=== PATIENT | female | born 1965 | race African-American/Black ===

== ENCOUNTER 2019-05-10 08:07 | Outpatient (CLI) | payer MEDICARE, MEDICAID, SELFPAY ==
--- NOTE | ~2019-05-10 | CT_ITS ---
EXAMINATION: CT abdomen pelvis w con DATE: 05/10/2019 08:47 INDICATION: Abdominal distention. Left leg lymphedema. TECHNIQUE: Computed tomography (CT) of the abdomen and pelvis was performed with 100 cc Omnipaque 350 intravenous contrast. Automated exposure control and iterative reconstruction technique were employe d. Exam dose: 1280.74 mGy-cm total exam DLP. COMPARISON: 10/15/2017 abdominal ultrasound complete FINDINGS: Prominent discoid atelectasis or scarring is noted at the lung bases bilaterally. There is a calcified pulmonary granuloma in the posterior left lower lobe. Normal heart size. No pericardial or pleural effusion. Small sliding hiatal hernia. Postoperative changes of the stomach and small bowel likely related to g astric bypass surgery. Status post cholecystectomy. No hepatic, splenic, pancreatic, adrenal or renal space-occupying mass l esion is detected. Small nonobstructing mid right renal calculus; no other urinary tract calculus or hydroureteronephrosis is evident. Atherosclerotic calcification of the abdominal aorta and iliac arteries; no abdominal aortic aneurysm is evident. No intraperitoneal or retroperitoneal or pelvic mass lesion or adenopathy or ascites is evident. Normal appendix. There is a prominent amount of fecal material in the colon but no evidence of bowel obstruction. There is extensive streak artifact from bilateral hip replacements, which unfortunately obscures the urinary bladder and a large portion of the lower pelvis. There are multiple ventral fat-containing abdominal wall hernias. There is multilevel degenerative disc disease of the lumbosacral spine, involving particularly L3-4, L4-5 and L5-S1. There is degenerative change at the apophyseal joints with associated grade 1 anterolisthesis at L4-5 . Diffuse idiopathic skeletal hyperostosis of the lower thoracic spine. Bilateral total hip replacement IMPRESSION: Small sliding hiatal hernia Gastric bypass Status post cholecystectomy Normal appendix. No evidence of bowel obstruction Small nonobstructing right renal calculus Multiple ventral abdominal wall fat-containing hernias Reviewed, dictated and finalized at Location [facility]. Reviewed, dictated and finalized at location B. UTIVE RELATIONS SPECIALIST
== END 2019-05-10 08:08 | disposition home or self-care (01) ==
LOC: ANHIMG 08:12
PROVIDERS: PCP Emergency Medicine; Visit Provider Emergency Medicine
DX: R14.0 Abdominal distension (gaseous) (principal); Z90.49 Acquired absence of other specified parts of digestive tract; K44.9 Diaphragmatic hernia without obstruction or gangrene; N20.0 Calculus of kidney; K43.9 Ventral hernia without obstruction or gangrene
CPT/HCPCS: 74177; Q9967

== ENCOUNTER 2019-05-19 08:40 | Outpatient (CLI) | payer MEDICARE, MEDICAID, SELFPAY ==
--- NOTE | ~2019-05-19 | MM_ITS ---
EXAMINATION: MM screening daryl BI w naeem HISTORY: Screening mammogram TECHNIQUE: Craniocaudal and mediolateral oblique 3-D tomosynthesis images were obtained and synthetic 2-D images were generated. CAD analysis was submitted and interpreted. COMPARISON: Comparison to multiple prior studies sequentially, with oldest reviewed study dated 10/14. BREAST PARENCHYMAL COMPOSITION: There are scattered areas of fibroglandular density. FINDINGS: There is no evidence of suspicious mass, calcification, or architectural distortion to sugg est malignancy in either breast. There has been no suspicious interval change. IMPRESSION: 1. No mammographic evidence of malignancy. 2. Recommend routine screening mammography in one year. BI-RADS Category 1: Negative Reviewed, dictated and finalized at location A. ARCH ADMINISTRATOR
--- NOTE | ~2019-05-19 | DEXA_ITS ---
Bone Density Report Name: Citlali Lucio Age: 53 Sex: Female Ethnicity: Black Date of : 1965 Indication: postmenopausal; height loss; asthma or emphysema; Referring Provider: OSCAR ABBOTT Study: Bone densitometry was performed. Exam Date: May 19, 2019 Accession number: [id number] Bone Density: Region BMD T-score Z-score Classification AP Spine (L1, L2) 1.082 0.9 1.0 Normal World Health Organization criteria for BMD impression classify patients as: Normal (T-score at or above -1.0), Osteopenia (T-score between -1.0 and -2.5), or Osteoporosis (T-score at or below -2.5). Clinical Information Provided by Patient: Smokes Has used the following medications: Vitamin D Has the following medical conditions: Asthma or Emphysema Patient maximum height was 69 Menopause Age: 52 No regular weight bearing exercise Drinks caffeinated beverages Onset of menses at age 9 Number of children 0 Impression: The patient has normal bone mass. The patient has risk factors, including: smoking. Discussion: BONE DENSITY IS ABOVE THE MINIMUM DESIRABLE LEVEL AT ALL SKELETAL SITES TESTED. This patient?s bone mineral density is above the minimum desirable level (T-score -1.0 or better) at all sites measured. The patient should follow a healthful lifestyle (good nutrition with adequate calcium and vitamin D, and appropriate weight-bearing exercise). Follow-Up: Consider repeating this study in 5 years or sooner if there is some new clinical indication. Reported by: SARAH on 05/19/2019 9:15:00 AM. Reviewed, dictated and finalized at location Ignacio CHONG
== END 2019-05-19 08:41 | disposition home or self-care (01) ==
LOC: ANHIMG 08:48
PROVIDERS: PCP Emergency Medicine; Visit Provider Emergency Medicine
DX: Z12.31 Encounter for screening mammogram for malignant neoplasm of breast (principal); Z78.0 Asymptomatic menopausal state
CPT/HCPCS: 77063; 77067; 77080

== ENCOUNTER 2020-09-25 16:34 | Emergency (ER) | payer MEDICARE, MEDICAID, SELFPAY ==
[2020-09-25 17:14] VITALS: BP 144/84; PULSE 81; RESP 16; TEMP 36.8; O2SAT 97
== END 2020-09-25 21:36 | disposition left against medical advice (07) ==
LOC: ANHED 21:22
PROVIDERS: PCP Internal Medicine Gastroenterology
DX: M54.2 Cervicalgia (principal)
CPT/HCPCS: 99199

== ENCOUNTER 2021-08-01 15:29 | Outpatient (CLI) | payer MEDICARE, MEDICAID, SELFPAY ==
--- NOTE | ~2021-08-01 | MR_ITS ---
EXAMINATION: MR shoulder LT wo con DATE: 08/01/2021 16:39 INDICATION: Left shoulder pain and weakness post fall TECHNIQUE: Magnetic resonance imaging (MRI) of the left shoulder was performed without intravenous co ntrast. Sequences included axial PD-weighted FS FSE, coronal oblique PD-weighted FS FSE, coronal obli que T2-weighted FS FSE, sagittal PD-weighted FS FSE, and sagittal T1-weighted SE. COMPARISON: None. FINDINGS: Coracoacromial arch: The acromion undersurface is minimally curved in morphology (type I-II). Small anterior subacromial s pur at the acromial attachment of the normal coracoacromial ligament. Mild acromioclavicular osteoart hritis. Rotator cuff: Mild supraspinatus and infraspinatus tendinopathy. There is partial thickness articular sided tear ex tending approximately 12 mm AP along the superior facet footplate of the supraspinatus tendon and inv olving up to maximal of one half of the tendon thickness. There is approximately 2 cm medial retracti on of the torn articular side of the tendon resulting in attenuation of the tendon lateral to the lev el of the thickened rotator cable. Teres minor and subscapularis tendons are normal. Normal rotator c uff muscle bulk and signal. Biceps tendon, glenoid labrum and glenohumeral cartilage: Long head of the biceps tendon is normal. Diffuse mild partial-thickness cartilage loss the glenoid w ith a delaminating chondral flap tear along the posterior inferior aspect of the glenoid remaining ap proximately 8 mm from the rim of the glenoid and extending peripherally to involve the base of the la lisa at the 8:00-o'clock position. There is an additional tear of the superior to posterior superior labrum. Fluid: Small amount of fluid extending along the long head biceps tendon sheath which is disproportionate to the physiologic amount fluid in the glenohumeral joint space consistent with mild bicipital tenosyno vitis. No loose osteochondral bodies. Small amount of fluid in the subacromial/subdeltoid bursa consi stent with mild bursitis. Bones: Normal marrow signal with no edema, fracture or abnormal marrow replacing process. Mild hypertrophic and cystic changes along the anterior greater tuberosity. IMPRESSION: 1. Mild supraspinatus and infraspinatus tendinopathy with small, moderate severity articular sided te ar along the superior facet footplate of the supraspinatus tendon. 2. Mild glenohumeral osteoarthritis with chondral flap tear and associated labral tear at the posteri or inferior glenoid and separate tear of the superior to posterior superior labrum. 3. Mild bicipital tenosynovitis. 4. Mild subacromial/subdeltoid bursitis. 5. Mild acromioclavicular osteoarthritis. Reviewed, dictated and finalized at location A. IMPRESSION: 1. Mild supraspinatus and infraspinatus tendinopathy with small, moderate sever ity articular sided tear along the superior facet footplate of the supraspinatu s tendon. 2. Mild glenohumeral osteoarthritis with chondral flap tear and associated labr al tear at the posterior inferior glenoid and separate tear of the superior to posterior superior labrum. 3. Mild bicipital tenosynovitis. 4. Mild subacromial/subdeltoid bursitis. 5. Mild acromioclavicular osteoarthritis.
== END 2021-08-01 15:30 | disposition home or self-care (01) ==
PROVIDERS: PCP Internal Medicine Gastroenterology; Visit Provider Orthopaedic Surgery
DX: M25.512 Pain in left shoulder (principal); S46.012A Strain of muscle(s) and tendon(s) of the rotator cuff of left shoulder, initial encounter; M19.012 Primary osteoarthritis, left shoulder; S43.432A Superior glenoid labrum lesion of left shoulder, initial encounter; M65.822 Other synovitis and tenosynovitis, left upper arm; M75.52 Bursitis of left shoulder
CPT/HCPCS: 73221

== ENCOUNTER 2021-10-03 12:31 | Outpatient (CLI) | payer MEDICARE, MEDICAID, SELFPAY ==
--- NOTE | ~2021-10-03 | XR_ITS ---
EXAMINATION: XR lg joint inject/asp w image DATE: 10/03/2021 13:32 INDICATION: Left shoulder osteoarthritis. TECHNIQUE: A time-out was performed to verify the patient's name, date of , and procedure to b e performed. The procedure including the risks, benefits, and alternatives was discussed with the pat ient. Risks discussed included bleeding and infection. The patient understood the risks and agreed to proceed. The skin overlying the left glenohumeral joint was prepped and draped in usual sterile fas hion. Anesthetic was administered with 1% lidocaine subcutaneously. A 22 G needle was advanced unde r fluoroscopic guidance into the joint. Subsequently, injectate consisting of 3 mL 1% lidocaine and 1 mL 80 mg/mL Depo-Medrol was instilled. The needle was removed and the entry site was cleaned and d ressed. There were no immediate complications. Fluoroscopy exposure time was 0.1 minutes. The total number of images was 1. FINDINGS: Real-time fluoroscopy demonstrates the needle in the left glenohumeral joint. Patient's leeann n prior to procedure:08/30. Patient's pain following the procedure: 07/30. IMPRESSION: 1. Fluoroscopy guided left glenohumeral joint injection of local anesthetic and steroid with decrease in the patient's presenting pain. Reviewed, dictated and finalized at location A.
== END 2021-10-03 12:32 | disposition home or self-care (01) ==
PROVIDERS: PCP Internal Medicine Gastroenterology; Visit Provider Orthopaedic Surgery
DX: M19.112 Post-traumatic osteoarthritis, left shoulder (principal)
CPT/HCPCS: 20610; 77002; J1040; Q9966

== ENCOUNTER 2021-11-15 10:01 | Outpatient (CLI) | payer MEDICARE, MEDICAID, SELFPAY ==
--- NOTE | 2021-11-15 | ECHO_ITS ---
Patient Info Name: Citlali Lucio Age: 56 years : 1965 Gender: Female Ht: 67 in Wt: 260 lbs BSA: 2.42 m2 HR: 67 bpm BP: 149 / 103 mmHg Heart Rhythm: Sinus Rhythm Exam Date: 11/15/2021 10:50 AM Exam Location: [facility] Patient Status: Outpatient Admit Date: 11/15/2021 Staff Ordering Physician: Melissa Rojas Precision Inspector: Gold Horn, CHIRAG, RT Attending Provider: Melissa Rojas Exam Type: CA echo doppler color flow Study Info Indications I10 - Essential (primary) hypertension Complete two-dimensional, color flow and Doppler transthoracic echocardiogram is performed. Strain analysis performed. Summary 1. Complete two-dimensional, color flow and Doppler transthoracic echocardiogram is performed. 2. Left ventricular hypertrophy with good systolic function grade 1 diastolic noncompliance. 3. Left atrial dilation. 4. Trivial mitral regurgitation. 5. Mild aortic valve sclerosis with mild aortic regurgitation. Left Ventricle Left ventricular chamber dimension is normal. Left ventricular systolic function is normal, estimated at 60-65%. There is mild concentric increased left ventricular wall thickness. The left ventricular diastolic function is grade I diastolic dysfunction. Right Ventricle Right ventricular chamber dimension is normal. Left Atria Left atrial chamber dimension is mildly enlarged. Right Atria Right atrial chamber dimension is normal. Aortic Valve The aortic valve is trileaflet. There is mild aortic valve sclerosis. There is mild aortic valve regurgitation. Pulmonic Valve The pulmonic valve is normal. Mitral Valve The mitral valve has normal leaflets. There is trace mitral valve regurgitation. The mitral valve annulus is mildly calcified. Tricuspid Valve The tricuspid valve leaflets are normal. Pericardium/Pleural The pericardium appears normal. Aorta The aortic root size at the sinus of Valsalva is normal. Left Ventricular Outflow Tract Name Value Normal LVOT 2D LVOT Diameter 2.0 cm LVOT Doppler LVOT Peak Gradient 5 mmHg LVOT Mean Gradient 3 mmHg LVOT VTI 25 cm LVOT VTI/AV VTI Ratio 0.6 LVOT Stroke Volume 79 ml LVOT CO 5.5 l/min LVOT CI 2.3 l/min/m2 Mitral Valve Name Value Normal MV Doppler MV Decel [place] 390 cm/s2 MV PHT 88 ms MV Area (PHT) 2.5 cm2 4.0-5.0 MV Diastolic Function MV E Peak Velocity 118 cm/s MV A Peak Velocity 142 cm/s MV E/A
== END 2021-11-15 10:02 | disposition home or self-care (01) ==
PROVIDERS: PCP Internal Medicine Gastroenterology
DX: J44.9 Chronic obstructive pulmonary disease, unspecified (principal); I10 Essential (primary) hypertension; I35.8 Other nonrheumatic aortic valve disorders
CPT/HCPCS: 93306

== ENCOUNTER 2022-03-25 15:18 | Outpatient (CLI) | payer MEDICARE, MEDICAID, SELFPAY ==
--- NOTE | ~2022-03-25 | US_ITS ---
Pelvic ultrasound. Clinical History: Postmenopausal bleeding Technique: Realtime transabdominal and transvaginal scanning of the pelvis was performed. Color flow Doppler and Doppler spectral analysis were performed. Findings: The uterus is anteverted. The endometrial stripe has a thickness of 2 mm. Small posterior exophytic fibroid measures 1.5 cm in diameter. Probable intramural fibroid measures 1.9 cm in diamete r. Neither ovary seen. No other adnexal mass seen. There is no evidence of free fluid in the cul de sac. Impression: Uterine fibroids, as above. Endometrial stripe is is within normal limits of thickness. Reviewed, dictated and finalized at location M. SITIONAL LIVING SPECIALIST Impression: Uterine fibroids, as above. Endometrial stripe is is within normal limits of thickness.
== END 2022-03-25 15:19 | disposition home or self-care (01) ==
PROVIDERS: Visit Provider Student in an Organized Health Care Education/Training Program
DX: N95.0 Postmenopausal bleeding (principal); D25.9 Leiomyoma of uterus, unspecified
CPT/HCPCS: 76830; 76856

== ENCOUNTER 2023-04-08 11:14 | Outpatient (CLI) | payer MEDICARE, MEDICAID, SELFPAY ==
[2023-04-08 12:26] LABS: Basophils Percent Auto 0.3 % (0.2-1.2); Eosinophils Absolute Auto 0.1 K/mm3 (0-0.3); Eosinophils Percent Auto 1.8 % (0-4.4); Hematocrit 46.2 % (37.0-47.0); Hemoglobin 14.6 g/dL (12.0-15.0); Immature Granulocyte Absolute 0.02 K/mm3 (0.00-0.031); Immature Granulocyte Percent A 0.3 % (0-0.5); Lymphocytes Absolute Auto 1.51 K/mm3 (0.9-3.2); Lymphocytes Percent Auto 22.3 % (18.3-44.2); Mean Corpuscular HGB Conc 31.6 g/dl (32-36); Mean Corpuscular Hemoglobin 30.5 pg (26-34); Mean Corpuscular Volume 96.7 fl (80-100); Mean Platelet Volume 12.4 fl (7.4-10.4); Monocytes Absolute Auto 0.7 K/mm3 (0.1-0.6); Monocytes Percent Auto 10.3 % (2.6-8.5); Neutrophils Absolute Auto 4.4 K/mm3 (1.3-6.7); Platelet Count Result 181 k/mm3 (150-375); Red Blood Count 4.78 M/mm3 (4.2-5.4); Red Cell Distribution Width 16.8 % (11.5-14.5); White Blood Count 6.8 K/mm3 (4.5-10.0)
[2023-04-08 12:37] LABS: Anion Gap 6 mmol/L (8-16); Blood Urea Nitrogen 6 mg/dL (7-17); Calcium 9.1 mg/dL (8.4-10.2); Carbon Dioxide 34 mmol/L (22-30); Chloride 100 mmol/L (98-107); Estimated Glomerular Filt Rate > 60; Glucose 85 mg/dL (65-110); Potassium 3.6 mmol/L (3.4-5.0); Sodium 140 mmol/L (137-145)
[2023-04-08 12:53] LABS: Urine Cotinine POSITIVE
[2023-04-08 13:51] LABS: Hemoglobin A1C 5.2 % (<5.7)
[2023-04-09 15:42] LABS: MRSA (PCR) NOT DETECTED (NOT DETECTE)
== END 2023-04-08 11:15 | disposition home or self-care (01) ==
LOC: ANHSURGERY 11:18
PROVIDERS: Anesthesiology; Visit Provider Orthopaedic Surgery
DX: Z01.818 Encounter for other preprocedural examination (principal); M17.11 Unilateral primary osteoarthritis, right knee; Z87.891 Personal history of nicotine dependence; Z79.899 Other long term (current) drug therapy
CPT/HCPCS: 80048; 80307; 82040; 83036; 85025; 86850; 86900; 86901; 87641

== ENCOUNTER 2023-05-21 10:43 | Outpatient (CLI) | payer MEDICARE, MEDICAID, SELFPAY ==
[2023-05-21 11:34] LABS: Urine Cotinine POSITIVE
== END 2023-05-21 10:44 | disposition home or self-care (01) ==
LOC: ANHSURGERY 10:50
PROVIDERS: Visit Provider Orthopaedic Surgery
DX: Z01.818 Encounter for other preprocedural examination (principal); M17.11 Unilateral primary osteoarthritis, right knee
CPT/HCPCS: 80307; 86850; 86900; 86901

== ENCOUNTER 2024-08-09 14:36 | Outpatient (CLI) | payer MEDICARE, MEDICAID, SELFPAY ==
--- NOTE | ~2024-08-09 | CT_ITS ---
Non-contrast Head CT History: Status post fall Technique: Axial imaging of the brain was performed prior to and following intravenous administratio n of 100 cc of Omnipaque 350 contrast material. Dose reduction technique was used on this scan by becky valadezing automated exposure control and iterative reconstruction technique. The dose-length product (DL P) was 1210.67 mGy-cm. Findings: There is no evidence of intracranial hemorrhage, mass lesion, or acute infarct. Brain par enchyma appears normal. The ventricles and subarachnoid spaces are normal in size. The calvarium ap pears normal. The visualized paranasal sinuses and mastoid air cells are clear. No suspicious postcontrast enhancement identified. Impression: No significant abnormality seen. Reviewed, dictated and finalized at [facility]. Impression: No significant abnormality seen.
--- OUTSIDE RECORDS SUMMARY | 2024-08-09 14:49 | XMS_ITS | Encounter Summary ---
Author Organization [facility] Address [address] [place] [address] Care Team Providers Care Aircraft Electronics Technical Officer Name Role Phone Unavailable Primary Care Provider Unavailabl e Reason for Visit * Diagnostic Imaging (Routine) - Closed Specialty Diagnoses / Procedures Referred By Contac t Referred To Contact Procedures Breast Imaging Screening Outside Reference Transcribed Order, Provider Referral ID Status Reason Start Date Expiration Date Visits Re quested Visits Authorized [id number] Closed 06/25/2023 07/24/2024 1 1 Encounter Details Date Type Department Care Team (Late st Contact Info) Description 06/11/2015 Hospital Encounter [facility] [address] [place] [address] Social History Tobacco Use Types Packs/Day Years [...] on file Legal Sex Female 9:28 AM SUPERINTENDENT NONSELLING Gender Identity Not on file Sexual Orientation Not on file documented as of this encounter Functional Status * Audit-C Score Answer Date of Assessment Author 1 06/12/2023 6:00 AM CDT Lashay Marie RN * Question Answer Date of Assessment Author Q1: How often do you have a drink containing alcohol? Monthly or less 06/12/2023 6:00 AM HESHAMT Lashay Marie RN Q2: How many drinks containing alcohol do you have on a typical day when you are drinking? 1 or 2 06/12/2023 6:00 AM HESHAMT Lashay Marie RN Q3: How often do you have six or more drinks on one occasion? Never 06/12/2023 6:00 AM CDT Lashay Marie RN documented as of this encounter Plan of Treatment Not on file documented as of this encounter Procedures Procedure Name Priority Date/Time Associated Diagnosis Comments BREAST IMAGING MG SCREENING OUTSIDE REFERENCE Routine 06/11/2015 12:00 AM CDT documented in this encounter Results * Breast Imaging Screening Outside Reference (06/11/2015 12:00 AM CDT) Impressions [facility] - 06/25/2023 11:39 AM CDT These images are for Reference purposes only and have not been reviewed by [facility]. There will be no report generated by a [facility] Radiologist. Narrative [facility] - 06/25/2023 11:39 AM CDT EXAMINATION: Images For Reference Purposes Only us Provider Transcribed Order IMG MAMMO PROCEDURES Final Result [facility] documented in this encounter Visit Diagnoses Not on filedocumented in this encounter
--- OUTSIDE RECORDS SUMMARY | 2024-08-09 14:49 | XMS_ITS | Clinical Summary ---
Author Organization [facility] Address [facility] [place] [address] Care Team Providers Care Instructor Traffic Safety Name Role Phone Bob Melissa Haylie AUTOMOBILE LOCATOR Primary Care Provider [phone] Allergies Active Allergy Reactions Criticality Noted Date Comments Aspirin Stomach upset,Vomiting Low 01/23/2016 Ibuprofen Vomiting Low 01/23/2016 Gastric bypass Latex Rash Medium Shrimp Anaphylaxis High 04/20/2019 Tramadol Stomach upset Medium 01/23/2016 Gastric bypass Medications zolpidem (AMBIEN) 10 mg tabletIndications :Sleep-Onset Insomnia,sleep Take 1 tablet (10 mg total) by mouth nightly 06/08/[address] (PROTONIX) 40 mg EC tabletIndications :Treatment of Non-Bleeding Gastric Disorder,gerd Take 1 tablet (40 mg total) by mouth daily after lunch 06/16/19 20 Active hydrOXYzine (ATARAX) 25 mg tabletIndications :anxiety Take 1 tablet (25 mg total) by mouth every morning 06/03/19 22 Active fluticasone propion-salmetero L (ADVAIR DISKUS) 250-50 mcg/dose diskus inhalerIndication s:Bronchospasm Prevention with COPD,Maintenance Therapy for Asthma Inhale 1 puff 2 (two) times a day 01/23/20 16 Active albuterol HFA (PROVENTIL HFA,VENTOLIN HFA,PROAIR HFA) 90 mcg/actuation inhalerIndication s:Acute Asthma Attack,Bronchospa sm Prevention,Chroni c Obstructive Pulmonary Disease Inhale 2 puffs every 6 (six) hours as needed for wheezing or shortness of breath Active DULoxetine DR (CYMBALTA) 60 mg capsuleIndication s:Anxiety with Depression Take 1 capsule (60 mg total) by mouth nightly 08/30/19 23 Active hydroCHLOROthiazi de (MICROZIDE) 12.5 mg capsuleIndication s:Edema,hypertens ion Take 1 capsule (12.5 mg total) by mouth every morning Active ipratropium-albut Emerson (DUO-NEB) 0.5-2.5 mg/3 mL nebulizer solutionIndicatio ns:Chronic Obstructive Pulmonary Disease with Bronchospasms Take 3 mL by nebulization every 6 (six) hours as needed for wheezing or shortness of breath 08/30/19 23 Active semaglutide (OZEMPIC) 1 mg/dose (4 mg/3 mL) pen injector injectionIndicati ons:weight loss Inject 1 mg under the skin once a week Mondays Active oxygenIndications :Dyspnea Administer 2,100 L/min into each nostril nightly as needed (PRN for SOB through CPAP machine) Active QUEtiapine (SEROquel) 300 mg tabletIndications :Generalized Anxiety Disorder Take 1 tablet (300 mg total) by mouth nightly at bedtime 01/27/20 23 Active mv,kal,iron,mn/fo lic acid/chol (EGSI-YHEP-FTNNQ, PABA, ORAL)Indications: supplement Take 2 tablet/chew tab by mouth every evening Active furosemide (LASIX) 40 mg tabletIndications :Edema Take 1 tablet (40 mg total) by mouth as needed (swelling) Active acetaminophen (TYLENOL) 325 mg tabletIndications :Pain Take 2 tablets (650 mg total) by mouth every 6 (six) hours 90 tablet 1 06/15/19 24 Active senna-docusate (PERICOLACE) 8.6-50 mgIndications:con stipation Take 2 tablets by mouth 2 (two) times a day 60 tablet 1 06/15/19 24 Active Additional Information Patient not taking.Reported on 10/15/2023 ergocalciferol (VITAMIN D) 50,000 unit capsule TAKE 1 CAPSULE BY MOUTH ONE TIME PER WEEK 12 capsule 1 07/03/19 24 Active oxyCODONE (ROXICODONE) 5 mg immediate release tabletIndications :Pain Take 1-2 tablets (5-10 mg total) by mouth every 6 (six) hours as needed for pain 42 tablet 07/13/19 24 Active Active Problems Problem Noted Date Diagnosed Date Chronic pain of right knee 06/12/2023 Knee pain 02/05/2023 Sprain of metacarpophalangeal joint 02/05/2023 Primary localized osteoarthritis of pelvic regio n and thigh 02/05/2023 Osteoarthritis of hip 02/05/2023 Menorrhagia 02/05/2023 Left lower quadrant pain 02/05/2023 Irregular periods 02/05/2023 Increased frequency of urination 02/05/2023 Menopause 02/05/2023 Shortness of breath on exertion 12/05/2022 Morbid obesity 08/21/2022 Osteoarthritis of right knee 06/18/2022 Nontraumatic incomplete tear of left rotator cuf f 12/13/2021 Overview (12/13/2021): Added automatically from request for surgery [id number] Impingement syndrome of left shoulder 12/13/2021 Overview (12/13/2021): Added automatically from request for surgery [id number] Biceps tendinitis of left upper extremity 2021 Overview (12/13/2021): Added automatically from request for surgery [id number] Tear of left rotator cuff 09/25/2021 Pain in joint of right shoulder 07/24/2021 Primary osteoarthritis of right knee 06/11/2021 Overview (06/11/2021): Added automatically from request for surgery [id number] History of bilateral hip replacements 01/29/2018 Right knee pain 01/29/2018 Tobacco dependence syndrome 01/23/2016 Other specified symptoms and signs involving the circulatory and respiratory systems 01/23/2016 Hypertension 01/23/2016 Asthma 01/23/2016 Localized adiposity 01/21/2012 Anemia 03/10/2011 Encounters Date Type Department Care Team Description 07/05/2024 8:51 AM CDT - 07/05/2024 11:59 PM CDT Hospital Encounter [facility] [place] [address] Chronic obstructive pulmonary disease, unspecified COPD type (HCC) Discharge Disposition: Discharge to home or self care 07/04/2024 3:27 PM CDT - 07/04/2024 11:59 PM CDT [facility] [place] [address] [place] [address] Chronic obstructive pulmonary disease, unspecified COPD type (HCC) Discharge Disposition: Discharge to home or self care from Last 3 Months Immunizations Immunization Administration Dates Next Due Influenza, Quadrivalent, Split, Intramuscular Influenza, Unspecified 01/01/2017 Surgical History Surgery Date Site/Laterality Comments ID GASTRIC RSTCV W/BYP W/SHORT LIMB 150 CM/< 03/23/2005 - 03/22/2006 Gastric Surgery For Morbid Obesity Bypass With Ellen-en-Y - 2005 (Added by ANDRÉS Conv) ID RPR UMBILICAL HERNIA < 5 YRS REDUCIBLE 03/23/2005 - 03/22/2006 Umbilical Hernia Repair - 2005 (Added by ANDRÉS Conv) CHOLECYSTECTOMY 03/23/1999 - 03/22/2000 COLONOSCOPY 03/23/2016 - 03/22/2017 ABDOMINOPLASTY 03/23/2006 - 03/22/2007 REDUCTION MAMMAPLASTY 03/23/2008 - 03/22/2009 Bilateral TOTAL HIP ARTHROPLASTY 03/23/2018 - 03/22/2019 Bilateral ROTATOR CUFF REPAIR 01/01/2022 Right SHOULDER SURGERY 03/23/2021 - 03/22/[address] 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 Gender Identity Not on file Sexual Orientation Not on file Obstetrics History Last Filed Vital Signs Vital Sign Reading Time Taken Comments Blood Pressure 152/83 06/15/2023 9:52 AM CDT Pulse 93 06/15/2023 9:52 AM CDT Temperature 36.7 C (98.1 F) 06/15/2023 8:10 AM CDT Respiratory Rate 16 06/15/2023 8:10 AM CDT Oxygen Saturation 98% 06/15/2023 9:52 AM CDT Inhaled Oxygen Concentration - - Weight 104.3 kg (230 lb) 06/12/2023 6:07 AM CDT Height 167.6 cm (5' 6 ) 06/12/2023 6:07 AM CDT Body Mass Index 37.12 06/12/2023 6:07 AM CDT Plan of Treatment Health Maintenance Due Date Last Done Comments Breast Cancer Screening-Mammogram 1966 Cervical Cancer Screening 1966 Colon Cancer Screening-Colonoscopy 1966 Depression Screening 1966 Hepatitis C Screening 1966 DTaP/Tdap/Td Vaccine (1 - Tdap) 1977 Hepatitis B Screening 1984 Regular Well Visit/Exam 18-64 1984 Pneumococcal vaccine <65 (1 of 2 - PCV) 1985 Lung Cancer Screening 2016 Zoster Vaccine (1 of 2) 2016 Covid-19 Vaccine (5 - 2023-2 5 season) 2023 01/25/2021, 05/25/2020, 04/30/2020, Additional history exists Influenza Vaccine (Season Ended) 2024 02/21/20 18, 01/01/2017 Medical Devices Implanted Type Area On Air Host Device Identifier Shelf Expiration Date Model / Serial / Lot Hip Replacement Bilateral: Hip [employer] Swivelock C 4.75mm 19.1mm Closed Eyelet Vent [place] Suture Ar-2324bcc - [id number] Implanted:Qty: 1 on 01/01/2022 by Kade Rivera MD at [facility] [employer] [id number] 09/19/2025 AR-2324BC C / / [id number] [employer] Swivelock C 4.75mm 19.1mm Closed Eyelet Vent [place] Suture Ar-2324bcc - [id number] Implanted:Qty: 1 on 10/01/2022 by Kade Rivera MD at [facility] Right: Shoulder [employer] [id number] 05/20/2026 AR-2324BCC / / [id number] [employer] Baseplate Tibial Knee Cemented Right Fixed Stemmed Persona Size E Tivanium [id number] - [id number] Implanted:Qty: 1 on 06/12/2023 by Surinder Garcia MD at [facility] Right: Knee [employer] [id number] 03/07/2033 [id number] / / [id number] [employer] Persona 14mm 30+ Mm Knee Tibia Taper Extension Stem [id number] - [id number] Implanted:Qty: 1 on 06/12/2023 by Surinder Garcia MD at [facility] Right: Knee [employer] [id number] 06/14/2032 [id number] / / [id number] [employer] Persona Cemented Posterior Stabilize Knee Right 8 Standard [id number] - [id number] Implanted:Qty: 1 on 06/12/2023 by Surinder Garcia MD at [facility] Right: Knee [employer] [id number] 08/17/2030 [id number] / / [id number] [employer] Simplex P Full Dose Radiopaque Preblend Cement Bone Tobramycin 6197-9-001 - [id number] Implanted:Qty: 2 on 06/12/2023 by Surinder Garcia MD at [facility] Right: Knee [employer] 08/20/2024 [id number] / / [id number] [employer] Insert Tibial Knee Vitamin E Fixed Rt Persona Vivacit E 10mm Size 6 9 E F Polyethylene [id number] - [id number] Implanted:Qty: 1 on 06/12/2023 by Surinder Garcia MD at [facility] Right: Knee [employer] [id number] 09/05/2027 [id number] / / [id number] Procedures Procedure Name Priority Date/Time Associated Diagnosis Comments PULMONARY FUNCTION TEST (PFT) Routine 07/05/2024 9:51 AM CDT Chronic obstructive pulmonary disease, unspecified COPD type (HCC) CT CHEST WO CONTRAST Schedule Routine, Read Routine (OP Routine) 07/04/2024 4:00 PM CDT Chronic obstructive pulmonary disease, unspecified COPD type (HCC) from Last 3 Months Results * Pulmonary Function Test - (07/05/2024 9:51 AM CDT) FVC POST 2.67 L 07/05/2024 9:47 AM CDT [facility] FEV1 POST 1.84 L 07/05/2024 9:47 AM CDT [facility] [id number] 69.01 % 07/05/2024 9:47 AM CDT [facility] DQN98-80% POST 1.18 L/s 07/05/2024 9:47 AM CDT [facility] PEF POST 4.43 L/s 07/05/2024 9:47 AM CDT [facility] DLCOc SB 14.12 ml/(min*mm Hg) 07/05/2024 9:47 AM CDT [facility] DLCO/VA PRE 4.06 ml/(min*mm Hg*L) 07/05/2024 9:47 AM CDT [facility] VA 3.48 L 07/05/2024 9:47 AM CDT [facility] TLC PRE 5.09 L 07/05/2024 9:47 AM CDT [facility] VC PRE 2.39 L 07/05/2024 9:47 AM CDT [facility] IC PRE 2.04 L 07/05/2024 9:47 AM CDT [facility] FRC PL PRE 3.12 L 07/05/2024 9:47 AM CDT [facility] ERV PRE 0.42 L 07/05/2024 9:47 AM CDT [facility] RV PRE 2.69 L 07/05/2024 9:47 AM CDT [facility] RAW PRE 6.57 cmH2O*s/L 07/05/2024 9:47 AM CDT [facility] VTG 3.97 L 07/05/2024 9:47 AM CDT [facility] FVC PRE 2.27 L 07/05/2024 9:47 AM CDT [facility] FEV1 PRE 1.49 L 07/05/2024 9:47 AM CDT [facility] [id number] 65.64 % 07/05/2024 9:47 AM CDT [facility] OAT29-43% PRE 0.84 L/s 07/05/2024 9:47 AM CDT [facility] PEF PRE 3.96 L/s 07/05/2024 9:47 AM CDT [facility] Anatomical Region Laterality Modality PFT 07/05/2024 8:59 AM CDT Narrative 07/05/2024 11:30 AM CDT Spirometry data demonstrates moderate obstruction. There is a positive bronchodilator response which can be seen with reactive airways. And volumes demonstrate air trapping. DLCO is reduced compatible with diffusion impairment. Findings can be seen with emphysema or other pulmonary vascular or pulmonary parenchymal process. Suggest clinical correlation. Electronically signed by Ralph Raygoza MD, [facility] Pul[facility] Critical [facility] us Mckayla Alicia AUTOMOBILE LOCATOR PFT ORDERABLES Final Re sult * CT Chest WO Contrast (07/04/2024 4:00 PM CDT) Anatomical Region Laterality Modality Body N/A Computed Tomogra phy 07/13/2024 7:24 AM CDT Narrative 07/13/2024 7:35 AM CDT EXAM DESCRIPTION: CT CHEST WO CONTRAST REASON FOR STUDY: chronic obstructive pulmonary disease H/O COPD, chronic cough since surg last year TECHNIQUE: CT scan of the chest performed without intravenous contrast using helical scanning technique. Reconstructed coronal and sagittal MPR images reviewed. All images stored on PACS. Automated exposure control was used as a dose optimization technique for this examination. COMPARISON: None FINDINGS: The sensitivity for detection of solid visceral lesions is diminished without the use of intravenous contrast. LUNGS: There is mild emphysema. No suspicious nodules or masses. Several linear opacities at both lung bases are due to plates of atelectasis or linear scars. No pneumonia. PLEURA: No effusion. No pneumothorax. MEDIASTINUM/PEDRITO: No identified masses or abnormal nodes. HEART: Heart size is normal with no pericardial effusion. CORONARY ARTERY CALCIFICATION: None VASCULATURE: No thoracic aortic aneurysm. AXILLA: No adenopathy. CHEST WALL: No masses. No subcutaneous air. HARDWARE/LINES/TUBES: None. UPPER ABDOMEN: No significant abnormality. MUSCULOSKELETAL: No significant abnormality. OTHER: No other significant abnormality. IMPRESSION: Mild emphysema. No evidence of lung cancer. Recommend evaluation for annual lung cancer screening enrollment if the patient qualifies based on clinical factors and smoking history. THIS IS AN ELECTRONICALLY VERIFIED FINAL REPORT 07/13/2024 7:35 AM - Electronically signed by Celestine MARIE T: Report ID: [id number] Reading Location: [place] [address] Procedure Note Keith Villarreal MD - 07/13/2024 EXAM DESCRIPTION: CT CHEST WO CONTRAST REASON FOR STUDY: chronic obstructive pulmonary disease H/O COPD, chronic cough since surg last year TECHNIQUE: CT scan of the chest performed without intravenous contrastusing helical scanning technique. Reconstructed coronal and sagittal MPR images reviewed. All images stored on PACS. Automated exposure control was usedas a dose optimization technique for this examination. COMPARISON: None FINDINGS: The sensitivity for detection of solid visceral lesions is diminished without the use of intravenous contrast. LUNGS: There is mild emphysema. No suspicious nodules or masses.Several linear opacities at both lung bases are due to plates of atelectasis orlinear scars. No pneumonia. PLEURA: No effusion. No pneumothorax. MEDIASTINUM/PEDRITO: No identified masses or abnormal nodes. HEART: Heart size is normal with no pericardial effusion. CORONARY ARTERY CALCIFICATION: None VASCULATURE: No thoracic aortic aneurysm. AXILLA: No adenopathy. CHEST WALL: No masses. No subcutaneous air. HARDWARE/LINES/TUBES: None. UPPER ABDOMEN: No significant abnormality. MUSCULOSKELETAL: No significant abnormality. OTHER: No other significant abnormality. IMPRESSION: Mild emphysema. No evidence of lung cancer. Recommend evaluation for annual lung cancer screening enrollment if the patient qualifies based on clinical factors and smoking history. THIS IS AN ELECTRONICALLY VERIFIED FINAL REPORT 07/13/2024 7:35 AM - Electronically signed by Celestine Villarreal M.D. FRANK T: Report ID: [id number] Reading Location: [id number] Mckayla SadieRonny Alicia AUTOMOBILE LOCATOR IMG CT PROCEDURES Final Result from Last 3 Months Insurance [employer] [facility] MEDIC[facility] ADVANTAGE [facility] Address: [address] [address] [place] [address] [employer] [facility] MEDICARE ADVANTAGE [facility] MEDICARE ADVANTAGE Advance Directives For more information, please contact: [phone] * Full Code (Latest Code Status on File) Date Activated Date Inactivated Comments 06/12/2023 2:14 PM 06/15/2023 4:51 PM Care Teams Instructor Traffic Safety Relationship Specialty Start Date End Date Melissa Rojas NP PCP - General Nurse Practitioner 11/13/21
--- OUTSIDE RECORDS SUMMARY | 2024-08-09 14:49 | XMS_ITS | CONTINUITY OF CARE DOCUMENT ---
Author Name josiane, josiane Address Unknown Organization [facility] Address [address] [place] [address] Phone [phone] Care Team Providers Care Ssis Etl Developer Name Role Phone Shen Us MD Unavailable OLIVIA COMPLAINT EVALUATION OFFICER, SEFERINO Unavailable OLIVIA COMPLAINT EVALUATION OFFICER, SEFERINO Unavailable PROBLEMS Condition Status Date Provider Notes Other symptoms involving car diovascular system active Hamlet Wiley MD HYPERTENSION active Hamlet Wiley MD Chest pain active Hamlet Wiley MD Asthma active Hamlet Wiley MD anemia active Hamlet Wiley MD Tobacco abuse active Hamlet Wiley MD MORBID OBESITY - S/P Gastric Bypass active Hamlet Wiley MD Shortness of breath on exertion active Ann Us MD Chest pressure active Shen Us MD ENCOUNTERS Date Type Provider Location Encounter Diag nosis - In-person encounter Office Visit Shen Us MD [facility] - In-person encounter Office Visit Shen Us MD [facility] Shortness of breath on exertionChest pressure - In-person encounter Office Visit Hamlet Wiley MD [facility] Other symptoms involving cardiovascular systemHYPERTENSIONChest painAsthmaanemiaTobacco abuseMORBID OBESITY - S/P Gastric Bypass VITAL SIGNS Date Observation Value Provider Body Mass Index (Ratio) 38.16 kg/m2 Ann Us MD blood pressure, cuff size large Ja rret blood pressure, diastolic 75 mm[Hg] Ja rret blood pressure, systolic 113 mm[Hg] Jar ret pulse rate 87 /min Raghavendra y respiratory rate E&M 12 /min Raghavendra weight E&M 251 [lb_av] Raghavendra y height E&M 68 [in_i] Raghavendra y Body Mass Index (Ratio) 39.38 kg/m2 Ann Us MD blood pressure, diastolic 80 mm[Hg] Li nkLogic blood pressure, systolic 137 mm[Hg] Claudia kLogic blood pressure, cuff size large Ja rret blood pressure, diastolic 80 mm[Hg] Ja rret blood pressure, systolic 137 mm[Hg] Jar ret pulse rate 84 /min Raghavendra respiratory rate E&M 12 /min Raghavendra weight E&M 259 [lb_av] Raghavendra y height E&M 68 [in_i] Raghavendra y blood pressure, diastolic 80 mm[Hg] Me howell Arslan blood pressure, systolic 119 mm[Hg] Emily mak Mcdaniels pulse rate 74 /min Shadia Arslan oxygen saturation, oximetry 98 % Shadia Arslan respiratory rate E&M 15 /min Shadia Mcdaniels Body Mass Index (Ratio) 40.90 kg/m2 Halley lazar Arslan weight E&M 269 [lb_av] Shadia Mcdaniels height E&M 68 [in_i] Shadia Mcdaniels ALLERGIES Allergy Name Onset Date Reaction Criticality Status IBUPROFEN High Criticality active TRAMADOL High Criticality active ASA High Criticality active HISTORY OF MEDICATION USE Medication Status Instructions Dates Provider Indications Com ments HYDROCODONE-ACET AMINOPHEN 7.5-325 MG ORAL TABLET active as needed Shadia Arslan ADVAIR DISKUS 250-50 MCG/DOSE INHALATION AEROSOL POWDER BREATH ACTIVATED active 1 puff twice daily Shadia Arslan CARTIA XT 180 MG ORAL CAPSULE EXTENDED RELEASE 24 HOUR active once daily Shadia Arslan AMBIEN CR 12.5 MG ORAL TABLET EXTENDED RELEASE active once daily Shadia Arslan SOCIAL HISTORY Date Observation Value Provider social history E&M S moking History: P atient currently smokes every day. P atient has been counseled to quit. Shen Us MD smoking/tobacco cess ation, patient education and counseling yes Shen Us MD smoking status Current every day smoker Pb Us MD social history reviewed E&M revi ewed - no changes required Shen Us MD drug use no Shen Us MD alcohol use no Shen Us MD smoking/tobacco cess ation, patient education and counseling yes Shen sU MD smoking, date started 1992 Shen Us MD cigarette use yes Shen High smoking status Current every day smoker Pb Us MD social history E&M S moking History: P atient currently smokes every day. P atient has been counseled to quit. Shen Us MD social history reviewed E&M revi ewed - no changes required Shen Us MD social history E&M S moking History: P kiran currently smokes every day. P atcarolynn has been counseled to quit. Hamlet Wiley MD social history reviewed E&M i ewed - no changes required Hamlet Wiley MD smoking/tobacco cess ation, patient education and counseling yes Shadia Arslan smoking, date started 1992 Rubén arias Arslan cigarette use yes Shadia Arslan smoking status Current every day smoker Bo Mcdaniels FAMILY HISTORY Family Member Condition Father Family History of Co ronary Artery Disease: INSURANCE PROVIDERS Payer name Policy type / Coverage type [place] red green party ID AARP MEDICARE ADVANTAGE ([facility] COMPLETE PPO) Other [id number] [facility] Medicaid 1 [id number] ADVANCE DIRECTIVES Name Date DISCUSSED - NO DECISION MADE TREATMENT PLAN Date Name Performer [id number],S, Shen Us MD [id number],C, B P today: 113/75 P rior BP: 137/80 (12/05/2022) Her updated medication list for this problem includes: Cartia Xt 180 Mg Oral Capsule Extended Release 24 Hour (Diltiazem hcl coated beads) ..... Once daily Shen Us MD [id number],C,T he Patient was reencouraged to stop smoking. Shen Us MD [id number],C,r esolved Patient has undergone a nuclear stress test that showed a moderate sized area of decreased perfusion of inferolateral wall, suggesting a prior infarct. She is having no more discomfort and i think at this time i would recommend GDMT. If she has recurrence of Sx will recommend cardiac cath Shen Us MD Cardiology Shen Us MD Cardiology: B P today: 113/75 P rior BP: 137/80 (12/05/2022) Her updated medication list for this problem includes: Cartia Xt 180 Mg Oral Capsule Extended Release 24 Hour (Diltiazem hcl coated beads) ..... Once daily Shen Us MD Cardiology:The Patient was reenc ouraged to stop smoking. Shen Us MD Cardiology:resolved Patient has undergone a nuclear stress test that showed a moderate sized area of decreased perfusion of inferolateral wall, suggesting a prior infarct. She is having no more discomfort and i think at this time i would recommend GDMT. If she has recurrence of Sx will recommend cardiac cath Shen Us MD Cardiology:Tobacco a buse - smoking cessation strongly advised Hamlet Wiley MD Cardiology:She has l ost over 200 pounds. Continues to be on a diet. Hamlet Wiley MD Cardiology:Blood pre ssure control is satisfactory. She continues on Cartia XT Hamlet Wiley MD Cardiology:Resolved. No recurrence. Her recent stress test was normal. Hamlet Wiley MD Date Name Stress Regadenoson Complete Echo HISTORY OF PROCEDURES Procedure Date Procedure Name Provider Procedure Notes S tatus EKG Shen Us MD completed SNOMED-CT: 36855644 Physical Exam, Performed: Pulse Exam of Foot Hamlet Wiley MD completed EKG Hamlet Wiley MD complet ed SNOMED-CT: 373076001 [id number] Current Medications Documented Hamlet Wiley MD completed
--- OUTSIDE RECORDS SUMMARY | 2024-08-09 14:49 | XMS_ITS | Encounter Summary ---
Author Organization [facility] Healthcare Address [address] [place] [address] Care Team Providers Care Equipment Service Lead Name Role Phone Unavailable Primary Care Provider Unavailabl e Reason for Visit * Diagnostic Imaging (Routine) - Closed Specialty Diagnoses / Procedures Referred By Contac t Referred To Contact Procedures Breast Imaging Screening Outside Reference Transcribed Order, Provider Referral ID Status Reason Start Date Expiration Date Visits Re quested Visits Authorized [id number] Closed 06/25/2023 07/24/2024 1 1 Encounter Details Date Type Department Care Team (Late st Contact Info) Description 04/18/2014 Hospital Encounter [facility] [address] [place] [address] Social History Tobacco Use Types Packs/Day Years [...] on file 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 Never 06/12/2023 6:00 AM HESHAMT Lashay Marie RN documented as of this encounter Plan of Treatment Not on file documented as of this encounter Procedures Procedure Name Priority Date/Time Associated Diagnosis Comments BREAST IMAGING MG SCREENING OUTSIDE REFERENCE Routine 04/18/2014 12:00 AM REHANGER documented in this encounter Results * Breast Imaging Screening Outside Reference (04/18/2014 12:00 AM REHANGER) Impressions [facility] - 06/25/2023 11:39 AM CDT These images are for Reference purposes only and have not been reviewed by [facility] Radiology. There will be no report generated by a [facility] Radiologist. Narrative [facility] - 06/25/2023 11:39 AM CDT EXAMINATION: Images For Reference Purposes Only us Provider Transcribed Order IMG MAMMO PROCEDURES Final Result [facility] documented in this encounter Visit Diagnoses Not on filedocumented in this encounter
--- OUTSIDE RECORDS SUMMARY | 2024-08-09 14:49 | XMS_ITS | Clinical Summary ---
Author Organization [facility] Address [address] [place] [address] Care Team Providers Care Paint Striping Machine Operator Name Role Phone Unavailable Primary Care Provider Unavailabl e Source Comments [facility],non-owned Affiliates and Associated Physician Practices is amultiple site organization consisting of ambulatory clinics and hospital sitesin [place], [place], [place] and [place]. This disclosure is being madepursuant to the Care Everywhere program and may not contain all information available regarding this patient. Last updated 17.[facility] [employer] Allergies Active Allergy Reactions Criticality Noted Date Comments Aspirin GI Discomfort 06/18/2023 Gabapentin GI Discomfort 06/18/2023 Latex Itching 06/18/2023 Shrimp (Diagnostic) Itching 06/18/2023 Tramadol GI Discomfort 06/18/2023 Medications * Be aware that medications may not be up to date on this document. Alwaysverify current medications with the patient. acetaminophen (Tylenol) 325 MG tabletIndication s:Pain Take 325 mg by mouth every 6 hours as needed for Pain. take 2 tablets every 6 hrs for mild to mod pain Indications: Pain 06/15/19 24 Active Albuterol Sulfate 108 (90 Base) MCG/ACTIndicatio ns:Acute Exacerbation of COPD (Inactive) Inhale 90 mcg by mouth every 6 hours as needed (sob/wheezing). 2 puffs every 6 hrs as needed for sob/wheezing Indications: Acute Worsening of Chronic Obstructive Pulmonary Disease 06/17/19 18 Active apixaban (Eliquis) 2.5 MG tabletIndication s:post op DVT prevention Take 2.5 mg by mouth 2 times daily. Indications: post op DVT prevention 06/15/19 24 Active DULoxetine (Cymbalta) 60 MG capsuleIndicatio ns:anxiety Take 60 mg by mouth at bedtime. Indications: anxiety 07/18/19 Active Vitamin D, Ergocalciferol, 41332 units CAPSIndications: Vitamin D Deficiency Take 50,000 Units by mouth every 7 days. Indications: Vitamin D Deficiency 06/17/19 Active fluticasone-salm eterol (Advair Diskus) 250-50 MCG/ACT inhalerIndicatio ns:Asthma,Chroni c Obstructive Pulmonary Disease Inhale 1 puff by mouth 2 times daily. Indications: Asthma, Chronic Obstructive Lung Disease 06/17/19 Active furosemide (Lasix) 40 MG tabletIndication s:Edema Take 40 mg by mouth as needed (swelling). prn for swelling Indications: Edema 06/17/19 Active Multiple Vitamins-Mineral s (HAIR SKIN NAILS PO)Indications:v itamin supplement Take 2 tablets by mouth at bedtime. Indications: vitamin supplement 06/17/19 Active hydroCHLOROthiaz zane (Hydrodiuril) 25 MG tabletIndication s:Edema Take 12.5 mg by mouth once daily. Indications: Edema 06/17/19 Active hydrOXYzine HCl (Atarax) 25 MG tabletIndication s:Anxiety Take 25 mg by mouth once daily. Indications: Feeling Anxious 06/17/19 Active albuterol-ipratr opium (Duo-Neb) 0.5-2.5 (3) MG/3ML nebulizer solutionIndicati ons:Acute Exacerbation of COPD (Inactive),Asthm a Inhale 3 mL by mouth every 6 hours. every 6 hrs as needed for sob/cough/wheeze Indications: Acute Worsening of Chronic Obstructive Pulmonary Disease, Asthma 06/17/19 Active methocarbamol (Robaxin) 500 MG tabletIndication s:Musculoskeleta l Pain Take 500 mg by mouth 3 times daily. Indications: Musculoskeletal Pain 06/15/19 Active oxyCODONE, immediate release, (Roxicodone) 5 MG tabletIndication s:Acute Pain Take 5 mg by mouth every 4 hours as needed for Pain. prn for mod to severe pain Indications: Acute Pain 06/15/19 Active OxygenIndication s:uses O2 2 L when using CPAP machine Use 2 L at bedtime. Indications: uses O2 2 L when using CPAP machine 06/17/19 Active pantoprazole EC (Protonix) 40 MG tabletIndication s:Gastroesophage al Reflux Disease Take 40 mg by mouth once daily. take after lunch Indications: Gastroesophageal Reflux Disease 06/17/19 17 Active QUEtiapine (SEROquel) 25 MG tabletIndication s:sleep Take 300 mg by mouth at bedtime. Indications: sleep 06/17/19 18 Active Semaglutide (1 MG/DOSE) 4 MG/3ML Subcutaneous Solution Pen-injector (Ozempic)Indicat ions:weight loss Inject 1 mg subcutaneously every 7 days. takes every Thursday Indications: weight loss 05/22/19 23 Active Sennosides-Docus ate Sodium (Senna-Docusate Sodium) 8.6-50 MGIndications:Co nstipation Take 2 tablets by mouth 2 times daily. Indications: Constipation 06/15/19 24 Active zolpidem (Ambien) 10 MG tabletIndication s:Insomnia Take 10 mg by mouth at bedtime. Indications: Trouble Sleeping 06/17/19 18 Active Social History Tobacco Use Types Packs/Day Years Used Date Smoking Tobacco: Never Assessed OASIS D0700: Social Isolation Answer Da te Recorded Frequency of experiencing loneliness or isolatio n Never 07/22/2023 OASIS A1250: Transportation Answer Date Recorded Lack of Transportation (Medical) No 07/22/2023 Lack of Transportation (Non-Medical) No 07/22/2023 Patient Unable or Declines to Respond No 07/22/2023 OASIS B1300: Health Literacy Answer Shay e Recorded Frequency of needing help to read materials from doctor or pharmacy Never 07/22/2023 Comments Unknown Sex and Gender Information Value Date Recorded Sex Assigned at Not on file 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 Gender Identity Not on file Sexual Orientation Not on file Last Filed Vital Signs Vital Sign Reading Time Taken Comments Blood Pressure 102/64 07/22/2023 11:50 AM CDT Pulse 80 07/22/2023 11:50 AM CDT Temperature 36.8 C (98.2 F) 07/22/2023 11:50 AM CDT Respiratory Rate 17 07/22/2023 11:50 AM CDT Oxygen Saturation 98% 07/22/2023 11:50 AM CDT Inhaled Oxygen Concentration - - Weight - - Height - - Body Mass Index - - Plan of Treatment Health Maintenance Due Date Last Done Comments ANNE-MARIE (AGES 45-75) - COL ON CA SCREENING 1965 COLON MONITORING 1966 COLONOSCOPY - COLON CA SCREENING 1966 CT COLONOGRAPHY - COLON CA SCREENING 1966 Colorectal Cancer Screening 1966 FIT - COLON CA SCREENING 1966 FLEX SIG - COLON CA SCREENING 1966 LIPID TESTING 1966 MAMMOGRAM 1966 PAP SMEAR 1966 HIV SCREENING 1981 HEPATITIS C SCREENING 05/28/1984 DTAP/TDAP/TD VACCINES (1 - Tdap) 1985 HEPATITIS B VACCINE (1 of 3 - 19+ 3-dose series) 1985 PNEUMOCOCCAL VACCINE 50+ (1 of 1 - PCV) 2016 ZOSTER VACCINE (1 of 2) 2016 COVID-19 VACCINE (1 - 2023-2 5 season) 2023 DEPRESSION SCREENING 03/23/2024 MEDICARE AWV CALENDAR YEAR 2024 INFLUENZA VACCINE (Season Ended) 2024 02/20/2018, 01/01/2017 HIB VACCINE Aged Out No longer eligi ble based on patient's age to complete this topic HPV VACCINE Aged Out No longer eligi ble based on patient's age to complete this topic MENINGOCOCCAL (Group B) VACCINE SHARED DECISION-MAKING Aged Out No longer eligible based on patient's age to complete this topic MENINGOCOCCAL GROUPS A/C/Y/W VACCINE Aged Out No longer eligible b ased on patient's age to complete this topic Insurance [facility] MANAGED MEDICARE ADV
--- OUTSIDE RECORDS SUMMARY | 2024-08-09 14:49 | XMS_ITS | Encounter Summary ---
Author Organization [facility] Healthcare Address [address] [place] [address] Care Team Providers Care Rand Cementer Name Role Phone Raul Dhillon MD Primary Care Provider Reason for Visit * Diagnostic Imaging (Routine) - Closed Specialty Diagnoses / Procedures Referred By Contac t Referred To Contact Procedures Breast Imaging Screening Outside Reference Transcribed Order, Provider Referral ID Status Reason Start Date Expiration Date Visits Re quested Visits Authorized [id number] Closed 06/25/2023 07/24/2024 1 1 Encounter Details Date Type Department Care Team (Late st Contact Info) Description 05/19/2019 Hospital Encounter 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 Gender Identity Not on file Sexual Orientation [...] Never 06/12/2023 6:00 AM Lashay Whitley RN documented as of this encounter Plan of Treatment Not on file documented as of this encounter Procedures Procedure Name Priority Date/Time Associated Diagnosis Comments BREAST IMAGING MG SCREENING OUTSIDE REFERENCE Routine 05/19/2019 12:00 AM METAL SPRAYER PROTECTIVE COATING documented in this encounter Results * Breast Imaging Screening Outside Reference (05/19/2019 12:00 AM METAL SPRAYER PROTECTIVE COATING) Impressions [facility] - 06/25/2023 11:39 AM CDT These images are for Reference purposes only and have not been reviewed by [facility] Radiology. There will be no report generated by a [facility] Radiologist. Narrative [facility] - 06/25/2023 11:39 AM CDT EXAMINATION: Images For Reference Purposes Only us Provider Transcribed Order IMG MAMMO PROCEDURES Final Result [facility] documented in this encounter Visit Diagnoses Not on filedocumented in this encounter Care Teams Rand Cementer Relationship Specialty Start Date End Date Raul Dhillon MD PCP - General Family Medicine 05/12/19 05/10/20 documented as of this encounter
--- OUTSIDE RECORDS SUMMARY | 2024-08-09 14:49 | XMS_ITS | Referral Summary ---
Author Organization [facility] Address [address] [place] [address] Care Team Providers Care Rehabilitation Worker Name Role Phone Melissa Rojas MATERIALS DEVELOPMENT ENGINEER Primary Care Provider [phone] Encounters Date Type Department Care Team Description 07/05/2024 8:51 AM CDT - 07/05/2024 11:59 PM CDT Hospital Encounter [facility] Respiratory [address] [place] [address] Chronic obstructive pulmonary disease, unspecified COPD type (HCC) Discharge Disposition: Discharge to home or self care 07/04/2024 3:27 PM CDT - 07/04/2024 11:59 PM CDT Hospital Encounter [facility] [address] [place] [address] Chronic obstructive pulmonary disease, unspecified COPD type (HCC) Discharge Disposition: Discharge to home or self care from Last 3 Months Allergies Active Allergy Reactions Criticality Noted Date [...] bedtime 01/27/20 23 Active mv,kal,iron,mn/fo lic acid/chol (VUPB-[id number]-HSMXX, PABA, ORAL)Indications: supplement Take 2 tablet/chew tab [...] TIME PER WEEK 12 capsule 1 07/03/19 Active oxyCODONE (ROXICODONE) 5 mg immediate release [...] (12/13/2021): Added automatically from request for surgery [id number] Impingement syndrome of left shoulder 12/13/2021 Overview (12/13/2021): Added automatically from request for surgery [id number] Biceps tendinitis of left upper extremity 2021 Overview (12/13/2021): Added automatically from request for surgery [id number] Tear of left rotator cuff 09/25/2021 Pain in joint of right shoulder 07/24/2021 Primary osteoarthritis of right knee 06/11/2021 Overview (06/11/2021): Added automatically from request for surgery [id number] History of bilateral hip replacements 01/29/2018 Right knee pain 01/29/2018 Tobacco dependence syndrome 01/23/2016 Other specified symptoms and signs involving the circulatory and respiratory systems 01/23/2016 Hypertension 01/23/2016 Asthma 01/23/2016 Localized adiposity 01/21/2012 Anemia 03/10/2011 Immunizations Immunization Administration Dates Next Due Influenza, Quadrivalent, Split, Intramuscular Influenza, Unspecified 01/01/2017 Social History Tobacco Use Types Packs/Day Years [...] on file 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 [employer] [id number] 09/19/2025 AR-2324BC C / / [id number] [employer] Swivelock C 4.75mm 19.1mm Closed Eyelet Vent [place] Suture Ar-2324bcc - [id number] Implanted:Qty: 1 on 10/01/2022 by Kade Rivera MD at [facility] Right: Shoulder [employer] [id number] 05/20/2026 AR-2324BCC / / [id number] [employer] Baseplate Tibial Knee Cemented Right Fixed Stemmed Persona Size E Tivanium [id number] - [id number] Implanted:Qty: 1 on 06/12/2023 by Surinder Garcia MD at [facility] Right: Knee [employer] [id number] 03/07/2033 [id number] / / [id number] [employer] Persona 14mm 30+ Mm Knee Tibia Taper Extension Stem [id number] - [id number] Implanted:Qty: 1 on 06/12/2023 by Surinder Garcia MD at [facility] Right: Knee [employer] [id number] 06/14/2032 [id number] / / [id number] [employer] Persona Cemented Posterior Stabilize Knee Right 8 Standard [id number] - [id number] Implanted:Qty: 1 on 06/12/2023 by Surinder Garcia MD at [facility] Right: Knee [employer] [id number] 08/17/2030 [id number] / / [id number] [employer] Simplex P Full Dose Radiopaque Preblend Cement Bone Tobramycin 6197-9-001 - [id number] Implanted:Qty: 2 on 06/12/2023 by Surinder Garcia MD at [facility] Right: Knee [employer] 08/20/2024 [id number] / / [id number] [employer] Insert Tibial Knee Vitamin E Fixed Rt Persona Allyn E 10mm Size 6 9 E F Polyethylene [id number] - [id number] Implanted:Qty: 1 on 06/12/2023 by Surinder Garcia MD at [facility] Right: Knee [employer] [id number] 09/05/2027 [id number] / / [id number] Procedures Procedure Name Priority Date/Time Associated Diagnosis [...] POST 2.67 L 07/05/2024 9:47 AM CDT [facility] FEV1 POST 1.84 L 07/05/2024 9:47 AM CDT [facility] [id number] 69.01 % 07/05/2024 9:47 AM CDT [facility] VDB11-82% POST 1.18 L/s 07/05/2024 9:47 AM CDT [facility] PEF POST 4.43 L/s 07/05/2024 9:47 AM CDT [facility] DLCOc SB 14.12 ml/(min*mm Hg) 07/05/2024 9:47 AM CDT [facility] DLCO/VA PRE 4.06 ml/(min*mm Hg*L) 07/05/2024 9:47 AM CDT [facility] VA 3.48 L 07/05/2024 9:47 AM CDT [facility] TLC PRE 5.09 L 07/05/2024 9:47 AM CDT [facility] VC PRE 2.39 L 07/05/2024 9:47 AM CDT [facility] IC PRE 2.04 L 07/05/2024 9:47 AM CDT [facility] FRC PL PRE 3.12 L 07/05/2024 9:47 AM CDT [facility] ERV PRE 0.42 L 07/05/2024 9:47 AM CDT [facility] RV PRE 2.69 L 07/05/2024 9:47 AM CDT [facility] RAW PRE 6.57 cmH2O*s/L 07/05/2024 9:47 AM CDT [facility] VTG 3.97 L 07/05/2024 9:47 AM CDT [facility] FVC PRE 2.27 L 07/05/2024 9:47 AM CDT [facility] FEV1 PRE 1.49 L 07/05/2024 9:47 AM CDT [facility] [id number] 65.64 % 07/05/2024 9:47 AM CDT [facility] ICR37-88% PRE 0.84 L/s 07/05/2024 9:47 AM CDT [facility] PEF PRE 3.96 L/s 07/05/2024 9:47 AM CDT [facility] Anatomical Region Laterality Modality PFT 07/05/2024 8:59 [...] correlation. Electronically signed by Ralph Raygoza MD, FCCP Pulmonary and Critical Care Medicine [facility] us Mckayla Alicia MATERIALS DEVELOPMENT ENGINEER PFT ORDERABLES Final Re sult * CT [...] Celestine Villarreal M.D. FRANK T: Report ID: [id number] Reading Location: [place] [address] Procedure Note Keith Villarreal MD - 07/13/2024 [...] Celestine Villarreal M.D. FRANK T: Report ID: [id number] Reading Location: [place] [address] Mckayla Alicia MATERIALS DEVELOPMENT ENGINEER IMG CT PROCEDURES Final Result from Last 3 Months Insurance IDMT [facility] MEDICARE ADVANTAGE [facility] MEDICARE Address: [address] [address] [place] [address] IDPA [facility] MEDICARE ADVANTAGE [facility] MEDICARE Address: [address] [address] [place] [address] [facility] MEDICARE ADVANTAGE [facility] MEDICARE Address: [address] [address] [place] [address] Advance Directives For more information, please contact: [phone] * Full Code (Latest Code Status on File) Date Activated Date Inactivated Comments 06/12/2023 2:14 PM 06/15/2023 4:51 PM Care Teams Rehabilitation Worker Relationship Specialty Start Date End Date Melissa Rojas NP PCP - General Nurse Practitioner 11/13/21
--- OUTSIDE RECORDS SUMMARY | 2024-08-09 14:49 | XMS_ITS ---
Author Organization [facility] [email or web address] Address [address] [facility] [address] [address] Care Team Providers Care Software Analyst Name Role Phone Ameena Negrete Unavailable [phone] REASON FOR VISIT Pt still not feeling well Social History Sex Assigned At : Social History Observation Description Sex Assigned At Female Encounters Encounter Location Date Provider Diagnosis [facility] [employer] [place] [id number] [facility] [address] [address] 08/08/2024 Ameena Negrete Plan Of Treatment Next Appt Details Provider Name:Ameena zelaya, 08/16/2024 01:15:00 PM, [address] [facility] [address], [facility] [address], [place], [address], Progress Notes * ROSEMARY NGUYEN MDOB: [birth year] (59 yo F)Acc No.[id number]:08/08/2024 Patient: ROSEMARY AGARWAL Provider: Eron Negrete :1965 A ge:59 Y S ex:Female Date:08/08/2024 Address:[address] [place], [place] [id number] Subjective: * Chief Complaints: * 1 . Pt still not feeling well. * Medical History: Objective: * Vitals: Assessment: Plan: * Treatment: * Billing Information: * Visit Code: * Procedure Codes: * Electronic signature of Wilson Negrete on 08/09/2024 at 02:49 PM CDT Sign off status: Pending * Provider: Eron Negrete Date: 0 08/08/2024 Generated for Ritu casarez/Flavia/Bibi on: 08/09/2024 02:49 PM CDT
--- OUTSIDE RECORDS SUMMARY | 2024-08-09 14:49 | XMS_ITS | Encounter Summary ---
Author Organization [facility] Healthcare Address [address] [place] [address] Care Team Providers Care Coke Oven Mason Name Role Phone Unavailable Primary Care Provider Unavailabl e Reason for Visit * Diagnostic Imaging (Routine) - Pending Review Specialty Diagnoses / Procedures Referred By Contac t Referred To Contact Procedures Breast Imaging Screening Outside Reference Transcribed Order, Provider Referral ID Status Reason Start Date Expiration Date V isits Requested Visits Authorized [id number] Pending Review 07/20/2023 08/18/2024 1 1 Encounter Details Date Type Department Care Team (Late st Contact Info) Description 11/11/2016 Hospital Encounter [facility] [address] [place] [id number] Social History Tobacco Use Types Packs/Day Years [...] on file 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 Monthly or less 06/12/2023 6:00 AM CDT Lashay Marie RN Q2: How many drinks containing alcohol do you have on a typical day when you are drinking? 1 or 2 06/12/2023 6:00 AM CDT Lashay Marie RN Q3: How often do [...] have not been reviewed by [facility] Radiology. There will be no report generated by a [facility] Radiologist. Narrative [facility] - 07/20/2023 1:53 PM CDT EXAMINATION: Images For Reference Purposes Only us Provider Transcribed Order IMG MAMMO PROCEDURES Final Result [facility] documented in this encounter Visit Diagnoses Not on filedocumented in this encounter
--- OUTSIDE RECORDS SUMMARY | 2024-08-09 14:50 | XMS_ITS | Encounter Summary ---
Author Organization [facility] Address [address] [place] [address] Phone Care Team Providers Care Tow Driver Name Role Phone Melissa Rojas IRON AND STEEL WORK SUPERVISOR Primary Care Provider [phone] Susan Kirkpatrick LOOM REPAIRER Unavailable [phone] Encounter Details Date Type Department Care Team (Late st Contact Info) Description 04/01/2022 Orders Only [facility] Orthopaedic Surgery [address] [facility] 12th [place] [address] [place] [id number] Kade Rivera MD [address] [facility] [address] [place], [place] [id number] Status post orthopedic surgery, follow-up exam (Primary Dx); S/P right rotator cuff repair Social History Tobacco Use Types Packs/Day Years Used Date Smoking Tobacco: Former Cigarettes - 2020 Smokeless Tobacco: Never Comments:quit 1 m ago AUDIT-C Answer Date Recorded Q1: How often do you have a drink containing alc ohol? Monthly or less 12/16/2021 Q2: How many drinks containi ng alcohol do you have on a typical day when you are drinking? 1 or 2 12/16/2021 Q3: How often do you have si x or more drinks on one occasion? 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 Gender Identity Not on file Sexual Orientation Not on file documented as of this encounter Plan of Treatment Not on file documented as of this encounter Visit Diagnoses Diagnosis Status post orthopedic surgery, follow-up exam- Primary S/P right rotator cuff repair documented in this encounter Care Teams Tow Driver Relationship Specialty Start Date End Date Melissa Rojas NP PCP - General Nurse Practitioner 11/13/21 Susan Kirkpatrick LCSW [address] [facility] ([facility]) Mailstop [phone] [place] [address] [employer] Outpatient Sourcing Associate 06/16/23 06/18/23 documented as of this encounter
--- OUTSIDE RECORDS SUMMARY | 2024-08-09 14:50 | XMS_ITS ---
Author Organization [facility] [email or web address] Address [address] [facility] [address] [address] Care Team Providers Care Catcher Filter Tip Name Role Phone Ameena Negrete [phone] REASON FOR VISIT Pt is sick Social History Sex Assigned At : Social History Observation Description Sex Assigned At Female Encounters Encounter Location Date Provider Diagnosis [facility] [employer] [address] [address] 08/01/2024 Ameena Negrete Plan Of Treatment Next Appt Details Provider Name:Ameena zelaya, 08/16/2024 01:15:00 PM, [address] [facility] [address], [place] [address], [place], [address], Progress Notes * ROSEMARY NGUYEN MDOB: [birth year] (59 yo F)Acc No.[id number]:08/01/2024 Patient: ROSEMARY AGARWAL Provider: Eron Negrete :1965 A ge:59 Y S ex:Female Date:08/01/2024 Address:[address] [place], [place] [id number] Subjective: * Chief Complaints: * 1 . Pt is sick. * Medical History: Objective: * Vitals: Assessment: Plan: * Treatment: * Billing Information: * Visit Code: * Procedure Codes: * Electronic signature of Wilson Negrete on 08/09/2024 at 02:50 PM CDT Sign off status: Pending * Provider: Eron Negrete Date: 0 08/01/2024 Generated for Ritu casarez/Flavia/Bibi on: 0 08/09/2024 02:50 PM CDT
--- OUTSIDE RECORDS SUMMARY | 2024-08-09 14:50 | XMS_ITS ---
Author Organization [facility] [employer] Address [address] [facility] [address] [address] Care Team Providers Care Top Lift Trimmer Name Role Phone Ameena Negrete [phone] REASON FOR VISIT PT is sick Social History Sex Assigned At : Social History Observation Description Sex Assigned At Female Encounters Encounter Location Date Provider Diagnosis [facility] [email or web address] [address] [address] 08/03/2024 Ameena Negrete Plan Of Treatment Next Appt Details Provider Name:Ameena zelaya, 08/16/2024 01:15:00 PM, [address] [facility] [address], [facility] [address], [place], [address], Progress Notes * ROSEMARY NGUYEN MDOB: [birth year] (59 yo F)Acc No.[id number]:08/03/2024 Patient: ROSEMARY AGARWAL Provider: Eron Negrete :1965 A ge:59 Y S ex:Female Date:08/03/2024 Address:[address] [place], [place] [id number] Subjective: * Chief Complaints: * 1 . PT is sick. * Medical History: Objective: * Vitals: Assessment: Plan: * Treatment: * Billing Information: * Visit Code: * Procedure Codes: * Electronic signature of Wilson Negrete on 08/09/2024 at 02:50 PM CDT Sign off status: Pending * Provider: Eron Negrete Date: 0 08/03/2024 Generated for Ritu casarez/Flavia/Bibi on: 0 08/09/2024 02:50 PM CDT
--- OUTSIDE RECORDS SUMMARY | 2024-08-09 14:50 | XMS_ITS | Encounter Summary ---
Author Organization [facility] Address [address] [place] [address] Care Team Providers Care Dial Painter Name Role Phone Melissa Rojas COTTON CONVERTER Primary Care Provider [phone] Susan Kirkpatrick AIR POLLUTION ANALYST Unavailable [phone] Encounter Details Date Type Department Care Team (Late st Contact Info) Description 10/04/2022 Documentation [facility] [address] [facility] [address] [place] [address] Telly Herrmann MD [address] [place] [address] Social History Tobacco Use Types Packs/Day Years Used Date Smoking Tobacco: Former Cigarettes 2020 Smokeless Tobacco: Never AUDIT-C Answer Date Recorded [...] on file Legal 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) Mailstop [phone] [place] [address] [employer] Outpatient Windshield Installer 06/16/23 06/18/23 documented as of this encounter
--- OUTSIDE RECORDS SUMMARY | 2024-08-09 14:50 | XMS_ITS | Patient Health Record ---
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 Machine Name Role Phone Ameena Negrete Unavailable [phone] Cee Carrera Unavailable [phone] Migration, Provider Unavailable Unavailable Allergies Allergen (clinical drug ingredient) Drug/Non Drug Allergy documented on EMR Reaction Allergy Type Onset Date Status aspirin Aspirin Unknown Drug Allergy 04/20/2023 Active Reason For Referral No Information Medications Medication SIG (Take, Route, Frequency, Duration) Notes Start Date End Date Status WIXELA INHUB 250 MCG-50 MCG/DOSE POWDER FOR INHALATION *Reorder from [employer] for eRx and Interaction Alerts* 04/20/2023 Active hydroCHLOROthiazide 12.5 MG Oral 04/20/2023 Active hydrOXYzine HCl 25 MG 1 tablet Oral three times a day for 90 days Active Zolpidem Tartrate 10 MG Oral for 30 Days Active Fluticasone Propionate 50 MCG/ACT SHAKE LIQUID AND USE 2 SPRAYS IN EACH NOSTRIL DAILY Nasal for 30 Days Active Atorvastatin Calcium 20 MG TAKE 1 TABLET BY MOUTH IN THE MORNING Oral for 90 Days Active QUEtiapine Fumarate 300 MG 1 tablet at bedtime Oral for 90 days Active Albuterol Sulfate HFA 108 (90 Base) MCG/ACT INHALE 1 PUFF BY MOUTH EVERY 6 HOURS NEEDED Inhalation for 50 Days Active QUEtiapine Fumarate 300 MG 1 tablet at bedtime Oral once nightly for 30 days Active Pantoprazole Sodium 40 MG TAKE 1 TABLET BY MOUTH DAILY Oral for 90 Days Active QUEtiapine Fumarate 100 MG 1 tablet every morning Orally Once a day for 90 days Active oxyCODONE-Acetaminophen 5-325 MG TAKE 1 TABLET BY MOUTH EVERY 6 HOURS NEEDED MUST LAST 30 DAYS Oral for 30 Days Active Sertraline HCl 100 MG 1 tablet every morning Oral Once a day for 30 days Active Immunizations Vaccine Route Administration Date Status Comme nts COVID-19 (SARS-COV-2) vaccin e, unspecified Unknown 04/30/2020 Administered Influenza virus vaccine, quadrivalent (IIV4), split virus, 0.25 mL dosage Unknown 02/20/2018 Administered Moderna Covid-19 Vaccine 1st dose Unknown 04/27/2020 Ad ministered Moderna Covid-19 Vaccine 1st dose Unknown 05/25/2020 Ad ministered Moderna Covid-19 Vaccine 1st dose Unknown 01/25/2021 Ad ministered Social History Tobacco Use: Social History Observation Description Date Details (start date - stop date) Current Smoker NA - NA Sex Assigned At : Social History Observation Description Sex Assigned At Female Household Question Answer Notes Marital status: single Number of adults in household: 1 Tobacco Control (Standard) Question Answer Notes Tobacco use: Current smoker How many cigarettes a day do you smoke? 6-10 Section Notes: Lives alone in [facility], no children, 7 siblings, has been on disability for a long time. Problems Problem Type SNOMED Code ICD Code Onset Dates Problem Status W/U Status Risk Notes Problem Schizoaffective disorder, bipolar type (78913357) Schizoaffective disorder, bipolar type (F25.0) Active confirmed Problem Generalized anxiety disorder (96156314) Generalized anxiety disorder (F41.1) Active confirmed Problem Primary insomnia (6975405) Primary insomnia (F51.01) Active confirmed Problem Tobacco use (241241791) Nicotine use (Z72.0) Active confirmed Problem Essential hypertension (19807584) Benign essential HTN (I10) Active confirmed Vital Signs Heart Rate 87 /min 06/20/2024 Height-cm 172.72 cm 06/20/2024 Blood pressure diastolic 74 mm Hg 06/20/2024 Weight-kg 112.49 kg 06/20/2024 Height 68.00 in 06/20/2024 Blood pressure systolic 108 mm Hg 06/20/2024 Weight 248 lbs 06/20/2024 BMI 37.7 kg/m2 06/20/2024 Encounters Encounter Location Date Provider Diagnosis [facility] [address] [place] [address] 08/10/2023 Provider Migration Schizoaffective disorder, bipolar type F25.0 [place] [address] [place] [address] 08/13/2023 Thena Deandre [facility], [facility] [address] [place] [address] 09/03/2023 Thena Deandre [facility], [facility] [address] [place] [address] 11/04/2023 Thena Deandre [facility], [place] [id number] [place] [address] 11/19/2023 Thena Deandre Schizoaffective disorder, bipolar type F25.0 ; Generalized anxiety disorder F41.1 and Insomnia due to other mental disorder F51.05 [facility] [address] [place] [address] 05/18/2024 Ameena Negrete Schizoaffective disorder, bipolar type F25.0 ; Generalized anxiety disorder F41.1 ; Primary insomnia F51.01 ; Nicotine use Z72.0 and Benign essential HTN I10 [facility] [address] [place] [address] 06/20/2024 Ameena Negrete Generalized anxiety disorder F41.1 ; Schizoaffective disorder, bipolar type F25.0 ; Primary insomnia F51.01 ; Nicotine use Z72.0 ; Benign essential HTN I10 and Encounter for screening for depression Z13.31 [place] [address] [place] [address] 08/10/2023 Provider Migration [place] [address] [place] [address] 08/27/2023 Thena Deandre Schizoaffective disorder, bipolar type F25.0 and Generalized anxiety disorder F41.1 [place] [address] [place] [address] 09/30/2023 Thena Deandre Anxiety F41.9 [facility] [address] [place] [address] 10/13/2023 Thena Deandre Schizoaffective disorder, bipolar type F25.0 [facility] [address] [place] [address] 10/21/2023 Thena Deandre Schizoaffective disorder, bipolar type F25.0 [facility] [address] [place] [address] 11/12/2023 Thena Deandre Schizoaffective disorder, bipolar type F25.0 [facility] [address] [place] [address] 04/25/2024 Thena Deandre Schizoaffective disorder, bipolar type F25.0 [facility] [address] [place] [address] 05/10/2024 Thena Deandre Schizoaffective disorder, bipolar type F25.0 Assessments Encounter Date Diagnosis (ICD Code) Assessment Notes Treatment Notes Treatment Clinical Notes Section Notes 09/30/2023 Anxiety (ICD-10 - F41.9) 10/13/2023 Schizoaffective disorder, bipolar type (ICD-10 - F25.0) 10/21/2023 Schizoaffective disorder, bipolar type (ICD-10 - F25.0) 11/12/2023 Schizoaffective disorder, bipolar type (ICD-10 - F25.0) 11/19/2023 Schizoaffective disorder, bipolar type (ICD-10 - F25.0) 11/19/2023 Generalized anxiety disorder (ICD-10 - F41.1) 04/25/2024 Schizoaffective disorder, bipolar type (ICD-10 - F25.0) 05/10/2024 Schizoaffective disorder, bipolar type (ICD-10 - F25.0) 05/18/2024 Schizoaffective disorder, bipolar type (ICD-10 - F25.0) Anxiety - Ongoing anxiety despite current medications Plan: - Increase duloxetine from 60 mg to 90 mg daily (30 mg in the morning and 60 mg at bedtime) - Reevaluate in 4 weeks Insomnia - Taking zolpidem for sleep, reporting hit or miss effectiveness with 3-4 hours of sleep - Prescribed by PCP Plan: - Monitor sleep quality - Practice good sleep hygiene - Reassess sleep quality in follow up appointments Mood stability - Reports Quetiapine is working well Plan: - Continue quetiapine at current dose (100 mg in the morning and 300 mg at bedtime) - Reevaluate in 4 weeks Chronic pain - Taking duloxetine for anxiety and chronic pain, reporting some benefit Plan: - Increase duloxetine as mentioned above - Reassess pain management in 4 weeks Tobacco use - Continues to smoke half a pack of cigarettes per day Plan: - Encourage smoking cessation - Provide resources for quitting if interested Follow-up in 4 weeks to assess response to increased duloxetine dose and overall well-being 05/18/2024 Generalized anxiety disorder (ICD-10 - F41.1) Anxiety - Ongoing anxiety despite current medications Plan: - Increase duloxetine from 60 mg to 90 mg daily (30 mg in the morning and 60 mg at bedtime) - Reevaluate in 4 weeks Insomnia - Taking zolpidem for sleep, reporting hit or miss effectiveness with 3-4 hours of sleep - Prescribed by PCP Plan: - Monitor sleep quality - Practice good sleep hygiene - Reassess sleep quality in follow up appointments Mood stability - Reports Quetiapine is working well Plan: - Continue quetiapine at current dose (100 mg in the morning and 300 mg at bedtime) - Reevaluate in 4 weeks Chronic pain - Taking duloxetine for anxiety and chronic pain, reporting some benefit Plan: - Increase duloxetine as mentioned above - Reassess pain management in 4 weeks Tobacco use - Continues to smoke half a pack of cigarettes per day Plan: - Encourage smoking cessation - Provide resources for quitting if interested Follow-up in 4 weeks to assess response to increased duloxetine dose and overall well-being 06/20/2024 Schizoaffective disorder, bipolar type (ICD-10 - F25.0) Schizoaffective Disorder Assessment: Patient has a longstanding history of schizoaffective disorder, diagnosed in 2019. The patient has been managed with antipsychotic medications, including Risperdal in the past and currently Quetiapine. The dosage of Quetiapine has been progressively increased over time, suggesting ongoing symptom management challenges. Plan: - Continue Quetiapine 100 mg PO in the morning and 300 mg PO at bedtime - Monitor for efficacy and side effects - Assess need for further dosage adjustments at follow-up appointments Anxiety and Depression Assessment: Patient reports ongoing anxiety and depression symptoms, with anxiety being more prominent. Current treatment includes duloxetine (Cymbalta), which was recently increased but has not shown significant improvement since imtiation. Patient is also using hydroxyzine three times daily for anxiety management. There is a history of mood swings and irritability. Plan: - Discontinue duloxetine (Cymbalta) gradually over 4 weeks - Start sertraline (Zoloft) and titrate up over 4 weeks: Week 1: Start 25 mg Week 2: Increase to 50 mg Week 3: Increase to 75 mg Week 4: Increase to 100 mg - Continue hydroxyzine as prescribed for anxiety - Informed patient about potential for mild mood fluctuations during medication transition Insomnia Assessment: Patient continues to experience sleep disturbances, including difficulty maintaining sleep. Currently using quetiapine at bedtime and Ambien (prescribed by primary care physician). Patient reports waking up a couple of hours after falling asleep but is generally able to fall back asleep. There is a history of sleep apnea, but patient is not currently using CPAP. Plan: - Continue quetiapine at bedtime - Continue Ambien as prescribed by primary care physician - Suggested use of hydroxyzine at night if patient wakes up and has difficulty falling back asleep - Encourage resumption of CPAP use for sleep apnea managemen Substance Use Assessment: Patient reports being a daily cannabis smoker and has a history of smoking approximately 1/4 pack of cigarettes per day since age 43. She also reports heavy caffeine intake. These substances may impact her psychiatric symptoms and sleep quality. Plan: - Educate patient on potential impacts of cannabis, nicotine, and caffeine on psychiatric symptoms and sleep - Encourage reduction or cessation of substance use - Offer resources for smoking cessation if patient expresses interest Chronic Pain Assessment: Patient has a history of chronic pain, doesn't feel duloxetine has made a significant difference Plan: - Assess pain levels after stopping dulxoetine - Follow up in 4-6 weeks to assess response to medication change and consider further dose adjustments if needed 06/20/2024 Generalized anxiety disorder (ICD-10 - F41.1) Schizoaffective Disorder Assessment: Patient has a longstanding history of schizoaffective disorder, diagnosed in 2019. The patient has been managed with antipsychotic medications, including Risperdal in the past and currently Quetiapine. The dosage of Quetiapine has been progressively increased over time, suggesting ongoing symptom management challenges. Plan: - Continue Quetiapine 100 mg PO in the morning and 300 mg PO at bedtime - Monitor for efficacy and side effects - Assess need for further dosage adjustments at follow-up appointments Anxiety and Depression Assessment: Patient reports ongoing anxiety and depression symptoms, with anxiety being more prominent. Current treatment includes duloxetine (Cymbalta), which was recently increased but has not shown significant improvement since imtiation. Patient is also using hydroxyzine three times daily for anxiety management. There is a history of mood swings and irritability. Plan: - Discontinue duloxetine (Cymbalta) gradually over 4 weeks - Start sertraline (Zoloft) and titrate up over 4 weeks: Week 1: Start 25 mg Week 2: Increase to 50 mg Week 3: Increase to 75 mg Week 4: Increase to 100 mg - Continue hydroxyzine as prescribed for anxiety - Informed patient about potential for mild mood fluctuations during medication transition Insomnia Assessment: Patient continues to experience sleep disturbances, including difficulty maintaining sleep. Currently using quetiapine at bedtime and Ambien (prescribed by primary care physician). Patient reports waking up a couple of hours after falling asleep but is generally able to fall back asleep. There is a history of sleep apnea, but patient is not currently using CPAP. Plan: - Continue quetiapine at bedtime - Continue Ambien as prescribed by primary care physician - Suggested use of hydroxyzine at night if patient wakes up and has difficulty falling back asleep - Encourage resumption of CPAP use for sleep apnea managemen Substance Use Assessment: Patient reports being a daily cannabis smoker and has a history of smoking approximately 1/4 pack of cigarettes per day since age 43. She also reports heavy caffeine intake. These substances may impact her psychiatric symptoms and sleep quality. Plan: - Educate patient on potential impacts of cannabis, nicotine, and caffeine on psychiatric symptoms and sleep - Encourage reduction or cessation of substance use - Offer resources for smoking cessation if patient expresses interest Chronic Pain Assessment: Patient has a history of chronic pain, doesn't feel duloxetine has made a significant difference Plan: - Assess pain levels after stopping dulxoetine - Follow up in 4-6 weeks to assess response to medication change and consider further dose adjustments if needed 08/10/2023 Schizoaffective disorder, bipolar type (ICD-10 - F25.0) 08/27/2023 Schizoaffective disorder, bipolar type (ICD-10 - F25.0) 08/27/2023 Generalized anxiety disorder (ICD-10 - F41.1) 06/20/2024 Primary insomnia (ICD-10 - F51.01) Schizoaffective Disorder Assessment: Patient has a longstanding history of schizoaffective disorder, diagnosed in 2019. The patient has been managed with antipsychotic medications, including Risperdal in the past and currently Quetiapine. The dosage of Quetiapine has been progressively increased over time, suggesting ongoing symptom management challenges. Plan: - Continue Quetiapine 100 mg PO in the morning and 300 mg PO at bedtime - Monitor for efficacy and side effects - Assess need for further dosage adjustments at follow-up appointments Anxiety and Depression Assessment: Patient reports ongoing anxiety and depression symptoms, with anxiety being more prominent. Current treatment includes duloxetine (Cymbalta), which was recently increased but has not shown significant improvement since imtiation. Patient is also using hydroxyzine three times daily for anxiety management. There is a history of mood swings and irritability. Plan: - Discontinue duloxetine (Cymbalta) gradually over 4 weeks - Start sertraline (Zoloft) and titrate up over 4 weeks: Week 1: Start 25 mg Week 2: Increase to 50 mg Week 3: Increase to 75 mg Week 4: Increase to 100 mg - Continue hydroxyzine as prescribed for anxiety - Informed patient about potential for mild mood fluctuations during medication transition Insomnia Assessment: Patient continues to experience sleep disturbances, including difficulty maintaining sleep. Currently using quetiapine at bedtime and Ambien (prescribed by primary care physician). Patient reports waking up a couple of hours after falling asleep but is generally able to fall back asleep. There is a history of sleep apnea, but patient is not currently using CPAP. Plan: - Continue quetiapine at bedtime - Continue Ambien as prescribed by primary care physician - Suggested use of hydroxyzine at night if patient wakes up and has difficulty falling back asleep - Encourage resumption of CPAP use for sleep apnea managemen Substance Use Assessment: Patient reports being a daily cannabis smoker and has a history of smoking approximately 1/4 pack of cigarettes per day since age 43. She also reports heavy caffeine intake. These substances may impact her psychiatric symptoms and sleep quality. Plan: - Educate patient on potential impacts of cannabis, nicotine, and caffeine on psychiatric symptoms and sleep - Encourage reduction or cessation of substance use - Offer resources for smoking cessation if patient expresses interest Chronic Pain Assessment: Patient has a history of chronic pain, doesn't feel duloxetine has made a significant difference Plan: - Assess pain levels after stopping dulxoetine - Follow up in 4-6 weeks to assess response to medication change and consider further dose adjustments if needed 05/18/2024 Primary insomnia (ICD-10 - F51.01) Anxiety - Ongoing anxiety despite current medications Plan: - Increase duloxetine from 60 mg to 90 mg daily (30 mg in the morning and 60 mg at bedtime) - Reevaluate in 4 weeks Insomnia - Taking zolpidem for sleep, reporting hit or miss effectiveness with 3-4 hours of sleep - Prescribed by PCP Plan: - Monitor sleep quality - Practice good sleep hygiene - Reassess sleep quality in follow up appointments Mood stability - Reports Quetiapine is working well Plan: - Continue quetiapine at current dose (100 mg in the morning and 300 mg at bedtime) - Reevaluate in 4 weeks Chronic pain - Taking duloxetine for anxiety and chronic pain, reporting some benefit Plan: - Increase duloxetine as mentioned above - Reassess pain management in 4 weeks Tobacco use - Continues to smoke half a pack of cigarettes per day Plan: - Encourage smoking cessation - Provide resources for quitting if interested Follow-up in 4 weeks to assess response to increased duloxetine dose and overall well-being 11/19/2023 Insomnia due to other mental disorder (ICD-10 - F51.05) 05/18/2024 Nicotine use (ICD-10 - Z72.0) Anxiety - Ongoing anxiety despite current medications Plan: - Increase duloxetine from 60 mg to 90 mg daily (30 mg in the morning and 60 mg at bedtime) - Reevaluate in 4 weeks Insomnia - Taking zolpidem for sleep, reporting hit or miss effectiveness with 3-4 hours of sleep - Prescribed by PCP Plan: - Monitor sleep quality - Practice good sleep hygiene - Reassess sleep quality in follow up appointments Mood stability - Reports Quetiapine is working well Plan: - Continue quetiapine at current dose (100 mg in the morning and 300 mg at bedtime) - Reevaluate in 4 weeks Chronic pain - Taking duloxetine for anxiety and chronic pain, reporting some benefit Plan: - Increase duloxetine as mentioned above - Reassess pain management in 4 weeks Tobacco use - Continues to smoke half a pack of cigarettes per day Plan: - Encourage smoking cessation - Provide resources for quitting if interested Follow-up in 4 weeks to assess response to increased duloxetine dose and overall well-being 06/20/2024 Nicotine use (ICD-10 - Z72.0) Schizoaffective Disorder Assessment: Patient has a longstanding history of schizoaffective disorder, diagnosed in 2019. The patient has been managed with antipsychotic medications, including Risperdal in the past and currently Quetiapine. The dosage of Quetiapine has been progressively increased over time, suggesting ongoing symptom management challenges. Plan: - Continue Quetiapine 100 mg PO in the morning and 300 mg PO at bedtime - Monitor for efficacy and side effects - Assess need for further dosage adjustments at follow-up appointments Anxiety and Depression Assessment: Patient reports ongoing anxiety and depression symptoms, with anxiety being more prominent. Current treatment includes duloxetine (Cymbalta), which was recently increased but has not shown significant improvement since imtiation. Patient is also using hydroxyzine three times daily for anxiety management. There is a history of mood swings and irritability. Plan: - Discontinue duloxetine (Cymbalta) gradually over 4 weeks - Start sertraline (Zoloft) and titrate up over 4 weeks: Week 1: Start 25 mg Week 2: Increase to 50 mg Week 3: Increase to 75 mg Week 4: Increase to 100 mg - Continue hydroxyzine as prescribed for anxiety - Informed patient about potential for mild mood fluctuations during medication transition Insomnia Assessment: Patient continues to experience sleep disturbances, including difficulty maintaining sleep. Currently using quetiapine at bedtime and Ambien (prescribed by primary care physician). Patient reports waking up a couple of hours after falling asleep but is generally able to fall back asleep. There is a history of sleep apnea, but patient is not currently using CPAP. Plan: - Continue quetiapine at bedtime - Continue Ambien as prescribed by primary care physician - Suggested use of hydroxyzine at night if patient wakes up and has difficulty falling back asleep - Encourage resumption of CPAP use for sleep apnea managemen Substance Use Assessment: Patient reports being a daily cannabis smoker and has a history of smoking approximately 1/4 pack of cigarettes per day since age 43. She also reports heavy caffeine intake. These substances may impact her psychiatric symptoms and sleep quality. Plan: - Educate patient on potential impacts of cannabis, nicotine, and caffeine on psychiatric symptoms and sleep - Encourage reduction or cessation of substance use - Offer resources for smoking cessation if patient expresses interest Chronic Pain Assessment: Patient has a history of chronic pain, doesn't feel duloxetine has made a significant difference Plan: - Assess pain levels after stopping dulxoetine - Follow up in 4-6 weeks to assess response to medication change and consider further dose adjustments if needed 06/20/2024 Benign essential HTN (ICD-10 - I10) Schizoaffective Disorder Assessment: Patient has a longstanding history of schizoaffective disorder, diagnosed in 2019. The patient has been managed with antipsychotic medications, including Risperdal in the past and currently Quetiapine. The dosage of Quetiapine has been progressively increased over time, suggesting ongoing symptom management challenges. Plan: - Continue Quetiapine 100 mg PO in the morning and 300 mg PO at bedtime - Monitor for efficacy and side effects - Assess need for further dosage adjustments at follow-up appointments Anxiety and Depression Assessment: Patient reports ongoing anxiety and depression symptoms, with anxiety being more prominent. Current treatment includes duloxetine (Cymbalta), which was recently increased but has not shown significant improvement since imtiation. Patient is also using hydroxyzine three times daily for anxiety management. There is a history of mood swings and irritability. Plan: - Discontinue duloxetine (Cymbalta) gradually over 4 weeks - Start sertraline (Zoloft) and titrate up over 4 weeks: Week 1: Start 25 mg Week 2: Increase to 50 mg Week 3: Increase to 75 mg Week 4: Increase to 100 mg - Continue hydroxyzine as prescribed for anxiety - Informed patient about potential for mild mood fluctuations during medication transition Insomnia Assessment: Patient continues to experience sleep disturbances, including difficulty maintaining sleep. Currently using quetiapine at bedtime and Ambien (prescribed by primary care physician). Patient reports waking up a couple of hours after falling asleep but is generally able to fall back asleep. There is a history of sleep apnea, but patient is not currently using CPAP. Plan: - Continue quetiapine at bedtime - Continue Ambien as prescribed by primary care physician - Suggested use of hydroxyzine at night if patient wakes up and has difficulty falling back asleep - Encourage resumption of CPAP use for sleep apnea managemen Substance Use Assessment: Patient reports being a daily cannabis smoker and has a history of smoking approximately 1/4 pack of cigarettes per day since age 43. She also reports heavy caffeine intake. These substances may impact her psychiatric symptoms and sleep quality. Plan: - Educate patient on potential impacts of cannabis, nicotine, and caffeine on psychiatric symptoms and sleep - Encourage reduction or cessation of substance use - Offer resources for smoking cessation if patient expresses interest Chronic Pain Assessment: Patient has a history of chronic pain, doesn't feel duloxetine has made a significant difference Plan: - Assess pain levels after stopping dulxoetine - Follow up in 4-6 weeks to assess response to medication change and consider further dose adjustments if needed 05/18/2024 Benign essential HTN (ICD-10 - I10) Anxiety - Ongoing anxiety despite current medications Plan: - Increase duloxetine from 60 mg to 90 mg daily (30 mg in the morning and 60 mg at bedtime) - Reevaluate in 4 weeks Insomnia - Taking zolpidem for sleep, reporting hit or miss effectiveness with 3-4 hours of sleep - Prescribed by PCP Plan: - Monitor sleep quality - Practice good sleep hygiene - Reassess sleep quality in follow up appointments Mood stability - Reports Quetiapine is working well Plan: - Continue quetiapine at current dose (100 mg in the morning and 300 mg at bedtime) - Reevaluate in 4 weeks Chronic pain - Taking duloxetine for anxiety and chronic pain, reporting some benefit Plan: - Increase duloxetine as mentioned above - Reassess pain management in 4 weeks Tobacco use - Continues to smoke half a pack of cigarettes per day Plan: - Encourage smoking cessation - Provide resources for quitting if interested Follow-up in 4 weeks to assess response to increased duloxetine dose and overall well-being 06/20/2024 Encounter for screening for depression (ICD-10 - Z13.31) Schizoaffective Disorder Assessment: Patient has a longstanding history of schizoaffective disorder, diagnosed in 2019. The patient has been managed with antipsychotic medications, including Risperdal in the past and currently Quetiapine. The dosage of Quetiapine has been progressively increased over time, suggesting ongoing symptom management challenges. Plan: - Continue Quetiapine 100 mg PO in the morning and 300 mg PO at bedtime - Monitor for efficacy and side effects - Assess need for further dosage adjustments at follow-up appointments Anxiety and Depression Assessment: Patient reports ongoing anxiety and depression symptoms, with anxiety being more prominent. Current treatment includes duloxetine (Cymbalta), which was recently increased but has not shown significant improvement since imtiation. Patient is also using hydroxyzine three times daily for anxiety management. There is a history of mood swings and irritability. Plan: - Discontinue duloxetine (Cymbalta) gradually over 4 weeks - Start sertraline (Zoloft) and titrate up over 4 weeks: Week 1: Start 25 mg Week 2: Increase to 50 mg Week 3: Increase to 75 mg Week 4: Increase to 100 mg - Continue hydroxyzine as prescribed for anxiety - Informed patient about potential for mild mood fluctuations during medication transition Insomnia Assessment: Patient continues to experience sleep disturbances, including difficulty maintaining sleep. Currently using quetiapine at bedtime and Ambien (prescribed by primary care physician). Patient reports waking up a couple of hours after falling asleep but is generally able to fall back asleep. There is a history of sleep apnea, but patient is not currently using CPAP. Plan: - Continue quetiapine at bedtime - Continue Ambien as prescribed by primary care physician - Suggested use of hydroxyzine at night if patient wakes up and has difficulty falling back asleep - Encourage resumption of CPAP use for sleep apnea managemen Substance Use Assessment: Patient reports being a daily cannabis smoker and has a history of smoking approximately 1/4 pack of cigarettes per day since age 43. She also reports heavy caffeine intake. These substances may impact her psychiatric symptoms and sleep quality. Plan: - Educate patient on potential impacts of cannabis, nicotine, and caffeine on psychiatric symptoms and sleep - Encourage reduction or cessation of substance use - Offer resources for smoking cessation if patient expresses interest Chronic Pain Assessment: Patient has a history of chronic pain, doesn't feel duloxetine has made a significant difference Plan: - Assess pain levels after stopping dulxoetine - Follow up in 4-6 weeks to assess response to medication change and consider further dose adjustments if needed Plan Of Treatment Next Appt Details Provider Name:Ameena zelaya, 08/16/2024 01:15:00 PM, [address] [address], [facility] [address], [place], [address], Insurance Providers Payer Name Payer Address Payer Phone Subscriber Number Group Number Insured Name Patient Relationship to Insured Coverage Start Date Coverage End Date [employer] Medicare Replacement/A dvantage - Ppo [address] [address] [place] [address] [id number] ROSEMARY NGUYEN Self - patient is the insured [facility] [place] Medicaid Replacement - Hmo [address] [place] [address] [id number] ROSEMARY NGUYEN Self - patient is the insured Medical (General) History Medical History History ICD Code Problems: Generalized anxiety disorder Schizoaffective disorder bipolar type Primary insomnia Morbid obesity E66.01 Hypertension I10 Asthma J45.909 Tobacco dependence syndrome F17.200 Anemia D64.9 History of bilateral hip replacements Z9 6.643 Osteoarthritis M19.90 Surgical History Surgery Date(Month/Year) Subdural hematoma (95352) Breast surgery () Removal of gallbladder (85037) Right knee replacement 05/2023 Left hip replacement 2014 Right hip replacement 2018 gastric bypass surgery 2006 Hospitalization History Reason Date(Month/Year) surgical stays
--- OUTSIDE RECORDS SUMMARY | 2024-08-09 14:50 | XMS_ITS | Data Portability ---
Author Organization [place] - [facility], Main Office Address [address] [place] [address] Assessment Encounter Date Assessment Date Assessment LastModified by Organization Details LastModified Time 05/21/2022 05/21/2022 56-year-old female presenting for follow-up of her right knee. Today she will receive a gel injection. She is still working with physical therapy. She is also working on weight loss. Antalgic gait. Tenderness palpation over the medial joint line. Range of motion 0-120. She received the Synvisc One injection into the right knee without issue. We can see her back as needed for pain. With regards to knee replacement, we discussed that she would need to stop smoking. She has cut back, but has not completely quit yet. She will also need to work on weight loss, which she will follow-up with her primary care doctor for that. [email or web address] Not available 05/28/2022 18:56:43 08/13/2022 08/13/2022 57-year-old female presenting for follow-up of her right knee arthritis. We have been managing her conservatively with both cortisone and gel injections. She received Gel injection at her last visit, but this did not give her significant relief, and she reports in fact made her pain worse. She rates as 5/10. She has still been doing physical therapy and has a few visits left. She has also been using ice and heat. She has lost a fair amount of weight recently, and has continued to work on that. She is still smoking, although she has cut back. Mildly antalgic gait favoring the right side, no assistive devices. She has medial and lateral joint line tenderness as well as positive patellar grind. Range of motion 0-120. Stable ligaments. Given her failure of conservative management including activity modification, weight loss, cortisone and gel injections, I recommend that she see a joint replacement specialist. I discussed with her that she would need to stop smoking, and continue to work on weight loss prior to surgery. In the meantime, she should continue staying active and doing her exercises. She may follow-up with us as needed, after she consults with Dr. West. [email or web address] Not available 08/13/2022 17:52:22 08/21/2022 08/21/2022 patient has xabx-se-dnbi arthritis both knees. Unfortunately she is morbidly obese and has lymphedema in her legs. This makes her very high risk surgical candidate. She has failed conservative treatment today is miserable and has a hard time getting around. She has lost 37 lb which is great unfortunately she has a lot of swelling in her legs which is concerning. I told her this puts her at higher risk for infection. She is going to talk to her primary care physician about of the lymphedema what else can be done for she is already on Lasix. She will continue to lose weight. We will try a course of hyaluronic acid for the arthritis and see if this buys her some time in the meantime discussed. [email or web address] Not available 08/21/2022 12:16:44 09/18/2022 09/18/2022 Patient returns knee pain right. She has an arthritic right knee and would benefit from knee replacement surgery. However were hampered by the fact she is morbidly obese and also has lymphedema in her legs. She needs to address these issues 1st before consideration of surgery is done. She wanted to get hyaluronic acid but apparently had with an injection July 21. I told her I can reinject the knee with cortisone we did this with 20 mg Kenalog 4 cc 1% lidocaine. She will continue with weight loss in the interim and also anti-inflammatory medication as needed. I will see her back on an as-needed basis discussed. [email or web address] Not available 09/18/2022 12:43:24 01/16/2023 01/16/2023 By previous x-ra y exam the patient is noted have advanced primary osteoarthritis right knee joint. She has achieved significant weight loss she would like to be referred to see Dr. West as she knows him well for consideration of total knee arthroplasty. We will get her set up for this. In the meantime under sterile conditions she wanted a shot of cortisone therefore I injected the patient's right knee joint in the office with 4 cc 0.5% bupivacaine and 20 mg of Kenalog. Patient tolerated the procedure well. We will see her back as needed she will see Dr. West in the near future for surgical consideration she voiced understanding agrees above plan she will call for any further problems difficulties or questions. [email or web address] Not available 01/16/2023 15:06:58 Plan of Treatment Reminders Order Date Submit Date Provider Last Modified By Organization Details Last Modified Time Details Appointments None recorded. Lab None recorded. Referral None recorded. Procedures injection/a spiration joint/bursa (PROC) 2022 023 [email or web address] In-Office Order, Internal Use Only DO Not Attach Compendium DO Not Attach Compendium, Do Not Delete/merge, [id number] 14:13:53 injection/a spiration joint/bursa (PROC) - in office procedure, administere d by provider 2022 023 [email or web address] In-Office Order, Internal Use Only DO Not Attach Compendium DO Not Attach Compendium, Do Not Delete/merge, [id number] 11:30:47 knee aspiration/ injection (PROC) 2022 023 [email or web address] Not available 09:56:39 Surgeries None recorded. Imaging None recorded. Medication Orders bupivacaine HCl 0.5 % (5 mg/mL) injection solution 2022 023 [email or web address] [id number], [address], [id number], 15:50:54 Kenalog 10 mg/mL suspension for injection 2022 023 [email or web address] [facility] #[id number], [address], [id number], 15:50:54 Kenalog 10 mg/mL suspension for injection 2022 023 [email or web address] [facility] #[id number] [place], [place], [id number], 3 12:22:02 ropivacaine (PF) 5 mg/mL (0.5 %) injection solution 2022 023 [email or web address] [facility][id number] [place], [place], [id number], 3 12:22:02 Synvisc-One 48 mg/6 mL intra-artic ular syringe 2022 023 [email or web address] [facility] #[id number] [place], [place], [id number], 11:37:41 Patient TargetsNo targets recorded. Patient Instructions Encounter Date Encounter Id Patient Instructions Last Modified By Organization Details Last Modified Time 08/21/2022 [id number] viscosupplementa tion treatment* Not available 09/19/2022 10:09:51 Reason for Referral None Reported. Problems Name Problem SNOMED Code Status Onset Date Resolution Date Notes Provider Name and Address Organization Details Recorded Time Increased frequency of urination 790838074 Active Kyleigh Chata, QHC null, [place] [facility] 3 09:08:58 Menopause symptoms present Active Kyleigh Chata, QHC null[place] [facility] 3 09:08:58 Localized, primary osteoarthri tis of the pelvic region and thigh 538199100 Active Kyleigh Victoria, QHC null, [place] [facility] 3 09:08:58 Osteoarthri tis of hip 373104768 Active Kyleigh Victoria, QHC null, [place] [facility] 3 09:08:58 Shoulder joint pain 660808188 Active Kyleigh Chata, QHC null, [place] [facility] 3 09:08:58 Left lower quadrant pain 873401899 Active Kyleigh Victoria, QHC null, [place] [facility] 3 09:08:58 Pain in pelvis 78293480 Active Kyleigh Chata, QHC null, [place] [facility] 3 09:08:58 Knee pain Active Kyleigh Victoria, QHC null, [place] [facility] 3 09:08:58 Sprain of metacarpoph alangeal joint 76765446 Active Kyleigh Victoria, QHC null, [place] [facility] 3 09:08:58 Menorrhagia 097638477 Active Kyleigh Victoria, QHC null, [place] [facility] 3 09:08:58 Osteoarthri tis 201823756 Active Kyleigh Victoria, QHC null, [place] [facility] 3 09:08:58 Pain of hip region 39633611 Active Kyleigh Chata, QHC null, [place] [facility] 3 09:08:58 Irregular periods 98242936 Active Kyleigh Chata, QHC null, [place] [facility] 3 09:08:58 Sprain of hand 29918523 Active Kyleigh Victoria, QHC null, [place] [facility] 3 09:08:58 Rupture of rotator cuff of left shoulder 5687894189572 9102 Active 2021 Kyleigh Victoria, QHC null, [place] [facility] 3 09:08:58 Pain of left shoulder joint 8713355370624 9109 Active 2021 Kyleigh Chata, QHC null, [place] [facility] 3 09:08:58 Pain of right shoulder joint 1831907663022 9100 Active 2021 Kyleigh Chata, QHC null, [place] [facility] 3 09:08:58 Partial thickness rotator cuff tear 068069271 Active 2021 Kyleigh Victoria, QHC null, [place] [facility] 3 09:08:58 Pain of right knee joint 0595967483331 00 Active 2022 Kyleigh Brizuela, Q null, [place] [facility] 3 09:08:58 Osteoarthri tis of right knee joint 6924586347373 00 Active 2022 Anjali Cordero NP [address], [place], [address], [facility] 3 09:03:30 Bilateral osteoarthri tis of knees 8869055823479 07 Active 2022 Garrison West MD [address], [place], [address], [employer] 3 12:15:38 Morbid obesity 688637019 Active 2022 Garrison West MD [address], [place], [address], [facility] 3 12:15:46 Problem Notes None recorded. Procedures Surgical History Date Name Laterality Status Provider Name and Address Organization Details Recorded Time 3 Ortho - Cortisone Injection completed Garrison West MD [address], [place], [address], [employer] 09/18/2022 12:42:32 3 Synvisc Injection completed Anjali Cordero NP [address], [place], [address], [facility] 05/28/2022 18:56:28 Gastric Bypass completed Not Available [facility] 05/21/2022 10:41:20 Imaging Results None recorded. Procedure Notes None recorded. Medical Equipment None Reported. Allergies Allergen ID Allergen Name Allergen Category Reaction Reaction Severity Criticality Documentation Date Start Date Code Code System Note Provider Name and Address Organization Details Recorded Time shrimp allergeni c extract food Not available Not available Not available 05/21/2022 45131 2 RxNorm Kyleigh Brizuela, QHC null, [facility] 3 09:09:02 23494 latex environme nt,medica tion Not available Not available Not available 05/21/2022 26095 91 RxNorm Kyleigh Victoria, QHC null, [facility] 3 09:09:02 95469 ibuprofen medicatio n vomiting moderate Not available 05/21/2022 5640 RxNorm Kyleigh Victoria, QHC null, [facility] 3 09:09:02 46239 aspirin medicatio n vomiting moderate Not available 05/21/2022 1191 RxNorm Kyleigh Victoria, QHC null, [facility] 3 09:09:02 33388 ibuprofen medicatio n Not available Not available Not available 05/21/2022 5640 RxNorm Not Available [facility] 3 10:43:40 50002 aspirin medicatio n Not available Not available Not available 05/21/2022 1191 RxNorm Not Available [facility] 3 10:43:40 Medications Name Sig Start Date Stop Date Status Note LastModified by Organization Details LastModified Time celecoxib 200 mg capsule TK 2 CS PO THE MORNING BEFORE SURGERY THEN 1 C BID TAT 06/05 completed Not Available Not Available Not Available cyclobenzap rine 10 mg tablet TAKE 1 TABLET BY MOUTH EVERY 8 HOURS active Not Available Not Available No t Available amoxicillin 500 mg capsule TK 1 T PO Q 8 H 12/14 completed Not Available Not Available Not Available furosemide 40 mg tablet 06/05 completed Not Available Not Available Not Available doxycycline hyclate 100 mg capsule active Not Available Not Available N ot Available ipratropium 0.5 mg-albutero l 3 mg (2.5 mg base)/3 mL nebulizatio n soln VVN QID PRF SOB OR COUGH active Not Available Not Available No t Available quetiapine 300 mg tablet TAKE 1 TABLET BY MOUTH EVERY DAY AT BEDTIME active Not Available Not Available No t Available cetirizine 10 mg tablet TK 1 T PO QD 06/05 completed Not Available Not Available Not Available azithromyci n 250 mg tablet TK 2 TS PO AT ONCE TODAY THEN TK 1 T PO ONCE D FOR 4 DAYS 08/21 completed Not Available Not Available Not Available Lidocaine Viscous 2 % mucosal solution RINSE AND GARGLE 5 ML BY MOUTH EVERY 6 HOURS FOR 10 DAYS NEEDED 08/21 completed Not Available Not Available Not Available Cytotec 200 mcg tablet Take 2 tablets by oral route at bedtime for 1 day. 08/09 completed Not Available Not Available Not Available hydrocodone 5 mg-acetamin ophen 325 mg tablet TAKE 1 TABLET BY MOUTH TWICE DAILY NEEDED 07/24 completed Not Available Not Available Not Available bupivacaine HCl 0.5 % (5 mg/mL) injection solution Take 20 mg by injection route. 2022 active Not Available Not Available Not Avai lable prednisone 20 mg tablet TK 3 TS PO ONCE DAILY FOR 5 DAYS 06/05 completed Not Available Not Available Not Available clonazepam 0.5 mg tablet TK 1 T PO BID 06/05 completed Not Available Not Available Not Available quetiapine 200 mg tablet TAKE 1 TABLET BY MOUTH EVERY DAY AT BEDTIME 09/25 completed Not Available Not Available Not Available acetaminoph en 300 mg-codeine 30 mg tablet TAKE 2 TABLETS BY MOUTH EVERY 6 HOURS NEEDED FOR 14 DAYS 08/21 completed Not Available Not Available Not Available acyclovir 400 mg tablet TAKE 1 TABLET BY MOUTH EVERY 8 HOURS FOR 5 DAYS 08/21 completed Not Available Not Available Not Available ciprofloxac in 500 mg tablet TK 1 T PO Q 12 H 06/05 completed Not Available Not Available Not Available sulfamethox azole 800 mg-trimetho prim 160 mg tablet TAKE 1 TABLET BY MOUTH EVERY 12 HOURS 08/21 completed Not Available Not Available Not Available hydrocodone 10 mg-acetamin ophen 325 mg tablet TK 1 T PO Q 6 TO 8 H PRN P 06/05 completed Not Available Not Available Not Available doxycycline monohydrate 100 mg tablet TK 1 T PO BID 06/05 completed Not Available Not Available Not Available quetiapine 100 mg tablet TK 1 T PO QD HS 08/21 completed Not Available Not Available Not Available acyclovir 800 mg tablet 08/21 completed Not Available Not Available Not Available levothyroxi ne 25 mcg tablet TAKE 1 TABLET BY MOUTH EVERY DAY 08/21 completed Not Available Not Available Not Available oxycodone-a cetaminophe n 5 mg-325 mg tablet TAKE 1 TABLET BY MOUTH EVERY 6 HOURS FOR 20 DAYS NEEDED active Not Available Not Available No t Available alprazolam 0.5 mg tablet TK 1 T PO TID 06/05 completed Not Available Not Available Not Available amoxicillin 875 mg tablet TAKE 1 TABLET BY MOUTH TWICE DAILY 07/24 completed Not Available Not Available Not Available trazodone 100 mg tablet TK 1 T PO ATN 06/05 completed Not Available Not Available Not Available Kenalog 10 mg/mL suspension for injection Take 20 mg by injection route. 2022 active [facility]: [phone]- 20 Not Available Not Available Not Available amitriptyli ne 10 mg tablet TK 1 T PO QPM 06/05 completed Not Available Not Available Not Available Cartia XT 120 mg capsule,ext ended release TK 1 C PO QD 06/05 completed Not Available Not Available Not Available hydrocodone 7.5 mg-acetamin ophen 325 mg tablet TAKE 1 TABLET BY MOUTH THREE TIMES DAILY NEEDED 07/24 completed Not Available Not Available Not Available cephalexin 500 mg capsule TK 1 C Q 8 H FOR 7 DAYS 06/05 completed Not Available Not Available Not Available pantoprazol e 40 mg tablet,aleksandar yed release TAKE 1 TABLET BY MOUTH EVERY DAY BEFORE A MEAL active Not Available Not Available No t Available hydrocodone 7.5 mg-acetamin ophen 750 mg tablet active Not Available Not Available No t Available warfarin 2 mg tablet 06/05 completed Not Available Not Available Not Available nicotine 21 mg/24 hr daily transdermal patch APPLY 1 PATCH TO SKIN QD active Not Available Not Available No t Available hydrochloro thiazide 12.5 mg capsule active Not Available Not Available Not Available buspirone 7.5 mg tablet TK 1 T PO ONCE A DAY 06/05 completed Not Available Not Available Not Available Banophen 25 mg capsule TK 2 CS PO 20-30 MINUTES BEFORE BED IF NEEDED 12/14 completed Not Available Not Available Not Available diclofenac sodium 75 mg tablet,aleksandar yed release TAKE 1 TABLET BY MOUTH TWICE DAILY WITH FOOD 08/21 completed Not Available Not Available Not Available hydroxyzine HCl 25 mg tablet TAKE 1 TABLET BY MOUTH THREE TIMES DAILY NEEDED active Not Available Not Available No t Available mupirocin 2 % topical ointment APPLY TO EACH NOSTRIL WITH A COTTON SWAB BID FOR 5 DAYS BEFORE SURGERY 06/05 completed Not Available Not Available Not Available zolpidem 5 mg tablet TK 1 T PO QD HS 08/21 completed Not Available Not Available Not Available furosemide 20 mg tablet active Not Available Not Available Not Available ergocalcife rol (vitamin D2) 1,250 mcg (50,000 unit) capsule TAKE 1 CAPSULE BY MOUTH EVERY WEEK 08/21 completed Not Available Not Available Not Available zolpidem 10 mg tablet TAKE 1 TABLET BY MOUTH EVERY DAY AT BEDTIME active Not Available Not Available No t Available methylpredn isolone 4 mg tablets in a dose pack FOLLOW PACKAGE DIRECTION S active Not Available Not Available No t Available albuterol sulfate HFA 90 mcg/actuati on aerosol inhaler INHALE 2 PUFFS BY MOUTH EVERY 4 TO 6 HOURS NEEDED FOR WHEEZING active Not Available Not Available No t Available SSD 1 % topical cream CODY EXT AA BID UTD 06/05 completed Not Available Not Available Not Available diltiazem 30 mg tablet TAKE 1 TABLET BY MOUTH EVERY DAY 08/21 completed Not Available Not Available Not Available albuterol sulfate 2 mg tablet TAKE 1 TABLET BY MOUTH THREE TIMES DAILY active Not Available Not Available No t Available ondansetron 4 mg disintegrat ing tablet active Not Available Not Available N ot Available fluticasone propionate 50 mcg/actuati on nasal spray,suspe nsion SPRAY TWICE IN EACH NOSTRIL BID 06/05 completed Not Available Not Available Not Available risperidone 0.5 mg tablet TK 1 T PO HS 06/05 completed Not Available Not Available Not Available naproxen 500 mg tablet TAKE 1 TABLET BY MOUTH TWICE DAILY WITH FOOD 07/24 completed Not Available Not Available Not Available amoxicillin 875 mg-potassiu m clavulanate 125 mg tablet TAKE 1 TABLET BY MOUTH TWICE DAILY FOR 10 DAYS 08/21 completed Not Available Not Available Not Available Vitamin B-12 1,000 mcg tablet TK 1 T PO QD 06/05 completed Not Available Not Available Not Available amoxicillin 500 mg-potassiu m clavulanate 125 mg tablet TAKE 1 TABLET BY MOUTH TWICE DAILY 08/21 completed Not Available Not Available Not Available oxycodone 5 mg tablet TAKE 1 TABLET BY MOUTH EVERY 8 HOURS NEEDED FOR PAIN. active Not Available Not Available No t Available neomycin-po lymyxin-hyd rocort 3.5 mg-10,000 unit/mL-1 % ear drops,susp INSTILL 4 DROPS INTO RIGHT EAR FOUR TIMES DAILY 07/24 completed Not Available Not Available Not Available escitalopra m 10 mg tablet TAKE 1 TABLET BY MOUTH DAILY active Not Available Not Available No t Available escitalopra m 20 mg tablet TAKE 1 TABLET BY MOUTH EVERY DAY 08/21 completed Not Available Not Available Not Available cyclobenzap rine 5 mg tablet TK 1 T PO BID 06/05 completed Not Available Not Available Not Available clonazepam 0.25 mg disintegrat ing tablet DIS ONE T PO BID active Not Available Not Available No t Available duloxetine 30 mg capsule,del ayed release TAKE 1 CAPSULE BY MOUTH EVERY DAY FOR 14 DAYS active Not Available Not Available No t Available duloxetine 60 mg capsule,del ayed release TAKE 1 CAPSULE BY MOUTH EVERY DAY active Not Available Not Available No t Available solifenacin 10 mg tablet TAKE 1 TABLET BY MOUTH EVERY DAY 08/21 completed Not Available Not Available Not Available Vesicare 5 mg tablet TK 1 T PO QD 06/05 completed Not Available Not Available Not Available ramelteon 8 mg tablet TK 1 T PO QD HS 08/21 completed Not Available Not Available Not Available zolpidem ER 12.5 mg tablet,exte nded release,mul tiphase TK 1 T PO QD 06/05 completed Not Available Not Available Not Available chlorhexidi ne gluconate 0.12 % mouthwash SWISH AND SPIT 15 ML BY MOUTH TWICE DAILY 07/24 completed Not Available Not Available Not Available lidocaine (PF) 10 mg/mL (1 %) injection solution In office injection administe red by the provider 08/21 completed [facility]: [phone]- [phone] Not Available Not Available Not Available quetiapine 50 mg tablet TAKE 1 TABLET BY MOUTH EVERY DAY IN THE MORNING active Not Available Not Available No t Available Symbicort 160 mcg-4.5 mcg/actuati on HFA aerosol inhaler INHALE 2 PUFFS PO BID QAM AND QPM 06/05 completed Not Available Not Available Not Available oxycodone 10 mg tablet TAKE 1 OR 2 TABLETS BY MOUTH EVERY 4 HOURS NEEDED FOR PAIN 08/21 completed Not Available Not Available Not Available cholecalcif evy (vitamin D3) 50 mcg (2,000 unit) tablet TK 1 T PO QD 06/05 completed Not Available Not Available Not Available Synvisc-One 48 mg/6 mL intra-artic ular syringe Take 2 mL by intraarti cular route. 08/21 completed Not Available Not Available Not Available Vitamin D3 125 mcg (5,000 unit) tablet TAKE 1 TABLET BY MOUTH EVERY 7 DAYS 08/21 completed Not Available Not Available Not Available ropivacaine (PF) 5 mg/mL (0.5 %) injection solution Take 20 mg by injection route. 2022 active [facility] [phone] Not Available Not Available Not Available Chantix Continuing Month Box 1 mg tablet TK 1 T PO BID AFTER MEALS WITH GLASS OF WATER 06/05 completed Not Available Not Available Not Available Chantix Starting Month Box 0.5 mg (11)-1 mg (42) tablets in dose pack FPD 06/05 completed Not Available Not Available Not Available Vicodin ES 7.5 mg-300 mg tablet TK 1 T PO Q 6 H PRN 08/21 completed Not Available Not Available Not Available Stimulant Laxative Plus 8.6 mg-50 mg tablet TAKE 1 TABLET BY MOUTH TWICE DAILY NEEDED FOR CONSTIPAT ION active Not Available Not Available No t Available Belsomra 20 mg tablet 08/21 completed Not Available Not Available Not Available Ozempic 0.25 mg or 0.5 mg (2 mg/1.5 mL) subcutaneou s pen injector active Not Available Not Available Not Available Fluzone Quad 2018(PF) 60 mcg(15 mcgx4)/0.5 mL intramuscul ar syringe TO BE ADMINISTE RED BY PHARMACIS T FOR IMMUNIZAT ION 06/05 completed Not Available Not Available Not Available Wixela Inhub 250 mcg-50 mcg/dose powder for inhalation INHALE 1 PUFF BY MOUTH TWICE DAILY 08/21 completed Not Available Not Available Not Available BinaxNOW COVID-19 Ag Self Test kit USE DIRECTED 08/21 completed Not Available Not Available Not Available Ozempic 0.25 mg or 0.5 mg (2 mg/3 mL) subcutaneou s pen injector INJECT 0.5MG UNDER THE SKIN ONCE WEEKLY FOR 4 WEEKS active Not Available Not Available No t Available Vitals Date Recorded Body height Provider Name an d Address Organization Details Last Updated DateTime 05/21/2022 165.1 cm Jesesnia Lyons [facility] 05/26/2022 12:22:01 Date Recorded Body height Body mass index (BMI) Body weight Provider Name and Address Organization Details Last Updated DateTime 08/13/2022 171.45 cm 41.7 kg/m2 658621.94 g Anne Marie Colin, [facility] 08/13/2022 11:19:59 Date Recorded Body height Body mass index (BMI) Body weight Provider Name and Address Organization Details Last Updated DateTime 08/21/2022 170.18 cm 42.6 kg/m2 853561.12 g Anne Marieabby Wilkinsons, [facility] 08/21/2022 11:33:34 Date Recorded Body height Body mass index (BMI) Body weight Provider Name and Address Organization Details Last Updated DateTime 09/18/2022 172.72 cm 41.1 kg/m2 373725.94 g Anne Marie Colin, [facility] 09/18/2022 11:09:58 Date Recorded Body height Body mass index (BMI) Body weight Provider Name and Address Organization Details Last Updated DateTime 01/16/2023 168.91 cm 39.7 kg/m2 613380.09 g Marycruz Garcia, [facility] 01/16/2023 14:41:27 Social History Question Answer Notes LastModified by [employer] Details LastModified Time Tobacco Smoking Status Current Every Day Smoker Nancy patel, [facility] 01/16/2023 14:09:29 How Much Tobacco Do You Smoke? 0.5 PPD Information not available 08/21/2022 Sex: Unknown Functional Status Question Answer Note LastModified by [employer] Details LastModified Time What is your level of alcohol consumption? Occasional [id number] Information not available 05/21/2022 Mental Status None recorded. Family History Relationship Description Onset Age of this Age Resolved Age Notes LastModified by Organization Details LastModified Time Father Family history of stroke [email or web address] Not available 2022 14:09:25 Father Diabetes mellitus [id number] Not available 05/21/2022 10:41:21 Mother Family history of malignant neoplasm [email or web address] Not available 2022 14:09:25 Mother Hypertensive disorder [id number] Not available 05/21/2022 10:41:21 Medical History Condition Response BLINDNESS N KIDNEY STONES N MRSA N CARPAL TUNNEL SYNDROME N LUNG DISEASE/DISORDER N HISTORY OF DRUG ABUSE N RADIATION / CHEMOTHERAPY N COPD Y SPORTS INJURY N ANKLE PAIN N BLOOD DISEASES N SCHIZOPHRENIA N SHINGLES N SHOULDER PAIN N DEPRESSION (INCLUDING POST ) N BOWEL PROBLEMS N STROKE/TIA N ULCERS N KNEE PAIN N BENIGN PROSTATIC HYPERPLASIA N OBESITY N GERD/NAUSEA N ANEURYSM N URINARY/BLADDER/KIDNEY PROBLEMS N CORONARY ARTERY DISEASE (CAD) N ADDICTION CONCERNS N USE OF BLOOD THINNERS N SKIN PROBLEMS N EMPHYSEMA N MUSCLE,JOINT OR BONE PROBLEMS N DVT N STOMACH ULCERS N BLOOD CLOTS N USE OF NSAIDS N CONCUSSION OR SPINAL TRAUMA N NEUROPATHY N AIDS/HIV N FRACTURES N HYPERTENSION N ELBOW PAIN N TOURETTE'S N Metal allergy N ANXIETY DISORDER N BLOOD TRANSFUSION N ANEMIA/BLOOD DISORDER Y BIPOLAR DISORDER N BRONCHITIS N OSTEOARTHRITIS N TUBERCULOSIS N FOOT PROBLEM N HEART VALVE DISORDERS N SOFT TISSUE INJURY N ALLERGIES/HAYFEVER N INFECTIOUS DISEASE N HEART ARRHYTHMIA N INSOMNIA N RHEUMATOID ARTHRITIS N HIGH CHOLESTEROL / HYPERLIPIDEMIA N EDEMA N CHRONIC PAIN SYNDROME N CAROTID BLOCKAGE N BACK / NECK PROBLEMS N HAVE YOU BEEN HOSPITALIZED OR SEEN IN [facility] IN THE PAST YEAR ? N BURSITIS N HERNIATED DISC N DIALYSIS N FIBROMYALGIA N OSTEOPOROSIS N ARTHRITIS Y NO SIGNIFICANT PAST MEDICAL HISTORY N PERIPHERAL NEUROPATHY N DIABETES, TYPE N HEARTBURN / REFLUX N HEPATITIS / LIVER DISEASE N GOUT N SLEEP DISORDER N ALZHEIMER'S DISEASE N HERPES N SEIZURES/EPILEPSY N HEADACHES/MIGRAINES N VASCULAR DISEASE N HIP PAIN N Blood Disorder N DIZZINESS N HEAD TRAUMA OR INJURY N HEART DISEASE/HEART PROBLEMS N MULTIPLE SCLEROSIS N CARDIAC ARRHYTHMIA N CANCER: SPECIFY N ANESTHESIA COMPLICATIONS N ATRIAL FIBRILLATION N AUTOIMMUNE DISEASE N Gynecological HistoryNo gynecological history recorded. Obstetrics History GPAL:G 0 P 0 0 0 0 Past Encounters Encounter ID Performer Location Encounter Start Date Encounter Closed Date Diagnosis/Indication Diagnosis SNOMED-CT Code Diagnosis ICD10 Code Diagnosis Note [id number] Chris Santana MD [facility] [address] [place] [address] 07/24/2021 00:00:00 07/24/2021 14:42:14 [id number] Chris Santana MD [facility] [place] [address] [place] [address] 08/02/2021 00:00:00 08/03/2021 12:09:28 [id number] Chris Santana MD [facility] [place] [address] [place] [address] 09/25/2021 00:00:00 09/25/2021 15:51:39 [id number] Chris Santana MD [facility] [place] [address] [place] [address] 11/13/2021 00:00:00 11/19/2021 17:29:21 [id number] Ousmane Cabrera MD [facility] [place] [address] [place] [address] 03/26/2022 00:00:00 03/26/2022 11:07:23 [id number] Ousmane Cabrera MD [facility] [place] [address] [place] [address] 05/09/2022 00:00:00 05/09/2022 14:06:51 [id number] Anjali Cordero NP [facility] [place] [address] [place] [address] 05/23/2022 16:35:53 2022 09:19:15 Osteoarthritis of right knee joint [id number] 09994 M17.11 Pain of ri ght knee joint [id number] 29059 M25.561 [id number] Ousmane Cabrera MD [facility] [place] [address] [place] [address] 08/13/2022 11:15:06 08/13/2022 11:47:00 Pain of right knee joint [id number] 30774 M25.561 [id number] Garrison West MD [facility] [place] [address] [place] [address] 08/21/2022 11:15:39 08/21/2022 12:33:42 Pain of right knee joint [id number] 52624 M25.561 Osteoarthr itis of right knee joint 0939664359 09240 M17.11 Bilateral osteoarthritis of knees 9322032554 21455 M17.0 Morbid obesity 506350008 E66.01 [id number] Garrison West MD [facility] [place] [address] [place] [address] 09/18/2022 11:03:17 09/18/2022 11:51:54 Pain of right knee joint [id number] 24413 M25.561 Osteoarthr itis of right knee joint 2525474074 18344 M17.11 Bilateral osteoarthritis of knees 6638037482 87108 M17.0 Morbid obesity 853359947 E66.01 [id number] Chris Santana MD [facility] [place] [address] [place] [address] 01/16/2023 14:08:17 01/16/2023 14:43:16 Pain of right knee joint [id number] 66791 M25.561 Osteoarthr itis of right knee joint 1104815916 95544 M17.11 Health Concerns Section Related Observation LastModified by Organization Detai ls LastModified Time None Recorded Concern Status LastModified by Organization Details LastModified Time None Recorded Advance Directives Directive None Recorded Payers Encounter Date Sequence Insurance Name Policy Number Policy Alcala Covered Member ID Alcala Member ID Guarantor Name 05/21/2022 1 [facility] (MEDICARE REPLACEMENT/AD VANTAGE - PPO) [id number] Citlali Lucio [id number] Citlali Lucio 05/21/2022 2 [place]ARE OR MEDICARE REPLACEMENT PRIMARY) Citlali Lucio [id number] Citlali Lucio 08/13/2022 1 [facility] (MEDICARE REPLACEMENT/AD VANTAGE - PPO) [id number] Citlali Lucio [id number] Citlali Lucio 08/13/2022 2 [place] OR MEDICARE REPLACEMENT PRIMARY) Citlali Lucio [id number] Citlali Lucio 08/21/2022 1 [facility] (MEDICARE REPLACEMENT/AD VANTAGE - PPO) [id number] Citlali Lucio [id number] Citlali Lucio 08/21/2022 2 [place] OR MEDICARE REPLACEMENT PRIMARY) Citlali Lucio [id number] Citlali Lucio 09/18/2022 1 [facility] (MEDICARE REPLACEMENT/AD VANTAGE - PPO) [id number] Citlali Lucio [id number] Citlali Lucio 09/18/2022 2 [place] OR MEDICARE REPLACEMENT PRIMARY) Citlali Lucio [id number] Citlali Lucio 01/16/2023 1 [facility] (MEDICARE REPLACEMENT/AD VANTAGE - PPO) [id number] Citlali Lucio [id number] Citlali Lucio 01/16/2023 2 [place] WHEN [place]ARE OR MEDICARE REPLACEMENT PRIMARY) Citlali Lucio [id number] Citlali Lucio Notes Date Note Type Note Provider Name and Address Organization Details Recorded Time 08/21/2022 text/html Patient presents arthritis both knees. She has fefv-gt-qozi arthritis of both knees and has failed conservative treatment today. She has fairly significant pain has antalgic gait pain with any motion. Garrison West MD [address], [place], [address], [employer] 08/21/2022 12:16:59 09/18/2022 text/html Patient returns knee pain right. Apparently she has had recent hyaluronic acid injections can have any till January. She has a fair bit of pain and wonders what else can be done. Garrison West MD [address], [place], [address], [employer] 09/18/2022 12:43:42 01/16/2023 text/html Patient returns for recheck of her right knee. The patient has advanced primary osteoarthritis she would clearly benefit from a total knee arthroplasty. However she was told by Dr. West she needed to lose a significant amount of weight she states she has achieved this today she has noted be 5 ft 7 in tall 250 lb with a BMI 39.7 she has gotten under 40. She would like to see Dr. West at some point to discuss total knee arthroplasty but in the meantime she also wanted a shot of cortisone in the right knee. KENDALL Milton [address], [place], [address], [place] [facility] 01/16/2023 15:07:07 OBGyn Episode No OBEpisode recorded.
--- OUTSIDE RECORDS SUMMARY | 2024-08-09 14:50 | XMS_ITS | Continuity of Care Document ---
Author Organization [facility] Address [address] [place] [address] [place] [address] Phone Care Team Providers Care Asphalt Roller Operator Name Role Phone Raul Dhillon MD Unavailable Unavailable Allergies, Adverse Reactions, Alerts Substance Reaction Status Criticality shrimp Active No Information latex Active No Information aspirin Active No Information ibuprofen Active No Information Medications Medication Instructions Dosage Effective Dates (start - stop) Status Comments Ambien 5 mg tablet take 1 Tablet by oral route every bedtime at bedtime as needed 5 MG - Active PRN for insomnia, avoid driving or operate machines pantoprazole 40 mg tablet,delayed release take 1 tablet by oral route every day 40 MG - Active Vitamin D2 1,250 mcg (50,000 unit) capsule take one capsule orally once per week - Active escitalopram 20 mg tablet take 1 tablet by oral route every day 20 MG - Active solifenacin 10 mg tablet take 1 tablet by oral route every day 10 MG - Active Zyrtec 10 mg capsule - Active hydroxyzine HCl 25 mg tablet take 1 tablet by oral route every 4 - 6 hours 25 MG - Active levothyroxine 25 mcg tablet take 1 tablet by oral route every day 25 MCG - Active Vitamin D3 2,000 unit tablet - Active quetiapine 100 mg tablet take 0.5 tablet by oral route every bedtime 50 MG - Active ProAir HFA 90 mcg/actuation aerosol inhaler inhale 2 puff by inhalation route every 4 - 6 hours as needed - Active Advair Diskus 250 mcg-50 mcg/dose powder for inhalation inhale 1 puff by inhalation route 2 times every day in the morning and evening approximately 12 hours apart 1.00 puff - Active Procedures Procedure Date OFFICE/OUTPATIENT VISIT, EST OFFICE/OUTPATIENT VISIT, EST OFFICE/OUTPATIENT VISIT, EST PPPS, initial visit OFFICE/OUTPATIENT VISIT, NEW Advance Directives Directive Yes / No Effective Date File Name No Information Encounters Encounter Description Practice Location Reason(s) For Visit Diagnoses Date Provider Providers Copied on Encounter [facility], [address], [place], [place], [address], tel:[phone] [facility] No Information 0 Alejo Acuña [address], [place], [place], [address] , [place]. tel:[phone] [facility], [address], [place], [place], [address], [place] tel:[phone] [facility] No Information 0 Alejo Acuña [address], [place], [place], [address] , [place]. tel:[phone] OFFICE/OUTPA TIENT VISIT, [facility], [address], [place], [place], [address], [place] tel:[phone] [facility] shingle1 (chief complaint) hip (chief complaint) hip pain1 (chief complaint) insomnia1 (chief complaint) lymphedema 1 (chief complaint) InsomniaChronic pain syndromeSecondary lymphedemaZoster without complicationsHypoth yroidism 0 Alejo Acuña [address], [place], [place], [address] , [place]. tel:[phone] [facility], [address], [place], [place], [address], [place] tel:[phone] [facility] No Information 0 Alejo Carter. [address], [place], [place], [address] , [place]. tel:[phone] OFFICE/OUTPA TIENT VISIT, [facility], [address], [place], [place], [address], [place] tel:[phone] [facility] hip pain1 (chief complaint) hernia1 (chief complaint) edema1 (chief complaint) hypothyroi dism1 (chief complaint) HypothyroidismVentr al herniaLymphedema, not elsewhere classifiedChronic pain syndromeInsomnia 0 Alejo Acuña [address], [place], [place], [address] , [place]. [phone] Referring Provider: Randolph Feliciano [address], [place], [place], [address]. tel:[phone] OFFICE/OUTPA TIENT VISIT, [facility], [address], [place], [place], [address], [place] tel:[phone] [facility] anemia1 (chief complaint) folate1 (chief complaint) insomnia1 (chief complaint) hip pain1 (chief complaint) thyroid1 (chief complaint) HypothyroidismAnemi aFolate deficiencyChronic pain syndromeInsomnia 0 Alejo Acuña [address], [place], [place], [address] , [place]. tel: [phone] Referring Provider: [address], [place], [place], [address]. tel:[phone] OFFICE/OUTPA TIENT VISIT, [facility], [address], [place], [place], [address], [place] tel:[phone] [facility] physical (chief complaint) Encounter for general adult medical exam w abnormal findingsSecondary lymphedemaAbdominal distensionHypothyro idismGERD w/o esophagitis 0 Alejo Acuña [address], [place], [place], [address] , [place]. tel:[phone] Referring Provider: Randolph Felician[address], [place], [place], [address]. tel:[phone] Family History Family Member Type Diagnosis Age At Onset Father Problem (finding) CAD, unknown type of [place] 84 Brother Problem (finding) Alive and well Mother Problem (finding) breast [place] 60s Payers Payer name Insurance type Covered republican ID Authoriza tion(s) No Information Social History Type Description Quantity Date Captured Comments Alcohol Use Details Unknown Caffeine Use Details Unknown Tobacco Use Status Smoking Status No Information Sex Female Chief Complaint And Reason For Visit No Information Plan Of Treatment Date Type Action Status Goal Tobacco cessation counseling completed Goal Tobacco cessation counseling completed Goal Tobacco cessation counseling completed Referral Ordered: Vascular Surgery (related to Secondary lymphedema) ordered Referral Ordered: Referrals: Vascular Surgery. Evaluate and treat ordered Referral Ordered: SHERIN MARIA -[facility] : Surgery : Vascular Surgery (related to Lymphedema, not elsewhere classified) ordered Referral Referred To: SHERIN MARIA [address] [facility] [address] [place], [phone] Ordered: Referrals: [facility]opathic [facility] Osteopathic Physicians : Surgery : Vascular Surgery. SHERIN MARIA. Evaluate and treat ordered Referral Ordered: Pain Medicine (related to Chronic pain syndrome) ordered Referral Ordered: Referrals: Pain Medicine. Evaluate and treat ordered Referral Ordered: CT ABDOMEN&PELVIS W/CONTRAST ordered Referral Ordered: US THYROID ordered Referral Ordered: MAMMOGRAM, SCREENING ordered Referral Ordered: DXA BONE DENSITY, AXIAL ordered History Of Present Illness Encounter Date Complaint History Of Prese nt Illness shingle1 Pt c/o acute ons et of blisters type of pain around right side of neck since 3-4 days ago. Pt denies any fever, chill. Pt denies any sick contact Pt denies any sick contact. Pt denies any drainage. Pt went to ER and she got acyclovir already. Pt denies any fever. lymphedema1 Pt has mild left lower extremity lymphedema. Pt was referred to Dr. Maria but he morrow not treat lymphadenoma. Pt denies any calf pain hip pain1 Pt has bilateral hip pain. Pt is s/p pain hip replacement. Pt again asking for norco for pain management. Pt was getting norco but she took benzo without prescriptions hip insomnia1 Pt has chronic i nsomnia Pt denies any snoring or any trouble with breathing at night. Pt wants ambien refilled. hip pain1 Pt has bilateral hip pain Pt has end stage arthritis. She sees Dr. Liu ([facility]) .Pt will do knee replacement soon pt has been out of pain meds and she is in rather severe pain .Pt requested referral to [facility] which takes for ever. Pt denies any fever, chill. Pt already had both hip replaced. hernia1 Pt has multiple ventral hernia containing fat Pt does not have any abdominal or pelvic mass. Pt notices mild pain around abdomen area. edema1 Pt has chronic l eft leg lymphedema. Pt denies any claudication Pt denies any paresthesia Pt had benign CT of abdomen and pelvic hypothyroidism1 Pt has low thyro id Pt has not done thyroid ultrasound yet. Pt denies any dysphagia TSH and TPO ok anemia1 Pt has anemia. P t denies any blood loss. Pt is postmeno folate1 Pt has low folat e Pt had gastric bypass surgery Pt does not take folate supplement . insomnia1 Pt has insomnia Pt states that Rozerem is not covered. insurance stating zolpidem is covered. Pt already took vistaril but did not work. Pt also took seroquel but did not work either Pt states that ambien did help in the past hip pain1 Pt has chronic b ilateral hip pain. pt takes norco for pain PRN .UDS showed ativan, codeine, morphine. Pt told me she went to ER recently and had some pain shot Pt also told me she took somebody else ativan for sleep since Rozerem is not covered thyroid1 Pt has low thyro id Pt takes synthroid .her TSH and TFT are ok. Pt denies any dysphagia physical Pt needs annual physical. Pt has low thyroid Pt takes synthroid. Pt denies any neck pain or thyroid nodule. Pt has GERD and she takes protonix PRn only ,Pt needs to take it 2-3 per week. Pt never tried pepcid or zantac Pt never had EGD ,Pt has anxiety and depression Pt takes lexapro, seroquel, Rozerem and vistaril and doing ok pt denies any suicidal or homicidal thought Pt has OAB ,Pt takes solifenacin and doing ok. Pt has chronic hip pain, pt had bilateral hip replacement Pt takes norco QID for chronic pain. Pt failed injections Pt has sleep apnea ,Pt uses CPAP and doing ok. Pt c/o left side of abdomen distension with pain sometimes for several years Pt has chronic left leg lymphedema. Pt denies any paresthesia. Instructions Date Instruction Additional Infor mation No Information Assessments Type Assessment Date No Information
== END 2024-08-09 14:37 | disposition home or self-care (01) ==
DX: S09.90XA Unspecified injury of head, initial encounter (principal); V86.55XA Driver of 3- or 4- wheeled all-terrain vehicle (ATV) injured in nontraffic accident, initial encounter
CPT/HCPCS: 70470; Q9967

== ENCOUNTER → 2024-08-23 10:46 | Outpatient (CLI) | payer MEDICARE, MEDICAID, SELFPAY ==
--- NOTE | ~2024-08-23 | XR_ITS ---
Right Knee Technique: AP, lateral, and oblique views were obtained. Clinical History: Pain Findings: No fracture or dislocation is seen. Right knee arthroplasty in place. Soft tissues are unre markable. No joint effusion is seen. Impression: No acute abnormality. Right knee arthroplasty. Reviewed, dictated and finalized at location . Impression: No acute abnormality. Right knee arthroplasty.
== END ==
LOC: EXPCRAD 11:00
DX: M25.561 Pain in right knee (principal); Z96.651 Presence of right artificial knee joint
CPT/HCPCS: 73562

== ENCOUNTER 2025-02-25 16:42 | Emergency (ER) | payer MEDICARE, MEDICAID, SELFPAY ==
--- OUTSIDE RECORDS SUMMARY | 2014-04-18 | XMS_ITS | Encounter Summary ---
Author Organization [facility] Healthcare Address [address] [place] [address] Care Team Providers Care House Furnishings Supervisor Name Role Phone Unavailable Primary Care Provider Unavailabl e Reason for Visit * Diagnostic Imaging (Routine) - Closed Specialty Diagnoses / Procedures Referred By Contac t Referred To Contact Procedures Breast Imaging Screening Outside Reference Transcribed Order, Provider Referral ID Status Reason Start Date Expiration Date Visits Re quested Visits Authorized [id number] Closed 06/25/2023 07/24/2024 1 1 Encounter Details Date Type Department Care Team (Late st Contact Info) Description 04/18/2014 Hospital Encounter [facility] [address] [place] [address] Social History Tobacco Use Types Packs/Day Years Used Date Smoking Tobacco: Former Cigarettes 0.8 30.9 1 993 - 02/20/2023 Smokeless Tobacco: Never AUDIT-C Answer Date Recorded Q1: How often do you have a drink containing alc ohol? Monthly or less 06/12/2023 Q2: How many drinks containi ng alcohol do you have on a typical day when you are drinking? 1 or 2 06/12/2023 Q3: How often do you have si x or more drinks on one occasion? Never 06/12/2023 Personal Safety Answer Date Recorded Have you ever been in or are you currently in a harmful physical or emotional relationship or is someone making you feel afraid or unsafe? 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 Question Answer Date of Assessment Author Have you ever felt the need to Cut down on your drinking? 0 06/12/2023 2:16 PM HESHAMT Courtney Israel RN Have people ever Annoyed yo u by criticizing your drinking? 0 06/12/2023 2:16 PM CDT Courtney Soto RN Have you ever felt bad or Guilty about your drinking? 0 06/12/2023 2:16 PM HESHAMT Courtney Fuchs RN Have you ever had a drink first thing in the morning to steady your nerves or get rid of a hangover? Eye hogshead opener? 0 06/12/2023 2:16 PM HESHAMT Courtney Israel RN CAGE SCORE: 2 or Greater = Positive 0 06/12/2023 2:16 PM CDT Courtney Israel RN * Difference in Last Two Moreno Scores Answer Date of Assessment Author -1 06/15/2023 9:56 AM HESHAMT Courtney Israel RN * Question Answer Date of Assessment Author BP Location Left arm 06/15/2023 9:52 AM CDT Jf Nicholson BP Method Automatic 06/15/2023 9:52 AM CDT Jf Nicholson MAP (mmHg) 74 06/15/2023 8:10 AM HESHAMT Charanjit Freeman RN * Salazar Fall Risk Question Answer Date of Assessment Author History of Falling 0 06/15/2023 9:56 AM Charanjit Smart RN Secondary Diagnosis 15 06/15/2023 9:56 AM Charanjit Langford RN Ambulatory Aids 15 06/15/2023 9:56 AM CDT Charanjit Walker RN Intravenous Therapy/Heparin/Saline Lock 20 06/15/2023 9:56 AM Ashly Smart RN Gait/Transferring 0 06/15/2023 9:56 AM Charanjit Smart RN Mental Status 0 06/15/2023 9:56 AM Charanjit Arevalo RN Salazar Fall Risk Score (Score >= 45 places fall precaution order) 50 06/15/2023 9:56 AM Charanjit Smart RN Prior Fall Event (Autopopulated from EMR) None found 06/15/2023 9:56 AM Lauren Smart RN * Moreno Scale Question Answer Date of Assessment Author Sensory Perceptions 4 06/15/2023 9:56 AM Courtney Buchanan RN Moisture 4 06/15/2023 9:56 AM Charanjit Mcknight RN Activity 3 06/15/2023 9:56 AM Charanjit Mcknight RN Mobility 3 06/15/2023 9:56 AM Charanjit Mcknight RN Nutrition 3 06/15/2023 9:56 AM Charanjit Mcknight RN Friction and Shear 3 06/15/2023 9:56 AM Charanjit Smart RN Moreno Scale Score 20 06/15/2023 9:56 AM Courtney Pressley RN * Fall Risk Interventions Question Answer Date of Assessment Author All Low Fall Interventions Applied Yes 06/15/2023 9:56 AM Charanjit Smart RN All Moderate Fall Interventions Applied Yes 06/15/2023 9:56 AM Charanjit Smart RN All Moderate Fall Risk Interventions EXCEPT: Fall risk sign with education;PT eval requested or obtained;OT eval requested or obtained;Gait belt at bedside 06/12/2023 6:11 AM Lashay Whitley RN All High Fall Risk Interventions Applied No 06/15/2023 9:56 AM Charanjit Smart RN All High Risk Interventions EXCEPT: Bed alarm;Chair alarm 06/15/2023 9:56 AM Charanjit Smart RN Reason For Exception(s) pt in preop 06/12/19 6:11 AM Lashay Whitley RN Reason For Exception(s) Patient is indep endent and uses call light appropriatley 06/15/2023 9:56 AM Charanjit Smart RN * B.M.A.T. - Bedside Mobility Assessment Tool for Nurses Question Answer Date of Assessment Author Is patient able to participate in the BMAT? Yes 06/15/2023 9:56 AM Charanjit Smart RN BMAT Level Level 3 - Yellow 06/15/2023 9:56 AM HESHAMT Charanjit Swift RN Level 3 Equipment Use assistive device such as cane/walker 06/14/2023 8:15 PM HESHAMT Sudha Prabhakar RN * Question Answer Date of Assessment Author 1. Has the patient self-reported, presented with clinical signs of, or have a documented history of any of the following within the past 30 days? No 06/12/2023 2:16 PM HESHAMT Courtney Israel RN * Question Answer Date of Assessment Author Is the patient being treated today because it is known or suspected that they prepared, started, or tried to end their life? No 06/12/2023 2:16 PM Courtney Pressley RN * Question Answer Date of Assessment Author 1. In the past month, have you wished you were or that you could go to sleep and not wake up? No 06/12/2023 2:16 PM Courtney Pressley RN 2. In the past month, have you actually had any thoughts of killing yourself? No 06/12/2023 2:16 PM HESHAMT Courtney Israel RN 6. Have you ever done anything, started to do anything, or prepared to do anything to end your life? No 06/12/2023 2:16 PM Courtney Pressley RN * Suicide Risk Level Answer Date of Assessment Author No risk level 06/12/2023 2:16 PM Courtney Pressley RN * Self-Injurious Risk Level Answer Date of Assessment Author No risk level 06/12/2023 2:16 PM Courtney Pressley RN * Alcohol Withdrawal BP Hierarchy Answer Date of Assessment Author 61 10/01/2022 11:13 AM HESHAMT Lashay Beck RN * Pressure Injury Prevention Question Answer Date of Assessment Author Pressure Ulcer Prevention Interventions Keep skin clean and dry (Sensory Perception/Moistur e) 06/15/2023 9:56 AM Charanjit Smart, YESI 2 Nurse Skin Assessment Courtney ray Fallon 06/12/2023 3:3 6 PM HESHAMT Courtney Israel RN * Transdermal Patch Admission Assessment Question Answer Date of Assessment Author Transdermal Patch Assessment on Admission Not Present 06/12/2023 3:36 PM HESHAMT Courtney Israel RN * AUDIT-C Score Answer Date of Assessment Author 1 06/12/2023 6:00 AM Lashay Whitley RN * Alcohol Use Question Answer Date of Assessment Author Q1: How often do you have a drink containing alcohol? Monthly or less 06/12/2023 6:00 AM Lashay Whitley RN Q2: How many drinks containing alcohol do you have on a typical day when you are drinking? 1 or 2 06/12/2023 6:00 AM Lashay Whitley RN Q3: How often do you have six or more drinks on one occasion? Never 06/12/2023 6:00 AM Lashay Whitley RN * Integumentary Question Answer Date of Assessment Author Skin Color Appropriate for ethnicity 06/15/2023 9:56 AM Charanjit Smart RN Skin Condition/Temp Warm;Dry 06/15/2023 9 :56 AM Charanjit Smart RN Skin Integrity Surgical incision 06/15/2023 9:5 6 AM Charanjit Smart RN Skin Turgor Non-tenting 06/15/2023 9:56 AM Charanjit Smart RN Integumentary Additional Assessments Yes-Moreno 06/15/2023 9:56 AM Charanjit Smart RN Integumentary (WDL) X 06/15/2023 9 :56 AM Charanjit Smart RN Skin Location RLE: Surgical Incison 06/15/2023 9:56 AM Charanjit Smart RN * Wound (LDAs) Question Answer Date of Assessment Author Type of Wound (LDA) Surgical site 06/12/2023 9:50 PM Ingrid Fisher RN * Moreno Scale Question Answer Date of Assessment Author Moreno Scale Used Moreno 06/12/2023 10:20 AM CDT Ila Landa, YESI * Question Answer Date of Assessment Author BP Location Left arm 06/15/2023 9:52 AM CDT Jf Nicholson BP Method Automatic 06/15/2023 9:52 AM CDT Jf Nicholson * Question Answer Date of Assessment Author RLE Edema No pitting 06/15/2023 9:56 AM Charanjit Mcknight RN LLE Edema No pitting 06/15/2023 9:56 AM HESHAMT Charanjit Freeman RN * Question Answer Date of Assessment Author Percent Meal Eaten (%) 25 06/13/2023 9:30 AM CDT Marcela Kirkpatrick RN * Fall Risk Interventions Question Answer Date of Assessment Author All Low Fall Interventions Applied Yes 06/15/2023 9:56 AM Charanjit Smart RN All Moderate Fall Interventions Applied Yes 06/15/2023 9:56 AM Charanjit Smart RN All Moderate Fall Risk Interventions EXCEPT: Fall risk sign with education;PT eval requested or obtained;OT eval requested or obtained;Gait belt at bedside 06/12/2023 6:11 AM Lashay Whitley RN All High Fall Risk Interventions Applied No 06/15/2023 9:56 AM Charanjit Smart RN All High Risk Interventions EXCEPT: Bed alarm;Chair alarm 06/15/2023 9:56 AM Charanjit Smart RN Reason For Exception(s) pt in preop 06/12/19 6:11 AM Lashay Whitley RN Reason For Exception(s) Patient is indep endent and uses call light appropriatley 06/15/2023 9:56 AM HESHAMT Charanjit Yeager RN * ADL Screening Question Answer Date of Assessment Author Patient's Vision Adequate to Safely Complete Daily Activities Yes 06/12/2023 2:16 PM CDT Courtney Israel, YESI Patient's Judgement Adequate to Safely Complete Daily Activities Yes 06/12/2023 2:16 PM CDT Courtney Israel, YESI Patient's Memory Adequate to Safely Complete Daily Activities Yes 06/12/2023 2:16 PM CDT Courtney Israel RN Patient Able to Express Needs/Desires Yes 06/12/2023 2:16 PM HESHAMT Courtney Israel, YESI Dressing Independent 06/12/2023 2:16 PM HESHAMT Courtney Marcus RN Grooming Independent 06/12/2023 2:16 PM HESHAMT Courtney Marcus RN Feeding Independent 06/12/2023 2:16 PM CDT Courtney Marcus RN Bathing Independent 06/12/2023 2:16 PM HESHAMT Courtney Marcus RN Toileting Independent 06/12/2023 2:16 PM HESHAMT Courtney Marcus RN In/Out Bed Independent 06/12/2023 2:16 PM HESHAMT Courtney Marcus RN Walks in Home Independent 06/12/2023 2:16 PM CDT Kaz rtCourtney upton RN Weakness of Legs None 06/12/2023 2:16 PM CDT M cCartCourtney upton RN Weakness of Arms/Hands None 06/12/2023 2:16 PM HESHAMT Courtney Israel RN Hearing - Right Ear Functional 06/12/2023 2:16 PM CD Courtney Chadwick RN Hearing - Left Ear Functional 06/12/2023 2:16 PM Courtney Pressley RN Dominant hand? Right 06/12/2023 2:16 PM HESHAMT Courtney Batista RN Decline in ADLs in last 2 weeks? No 06/12/2023 2:16 PM HESHAMT Courtney Israel, YESI * Therapy Consults Question Answer Date of Assessment Author PT Evaluation Needed 1 06/12/2023 2:16 PM Courtney Farris RN OT Evaluation Needed 1 06/12/2023 2:16 PM Courtney Farris, YESI CHIEF INVESTMENT OFFICER Evaluation Needed 2 06/12/2023 2:16 PM Courtney Pressley RN * Assistive Devices Question Answer Date of Assessment Author Assistive Devices/DME CPAP/BiPAP;Cane 06/12/2023 2:16 PM Courtney Pressley RN * Speech/Swallow Screening Question Answer Date of Assessment Author Currently, does patient have difficulty swallowing; coughing/choking while swallowing, or feels like food is sticking No 06/12/2023 2:16 PM Courtney Pressley RN In the past two weeks has the patient had changes in speaking or ability to comprehend conversation No 06/12/2023 2:16 PM Courtney Pressley RN Currently, does patient require thickened liquids or dysphagia diet No 06/12/2023 2:16 PM Courtney Pressley RN Patient is in need of CHIEF INVESTMENT OFFICER Order: No CHIEF INVESTMENT OFFICER order needed from this assessment 06/12/2023 2:16 PM Courtney Pressley RN * Question Answer Date of Assessment Author Bed In Lowest Position Yes 06/15/2023 5:00 AM Sudha Elena RN Bed Wheels Locked Yes 06/15/2023 5:00 AM Sudha Elena RN * Hygiene Question Answer Date of Assessment Author Hygiene Level of Assistance Independent 06/14/2023 12:06 PM Luann Dumont RN Toileting: Assistance with Bedside commode;Perineal hygiene;Use of adaptive equipment;Back to bed 06/15/2023 3:00 AM Sudha Elena RN Toileting: Level of assistance Set up;Minimal;Stayed within arms reach;Stayed within visual field 06/15/2023 3:00 AM Sudha Elena RN Perineal Care Frances Care 06/15/2023 3:00 AM Sudha Elena RN Linens Complete linen change;Absorbent pad changed 06/15/2023 3:00 AM Sudha Elena RN Bath Bathed/showered with chlorhexidine (CHG) 06/14/2023 12:06 PM Luann Dumont RN documented as of this encounter Mental Status * Question Answer Entry Date Author Level of Consciousness Alert;Awake 9:56 AM Charanjit Smart RN Orientation Oriented X4 (person, place, time, situation) 06/15/2023 9:56 AM CDT Charanjit Yeager RN Neuro (WDL) X 06/15/2023 9:56 AM CDT Courtney Israel, YESI * Question Answer Entry Date Author Neuro (MARK) WDL 06/12/2023 1:00 PM CDT Francisco Javier muhammad, Ila Law RN documented in this encounter Plan of Treatment Upcoming Encounters Date Type Department Care Team (Latest Contact Info) Description 04/27/2025 7:30 AM MOVABLE BULKHEAD INSTALLER Hospital Encounter [facility] Operating Room [address] [place] [address] Surinder Garcia MD [address] [facility] [place] [address] 04/27/2025 7:30 AM MOVABLE BULKHEAD INSTALLER - 04/27/2025 10:12 AM MOVABLE BULKHEAD INSTALLER Surgery [facility] Operating Room [address] [place] [address] Surinder Garcia MD [address] [facility] [place] [address] ARTHROPLASTY TOTAL KNEE- Left Total Knee Arthroplasty Scheduled Procedures Name Priority Associated Diagnoses Date/Ti me ARTHROPLASTY TOTAL KNEE Primary osteoarthritis of left knee 04/27/2025 7:30 AM MOVABLE BULKHEAD INSTALLER documented as of this encounter Procedures Procedure Name Priority Date/Time Associated Diagnosis Comments BREAST IMAGING MG SCREENING OUTSIDE REFERENCE Routine 04/18/2014 12:00 AM MOVABLE BULKHEAD INSTALLER documented in this encounter Results * Breast Imaging Screening Outside Reference (04/18/2014 12:00 AM MOVABLE BULKHEAD INSTALLER) Impressions RAD_MAMMO_[facility] - 06/25/2023 11:39 AM CDT These images are for Reference purposes only and have not been reviewed by [facility] Radiology. There will be no report generated by a [facility] Radiologist. Narrative RAD_MAMMO_[facility] - 06/25/2023 11:39 AM CDT EXAMINATION: Images For Reference Purposes Only us Provider Transcribed Order IMG MAMMO PROCEDURES Final Result RAD_MAMMO_[facility] documented in this encounter Visit Diagnoses Not on filedocumented in this encounter
--- OUTSIDE RECORDS SUMMARY | 2014-04-18 | XMS_ITS | Encounter Summary ---
Author Organization [facility] Healthcare Address [address] [place] [address] Care Team Providers Care Calender Wind Up Helper Name Role Phone Unavailable Primary Care Provider Unavailabl e Reason for Visit * Diagnostic Imaging (Routine) - Closed Specialty Diagnoses / Procedures Referred By Contac t Referred To Contact Procedures Breast Imaging Screening Outside Reference Transcribed Order, Provider Referral ID Status Reason Start Date Expiration Date Visits Re quested Visits Authorized [id number] Closed 06/25/2023 07/24/2024 1 1 Encounter Details Date Type Department Care Team (Late st Contact Info) Description 04/18/2014 Hospital Encounter 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 Eye executive housekeeper? 0 06/12/2023 2:16 PM HESHAMT Courtney Israel [...] YESI 2 Nurse Skin Assessment Courtney ray Afllon 06/12/2023 3:3 6 PM HESHAMT Courtney Israel [...] Location RLE: Surgical Incison 06/15/2023 9:56 AM Cahranjit Smart RN * Wound (LDAs) Question Answer [...] 1 06/12/2023 2:16 PM Courtney Farris, YESI HAMMERSMITH HELPER Evaluation Needed 2 06/12/2023 2:16 PM Courtney [...] Pressley RN Patient is in need of HAMMERSMITH HELPER Order: No HAMMERSMITH HELPER order needed from this assessment 06/12/2023 2:16 [...] (Latest Contact Info) Description 04/27/2025 7:30 AM BOILER/CHILLER OPERATOR Hospital Encounter [facility] Operating Room [address] [place] [address] Surinder Garcia MD [address] [facility] [place] [address] 04/27/2025 7:30 AM BOILER/CHILLER OPERATOR - 04/27/2025 10:12 AM BOILER/CHILLER OPERATOR Surgery [facility] Operating Room [address] [place] [address] Surinder Garcia MD [address] [facility] [address] ARTHROPLASTY TOTAL KNEE- Left Total Knee Arthroplasty Scheduled Procedures Name Priority Associated Diagnoses Date/Ti me ARTHROPLASTY TOTAL KNEE Primary osteoarthritis of left knee 04/27/2025 7:30 AM BOILER/CHILLER OPERATOR documented as of this encounter Procedures Procedure Name Priority Date/Time Associated Diagnosis Comments BREAST IMAGING MG SCREENING OUTSIDE REFERENCE Routine 04/18/2014 12:00 AM BOILER/CHILLER OPERATOR documented in this encounter Results * Breast Imaging Screening Outside Reference (04/18/2014 12:00 AM BOILER/CHILLER OPERATOR) Impressions RAD_MAMMO_[facility] - 06/25/2023 11:39 AM CDT These images are for Reference purposes only and have not been reviewed by [facility] Radiology. There will be no report generated by a [facility] Radiologist. Narrative RAD_MAMMO_[facility] - 06/25/2023 11:39 AM CDT EXAMINATION: Images For Reference Purposes Only us Provider Transcribed Order IMG MAMMO PROCEDURES Final Result RAD[facility]MAMMO_[facility] documented in this encounter Visit Diagnoses Not on filedocumented in this encounter
--- OUTSIDE RECORDS SUMMARY | 2015-06-10 23:00 | XMS_ITS | Encounter Summary ---
Author Organization [facility] Healthcare Address [address] [place] [address] Care Team Providers Care Director Of Physical Education Name Role Phone Unavailable Primary Care Provider Unavailabl e Reason for Visit * Diagnostic Imaging (Routine) - Closed Specialty Diagnoses / Procedures Referred By Contac t Referred To Contact Procedures Breast Imaging Screening Outside Reference Transcribed Order, Provider Referral ID Status Reason Start Date Expiration Date Visits Re quested Visits Authorized [id number] Closed 06/25/2023 07/24/2024 1 1 Encounter Details Date Type Department Care Team (Late st Contact Info) Description 06/11/2015 Hospital Encounter [facility] [address] [place] [address] Social History Tobacco Use Types Packs/Day Years [...] on file 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 Eye radiology specialist? 0 06/12/2023 2:16 PM HESHAMT Courtney Israel [...] RN Mental Status 0 06/15/2023 9:56 AM Charanijt Arevalo RN Salazar Fall Risk Score (Score [...] Israel, YESI Dressing Independent 06/12/2023 2:16 PM HSEHAMT Courtney Marcus RN Grooming Independent 06/12/2023 2:16 [...] 1 06/12/2023 2:16 PM Courtney Farris, YESI WEIGHTS AND MEASURES INSPECTOR Evaluation Needed 2 06/12/2023 2:16 PM Courtney [...] Pressley RN Patient is in need of WEIGHTS AND MEASURES INSPECTOR Order: No WEIGHTS AND MEASURES INSPECTOR order needed from this assessment 06/12/2023 2:16 PM Courtney Pressley RN * Question Answer Date of Assessment Author Bed In Lowest Position Yes 06/15/2023 5:00 AM Sudha Elena RN Bed Wheels Locked Yes 06/15/2023 5:00 AM Sudha Elena RN * Hygiene Question Answer Date of Assessment Author Hygiene Level of Assistance Independent 06/14/2023 12:06 PM uLann Dumont RN Toileting: Assistance with Bedside commode;Perineal [...] (Latest Contact Info) Description 04/27/2025 7:30 AM WEAPONS AND TACTICS INSTRUCTOR Hospital Encounter [facility] Operating Room [address] [place] [address] Surinder Garcia MD [address] [facility] [place] [address] 04/27/2025 7:30 AM WEAPONS AND TACTICS INSTRUCTOR - 04/27/2025 10:12 AM WEAPONS AND TACTICS INSTRUCTOR Surgery [facility] Operating [address] [place] [address] Surinder Garcia MD [address] [facility] [place] [address] ARTHROPLASTY TOTAL KNEE- Left Total Knee Arthroplasty Scheduled Procedures Name Priority Associated Diagnoses Date/Ti me ARTHROPLASTY TOTAL KNEE Primary osteoarthritis of left knee 04/27/2025 7:30 AM WEAPONS AND TACTICS INSTRUCTOR documented as of this encounter Procedures Procedure Name Priority Date/Time Associated Diagnosis Comments BREAST IMAGING MG SCREENING OUTSIDE REFERENCE Routine 06/11/2015 12:00 AM CDT documented in this encounter Results * Breast Imaging Screening Outside Reference (06/11/2015 12:00 AM CDT) Impressions RAD_MAMMO_[facility] - 06/25/2023 11:39 AM CDT These images are for Reference purposes only and have not been reviewed by [facility] Radiology. There will be no report generated by a [facility] Radiologist. Narrative RAD_MAMMO_[facility] - 06/25/2023 11:39 AM CDT EXAMINATION: Images For Reference Purposes Only us Provider Transcribed Order IMG MAMMO PROCEDURES Final Result RAD[facility]MAMMO_[facility] documented in this encounter Visit Diagnoses Not on filedocumented in this encounter
--- OUTSIDE RECORDS SUMMARY | 2015-06-10 23:00 | XMS_ITS | Encounter Summary ---
Author Organization [facility] Healthcare Address [address] [place] [address] Care Team Providers Care Passport Support Manager Name Role Phone Unavailable Primary Care Provider Unavailabl e Reason for Visit * Diagnostic Imaging (Routine) - Closed Specialty Diagnoses / Procedures Referred By Contac t Referred To Contact Procedures Breast Imaging Screening Outside Reference Transcribed Order, Provider Referral ID Status Reason Start Date Expiration Date Visits Re quested Visits Authorized [id number] Closed 06/25/2023 07/24/2024 1 1 Encounter Details Date Type Department Care Team (Late st Contact Info) Description 06/11/2015 Hospital Encounter [facility] [address] [place] [address] Social History Tobacco Use Types Packs/Day Years [...] on file 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 Eye yarn wrapper? 0 06/12/2023 2:16 PM HESHAMT Courtney Israel [...] Assessment Author 1 06/12/2023 6:00 AM Lashay Whtiley RN * Alcohol Use Question Answer Date [...] 1 06/12/2023 2:16 PM Courtney Farris, YESI TRANSPLANT CASE MANAGER Evaluation Needed 2 06/12/2023 2:16 PM Courtney [...] Pressley RN Patient is in need of TRANSPLANT CASE MANAGER Order: No TRANSPLANT CASE MANAGER order needed from this assessment 06/12/2023 2:16 [...] (Latest Contact Info) Description 04/27/2025 7:30 AM SILK SOAKER Hospital Encounter [facility] Operating Room [address] [place] [address] Surinder Garcia MD [address] [facility] [place] [address] 04/27/2025 7:30 AM SILK SOAKER - 04/27/2025 10:12 AM SILK SOAKER Surgery [facility] Operating Room [address] [place] [address] Surinder Garcia MD [address] [facility] [place] [address] ARTHROPLASTY TOTAL KNEE- Left Total Knee Arthroplasty Scheduled Procedures Name Priority Associated Diagnoses Date/Ti me ARTHROPLASTY TOTAL KNEE Primary osteoarthritis of left knee 04/27/2025 7:30 AM SILK SOAKER documented as of this encounter Procedures Procedure Name Priority Date/Time Associated Diagnosis Comments BREAST IMAGING MG SCREENING OUTSIDE REFERENCE Routine 06/11/2015 12:00 AM CDT documented in this encounter Results * Breast Imaging Screening Outside Reference (06/11/2015 12:00 AM CDT) Impressions RAD_MAMMO_[facility] - 06/25/2023 11:39 AM CDT These images are for Reference purposes only and have not been reviewed by [facility] Radiology. There will be no report generated by a [facility] Radiologist. Narrative RAD_MAMMO_[facility] - 06/25/2023 11:39 AM CDT EXAMINATION: Images For Reference Purposes Only us Provider Transcribed Order IMG MAMMO PROCEDURES Final Result RAD_MAMMO_[facility] documented in this encounter Visit Diagnoses Not on filedocumented in this encounter
--- OUTSIDE RECORDS SUMMARY | 2016-11-10 23:00 | XMS_ITS | Encounter Summary ---
Author Organization [facility] Healthcare Address [address] [place] [address] Care Team Providers Care Paragliding Instructor Name Role Phone Unavailable Primary Care Provider Unavailabl e Reason for Visit * Diagnostic Imaging (Routine) - Closed Specialty Diagnoses / Procedures Referred By Contac t Referred To Contact Procedures Breast Imaging Screening Outside Reference Transcribed Order, Provider Referral ID Status Reason Start Date Expiration Date Visits Re quested Visits Authorized [id number] Closed 07/20/2023 08/18/2024 1 1 Encounter Details Date Type Department Care Team (Late st Contact Info) Description 11/11/2016 Hospital Encounter [facility] [address] [place] [address] Social History Tobacco Use Types Packs/Day Years [...] on file Legal Sex Female 9:28 AM SOFTWARE INTEGRATION DEVELOPER Gender Identity Not on file Sexual Orientation [...] about your drinking? 0 06/12/2023 2:16 PM CDT Courtney Fuchs RN Have you ever had a drink first thing in the morning to steady your nerves or get rid of a hangover? Eye brand ambassador? 0 06/12/2023 2:16 PM HESHAMT Courtney Israel [...] Intravenous Therapy/Heparin/Saline Lock 20 06/15/2023 9:56 AM HESHAMT Ashly Yeager RN Gait/Transferring 0 06/15/2023 9:56 AM Charanjit Smart RN Mental Status 0 06/15/2023 9:56 AM HESHAMT Charanjit Loco RN Salazar Fall Risk Score (Score >= [...] the BMAT? Yes 06/15/2023 9:56 AM Charanjit Smart, YESI BMAT Level Level 3 - Yellow 06/15/2023 [...] end their life? No 06/12/2023 2:16 PM HESHAMT Courtney Israel [...] on Admission Not Present 06/12/2023 3:36 PM CDT Courtney Israel RN * AUDIT-C Score Answer [...] LLE Edema No pitting 06/15/2023 9:56 AM CDT Charanjit Freeman RN * Question Answer Date of Assessment Author Percent Meal Eaten (%) 25 06/13/2023 9:30 AM CDT Marcela Kirkpatrick RN * Fall Risk Interventions Question Answer Date of Assessment Author All Low Fall Interventions Applied Yes 06/15/2023 9:56 AM Charanjit Smart RN All Moderate Fall Interventions Applied Yes 06/15/2023 9:56 AM HESHAMT Charanjit Yeager RN All Moderate Fall Risk Interventions EXCEPT: [...] Marcus RN Feeding Independent 06/12/2023 2:16 PM HESHAMT Courtney Marcus RN Bathing Independent 06/12/2023 2:16 PM HESHAMT Courtney Marcus RN Toileting Independent 06/12/2023 2:16 PM HESHAMT Courtney Marcus RN In/Out Bed Independent 06/12/2023 2:16 PM HESHAMT Courtney Marcus RN Walks in Home Independent 06/12/2023 2:16 PM CDT Kaz rtCourtney upton RN Weakness of Legs None 06/12/2023 2:16 PM CDT M cCartCourtney upton RN Weakness of Arms/Hands None 06/12/2023 2:16 PM Courtney Pressley RN Hearing - Right Ear Functional 06/12/2023 [...] 1 06/12/2023 2:16 PM Courtney Farris, YESI DIRECTOR OF MATERIALS MANAGEMENT Evaluation Needed 2 06/12/2023 2:16 PM Courtney [...] dysphagia diet No 06/12/2023 2:16 PM Courtney Presslye RN Patient is in need of DIRECTOR OF MATERIALS MANAGEMENT Order: No DIRECTOR OF MATERIALS MANAGEMENT order needed from this assessment 06/12/2023 2:16 [...] (WDL) X 06/15/2023 9:56 AM CDT Courtney Israel RN * Question Answer Entry Date Author Neuro (MARK) WDL 06/12/2023 1:00 PM CDT Francisco Javier muhammad, Ila Law RN documented in this encounter Plan of Treatment Upcoming Encounters Date Type Department Care Team (Latest Contact Info) Description 04/27/2025 7:30 AM SOFTWARE INTEGRATION DEVELOPER Hospital Encounter [facility] Operating Room [address] [place] [address] Surinder Garcia MD [address] [facility] [place] [address] 04/27/2025 7:30 AM SOFTWARE INTEGRATION DEVELOPER - 04/27/2025 10:12 AM SOFTWARE INTEGRATION DEVELOPER Surgery [facility] Operating Room [address] [place] [address] Surinder Garcia MD [address] [facility] [place] [address] ARTHROPLASTY TOTAL KNEE- Left Total Knee Arthroplasty Scheduled Procedures Name Priority Associated Diagnoses Date/Ti me ARTHROPLASTY TOTAL KNEE Primary osteoarthritis of left knee 04/27/2025 7:30 AM SOFTWARE INTEGRATION DEVELOPER documented as of this encounter Procedures Procedure Name Priority Date/Time Associated Diagnosis Comments BREAST IMAGING MG SCREENING OUTSIDE REFERENCE Routine 11/11/2016 12:00 AM CDT documented in this encounter Results * Breast Imaging Screening Outside Reference (11/11/2016 12:00 AM CDT) Impressions RAD_MAMMO_[facility] - 07/20/2023 1:53 PM CDT These images are for Reference purposes only and have not been reviewed by [facility] Radiology. There will be no report generated by a [facility] Radiologist. Narrative RAD_MAMMO_[facility] - 07/20/2023 1:53 PM CDT EXAMINATION: Images For Reference Purposes Only us Provider Transcribed Order IMG MAMMO PROCEDURES Final Result RAD_MAMMO_[facility] documented in this encounter Visit Diagnoses Not on filedocumented in this encounter
--- OUTSIDE RECORDS SUMMARY | 2016-11-10 23:00 | XMS_ITS | Encounter Summary ---
Author Organization [facility] Healthcare Address [address] [place] [address] Care Team Providers Care Specification Manager Name Role Phone Unavailable Primary Care Provider Unavailabl e Reason for Visit * Diagnostic Imaging (Routine) - Closed Specialty Diagnoses / Procedures Referred By Contac t Referred To Contact Procedures Breast Imaging Screening Outside Reference Transcribed Order, Provider Referral ID Status Reason Start Date Expiration Date Visits Re quested Visits Authorized [id number] Closed 07/20/2023 08/18/2024 1 1 Encounter Details Date Type Department Care Team (Late st Contact Info) Description 11/11/2016 Hospital Encounter [facility] [address] [place] [address] Social History Tobacco Use Types Packs/Day Years [...] on file Legal Sex Female 9:28 AM COIL BINDER Gender Identity Not on file Sexual Orientation [...] or get rid of a hangover? Eye sales management intern? 0 06/12/2023 2:16 PM HESHAMT Courtney Israel [...] Author No risk level 06/12/2023 2:16 PM Courtnye Pressley RN * Self-Injurious Risk Level Answer [...] 1 06/12/2023 2:16 PM Courtney Farris, YESI WOOD MODEL BUILDER Evaluation Needed 2 06/12/2023 2:16 PM Courtney [...] Pressley RN Patient is in need of WOOD MODEL BUILDER Order: No WOOD MODEL BUILDER order needed from this assessment 06/12/2023 2:16 [...] (Latest Contact Info) Description 04/27/2025 7:30 AM COIL BINDER Hospital Encounter [facility] Operating Room [address] [place] [address] Surinder Garcia MD [address] [facility] [place] [address] 04/27/2025 7:30 AM COIL BINDER - 04/27/2025 10:12 AM COIL BINDER Surgery [facility] Operating Room [address] [place] [address] Surinder Garcia MD [address] [place] [address] ARTHROPLASTY TOTAL KNEE- Left Total Knee Arthroplasty Scheduled Procedures Name Priority Associated Diagnoses Date/Ti me ARTHROPLASTY TOTAL KNEE Primary osteoarthritis of left knee 04/27/2025 7:30 AM COIL BINDER documented as of this encounter Procedures Procedure Name Priority Date/Time Associated Diagnosis Comments BREAST IMAGING MG SCREENING OUTSIDE REFERENCE Routine 11/11/2016 12:00 AM CDT documented in this encounter Results * Breast Imaging Screening Outside Reference (11/11/2016 12:00 AM CDT) Impressions RAD_MAMMO_[facility] - 07/20/2023 1:53 PM CDT These images are for Reference purposes only and have not been reviewed by [facility] Radiology. There will be no report generated by a [facility] Radiologist. Narrative RAD_MAMMO_[facility] - 07/20/2023 1:53 PM CDT EXAMINATION: Images For Reference Purposes Only us Provider Transcribed Order IMG MAMMO PROCEDURES Final Result RAD_MAMMO_[facility] documented in this encounter Visit Diagnoses Not on filedocumented in this encounter
--- OUTSIDE RECORDS SUMMARY | 2019-05-19 | XMS_ITS | Encounter Summary ---
Author Organization [facility] Healthcare Address [address] [place] [address] Care Team Providers Care Industrial Coffee Grinder Name Role Phone Raul Dhillon MD Primary Care Provider Reason for Visit * Diagnostic Imaging (Routine) - Closed Specialty Diagnoses / Procedures Referred By Contac t Referred To Contact Procedures Breast Imaging Screening Outside Reference Transcribed Order, Provider Referral ID Status Reason Start Date Expiration Date Visits Re quested Visits Authorized [id number] Closed 06/25/2023 07/24/2024 1 1 Encounter Details Date Type Department Care Team (Late st Contact Info) Description 05/19/2019 Hospital Encounter [facility] [address] [place] [address] Social History Tobacco Use Types Packs/Day Years [...] on file Legal Sex Female 9:28 AM FOOD SERVICE ASSISTANT Gender Identity Not on file Sexual Orientation Not on file documented as of this encounter Functional Status * C.A.G.E. Question Answer Date of Assessment Author Have you ever felt the need to Cut down on your drinking? 0 06/12/2023 2:16 PM HESHAMT Courtney Israel RN Have people ever Annoyed yo u by criticizing your drinking? 0 06/12/2023 2:16 PM HESHAMT Courtney Soto RN Have you ever felt bad or Guilty about your drinking? 0 06/12/2023 2:16 PM CDT Courtney Fuchs RN Have you ever had a drink first thing in the morning to steady your nerves or get rid of a hangover? Eye federal aid coordinator? 0 06/12/2023 2:16 PM HESHAMT Courtney Israel RN CAGE SCORE: 2 or Greater = Positive 0 06/12/2023 2:16 PM HESHAMT Courtney Israel RN * Difference in Last [...] RN Ambulatory Aids 15 06/15/2023 9:56 AM HESHAMT Charanjit Walker RN Intravenous Therapy/Heparin/Saline Lock 20 [...] in the BMAT? Yes 06/15/2023 9:56 AM HESHAMT Charanjit Yeager RN BMAT Level Level 3 - Yellow 06/15/2023 9:56 AM CDT Charanjit Swift RN Level 3 Equipment Use assistive device such as cane/walker 06/14/2023 8:15 PM CDT Sudha Prabhakar, YESI * Question Answer Date of Assessment [...] (Sensory Perception/Moistur e) 06/15/2023 9:56 AM Charanjit Smart RN 2 Nurse Skin Assessment Sammie 06/12/2023 3:3 6 PM Courtney Pressley RN * Transdermal Patch Admission Assessment Question Answer Date of Assessment Author Transdermal Patch Assessment on Admission Not Present 06/12/2023 3:36 PM Courtney Pressley RN * AUDIT-C Score Answer Date of [...] Moreno Scale Used Moreno 06/12/2023 10:20 AM HESHAMT Ila Landa, YESI * Question Answer Date [...] Meal Eaten (%) 25 06/13/2023 9:30 AM HESHAMT Marcela Kirkpatrick RN * Fall Risk Interventions [...] Complete Daily Activities Yes 06/12/2023 2:16 PM Courtney Pressley, YESI Patient's Judgement Adequate to Safely Complete Daily Activities Yes 06/12/2023 2:16 PM CDT Courtney Israel RN Patient's Memory Adequate to Safely Complete Daily Activities Yes 06/12/2023 2:16 PM HESHAMT Courtney Israel RN Patient Able to Express Needs/Desires Yes 06/12/2023 2:16 PM HESHAMT Courtney Israel RN Dressing Independent 06/12/2023 2:16 PM CDT Courtney Marcus RN Grooming Independent 06/12/2023 2:16 PM CDT Courtney Marcus RN Feeding Independent 06/12/2023 2:16 PM CDT Courtney Marcus RN Bathing Independent 06/12/2023 2:16 PM HESHAMT Courtney Marcus RN Toileting Independent 06/12/2023 2:16 PM HESHAMT Courtney Marcus RN In/Out Bed Independent 06/12/2023 2:16 PM Courtney Anderson RN Walks in Home Independent 06/12/2023 2:16 PM CDT Courtney Kunz RN Weakness of Legs None 06/12/2023 2:16 PM HESHAMT Courtney Israel RN Weakness of Arms/Hands None 06/12/2023 2:16 [...] 1 06/12/2023 2:16 PM Courtney Farris RN CHILD CUSTODY EVALUATOR Evaluation Needed 2 06/12/2023 2:16 PM Courtney [...] Pressley RN Patient is in need of CHILD CUSTODY EVALUATOR Order: No CHILD CUSTODY EVALUATOR order needed from this assessment 06/12/2023 2:16 [...] 9:56 AM CDT Charanjit Yeager RN Neuro ([facility]) X 06/15/2023 9:56 AM CDT Courtney Israel RN * Question Answer Entry Date Author Neuro (MARK) WDL 06/12/2023 1:00 PM CDT Francisco Javier muhammad, Ila Law RN documented in this encounter Plan of Treatment Upcoming Encounters Date Type Department Care Team (Latest Contact Info) Description 04/27/2025 7:30 AM FOOD SERVICE ASSISTANT Hospital Encounter [facility] Operating Room [address] [place] [phone] Surinder Garcia MD [address] [facility] [address] [place] [id number] 04/27/2025 7:30 AM FOOD SERVICE ASSISTANT - 04/27/2025 10:12 AM FOOD SERVICE ASSISTANT Surgery [facility] Operating Room [address] [place] [phone] Surinder Garcia MD [address] [facility] [place], [place] [id number] ARTHROPLASTY TOTAL KNEE- Left Total Knee Arthroplasty Scheduled Procedures Name Priority Associated Diagnoses Date/Ti me ARTHROPLASTY TOTAL KNEE Primary osteoarthritis of left knee 04/27/2025 7:30 AM FOOD SERVICE ASSISTANT documented as of this encounter Procedures Procedure Name Priority Date/Time Associated Diagnosis Comments BREAST IMAGING MG SCREENING OUTSIDE REFERENCE Routine 05/19/2019 12:00 AM FOOD SERVICE ASSISTANT documented in this encounter Results * Breast Imaging Screening Outside Reference (05/19/2019 12:00 AM FOOD SERVICE ASSISTANT) Impressions RAD_MAMMO_[facility] - 06/25/2023 11:39 AM CDT These images are for Reference purposes only and have not been reviewed by [facility] Radiology. There will be no report generated by a [facility] Radiologist. Narrative RAD_MAMMO_[facility] - 06/25/2023 11:39 AM CDT EXAMINATION: Images For Reference Purposes Only us Provider Transcribed Order IMG MAMMO PROCEDURES Final Result RAD_MAMMO_[facility] documented in this encounter Visit Diagnoses Not on filedocumented in this encounter Care Teams Industrial Coffee Grinder Relationship Specialty Start Date End Date Raul Dhillon MD PCP - General Family Medicine 05/12/19 05/10/20 documented as of this encounter
--- OUTSIDE RECORDS SUMMARY | 2019-05-19 | XMS_ITS | Encounter Summary ---
Author Organization [facility] Healthcare Address [address] [place] [address] Care Team Providers Care Patch Sander Name Role Phone Raul Dhillon MD Primary Care Provider [phone] Reason for Visit * Diagnostic Imaging (Routine) - Closed Specialty Diagnoses / Procedures Referred By Contac t Referred To Contact Procedures Breast Imaging Screening Outside Reference Transcribed Order, Provider Referral ID Status Reason Start Date Expiration Date Visits Re quested Visits Authorized [id number] Closed 06/25/2023 07/24/2024 1 1 Encounter Details Date Type Department Care Team (Late st Contact Info) Description 05/19/2019 Hospital Encounter 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 Eye data coder operator? 0 06/12/2023 2:16 PM HESHAMT Courtney Israel [...] 1 06/12/2023 2:16 PM Courtney Farris RN ENVIRONMENTAL ENGINEERING MANAGER Evaluation Needed 2 06/12/2023 2:16 PM [...] Pressley RN Patient is in need of ENVIRONMENTAL ENGINEERING MANAGER Order: No ENVIRONMENTAL ENGINEERING MANAGER order needed from this assessment 06/12/2023 [...] 9:56 AM CDT Charanjit Yeager RN Neuro ([facility]) X 06/15/2023 9:56 AM CDT Courtney Israel RN * Question Answer Entry Date Author Neuro (MARK) WDL 06/12/2023 1:00 PM CDT Francisco Javier muhammad, Ila Law RN documented in this encounter Plan of Treatment Upcoming Encounters Date Type Department Care Team (Latest Contact Info) Description 04/27/2025 7:30 AM TOWER EXCAVATOR OPERATOR Hospital Encounter [facility] Operating Room [address] [place] [phone] Surinder Garcia MD [address] [facility] [address] [place] [phone] 04/27/2025 7:30 AM TOWER EXCAVATOR OPERATOR - 04/27/2025 10:12 AM TOWER EXCAVATOR OPERATOR Surgery [facility] Operating Room [address] [place] [phone] Surinder Garcia MD [address] [facility] [place], [place] [phone] ARTHROPLASTY TOTAL KNEE- Left Total Knee Arthroplasty Scheduled Procedures Name Priority Associated Diagnoses Date/Ti me ARTHROPLASTY TOTAL KNEE Primary osteoarthritis of left knee 04/27/2025 7:30 AM TOWER EXCAVATOR OPERATOR documented as of this encounter Procedures Procedure Name Priority Date/Time Associated Diagnosis Comments BREAST IMAGING MG SCREENING OUTSIDE REFERENCE Routine 05/19/2019 12:00 AM TOWER EXCAVATOR OPERATOR documented in this encounter Results * Breast Imaging Screening Outside Reference (05/19/2019 12:00 AM TOWER EXCAVATOR OPERATOR) Impressions RAD_MAMMO_[facility] - 06/25/2023 11:39 AM CDT These images are for Reference purposes only and have not been reviewed by [facility] Radiology. There will be no report generated by a [facility] Radiologist. Narrative RAD_MAMMO_[facility] - 06/25/2023 11:39 AM CDT EXAMINATION: Images For Reference Purposes Only us Provider Transcribed Order IMG MAMMO PROCEDURES Final Result RAD_MAMMO_[facility] documented in this encounter Visit Diagnoses Not on filedocumented in this encounter Care Teams Patch Sander Relationship Specialty Start Date End Date Raul Dhillon MD PCP - General Family Medicine 05/12/19 05/10/20 documented as of this encounter
--- OUTSIDE RECORDS SUMMARY | 2024-06-15 05:45 | XMS_ITS ---
Author Organization [facility] [employer] [facility] Address [address] [facility] [address] [facility] [address] [place] [address] Care Team Providers Care Airway Controller Name Role Phone Ameena Negrete [phone] REASON FOR VISIT R/S late notice- pt is not feeling well Social History Sex Assigned At : Social History Observation Description Sex Assigned At Female Encounters Encounter Location Date Provider Diagnosis [facility] [employer] [facility] [address] [facility] [address] [place] [address] 06/15/2024 Ameena Negrete Plan Of Treatment Next Appt Details Provider Name:Gail Gerardo Chambersjelly gerardo, 04/18/2025 01:30:00 PM, [address], [address], [place], [address], Progress Notes * ROSEMARY NGUYEN MDOB: [birth year] (59 yo F)Acc No.[id number]:06/15/2024 Patient: ROSEMARY AGARWAL Provider: Eron Negrete :1965 A ge:59 Y S ex:Female Date:06/15/2024 Address:[address] [place], [place] [id number] Subjective: * Chief Complaints: * R /S late notice- pt is not feeling well * Electronic signature of Wilson Negrete on 02/25/2025 at 04:44 PM LINE STAKER Sign off status: Pending * Provider: Eron Negrete Date: 0 06/15/2024 Generated for Ritu casarez/Flavia/Bibi on: 1 04/28/2024 04:44 PM LINE STAKER
--- OUTSIDE RECORDS SUMMARY | 2024-08-08 07:15 | XMS_ITS ---
Author Organization [facility] Address [address] [facility] [address] [address] Care Team Providers Care Pattern Assembler Name Role Phone Ameena Negrete [phone] REASON FOR VISIT Pt still not feeling well Social History Sex Assigned At : Social History Observation Description Sex Assigned At Female Encounters Encounter Location Date Provider Diagnosis [facility] [employer] [place] [address] [facility] [address] [address] 08/08/2024 Ameena Negrete Plan Of Treatment Next Appt Details Provider Name:Gail alas, 04/18/2025 01:30:00 PM, [facility] [facility] [address], [facility] [address], [place], [address], Progress Notes * ROSEMARY NGUYEN MDOB: [birth year] (59 yo F)Acc No.[id number]:08/08/2024 Patient: ROSEMARY AGARWAL Provider: Eron Negrete :1965 A ge:59 Y S ex:Female Date:08/08/2024 Address:[address] [place], [place] [id number] Subjective: * Chief Complaints: * P t still not feeling well Billing Information: * Procedure Codes: * Electronic signature of Wilson Negrete on 02/25/2025 at 04:44 PM BUTTON AND BUCKLE MAKER Sign off status: Pending * Provider: Eron Negrete Date: 0 08/08/2024 Generated for Ritu casarez/Flavia/Bibi on: 1 04/28/2024 04:44 PM BUTTON AND BUCKLE MAKER
--- OUTSIDE RECORDS SUMMARY | 2025-01-09 08:00 | XMS_ITS ---
Author Organization [facility] [facility] Address [address] [facility] [address] [address] [place] [address] Care Team Providers Care Skiver Operator Name Role Phone Ameena Negrete Unavailable [phone] REASON FOR VISIT R/S pt is not feeling well. Social History Sex Assigned At : Social History Observation Description Sex Assigned At Female Encounters Encounter Location Date Provider Diagnosis [facility] [employer] [facility] [address] [facility] [address] [place] [address] 01/09/2025 Ameena Negrete Plan Of Treatment Next Appt Details Provider Name:Gail Gerardo Chambersjelly gerardo, 04/18/2025 01:30:00 PM, [address], [facility] [address] [address], [place], [address], Progress Notes * ROSEMARY NGUYEN MDOB: [birth year] (59 yo F)Acc No.[id number]:01/09/2025 Patient: ROSEMARY AGARWAL Provider: Eron Negrete :1965 A ge:59 Y S ex:Female Date:01/09/2025 Address:[address] [place], [place] [address] Subjective: * Chief Complaints: * R /S pt is not feeling well. Billing Information: * Procedure Codes: * Electronic signature of Wilson Negrete on 02/25/2025 at 04:44 PM EYEGLASS MAKER Sign off status: Pending * Provider: Eron Negrete Date: Generated for Rtiu casarez/Flavia/Lilyitting on: 1 04/28/2024 04:44 PM EYEGLASS MAKER
--- OUTSIDE RECORDS SUMMARY | 2025-01-16 07:45 | XMS_ITS ---
Author Organization [facility] [employer] Address [address] [address] Care Team Providers Care Dulser Name Role Phone BrandenRuben guamanlinda Meier [phone] REASON FOR VISIT follow-up Social History Sex Assigned At : Social History Observation Description Sex Assigned At Female Encounters Encounter Location Date Provider Diagnosis [facility] [employer] [address] [address] 01/16/2025 Ameena Negrete Plan Of Treatment Next Appt Details Provider Name:Gail R Reyesjelly evette, 04/18/2025 01:30:00 PM, [address], [place] [address], [place], [address], Progress Notes * ROSEMARY NGUYEN MDOB: [birth year] (59 yo F)Acc No.[id number]:01/16/2025 Patient: ROSEMARY AGARWAL Provider: Eron Negrete :1965 A ge:59 Y S ex:Female Date:01/16/2025 Address:[address] [place], [place] [address] Subjective: * Chief Complaints: * F ollow-up Billing Information: * Procedure Codes: * Electronic signature of Wilson Negrete on 02/25/2025 at 04:45 PM STRETCHER HELPER Sign off status: Pending * Provider: Eron Negrete Date: Generated for Ritu casarez/Flavia/Bibi on: 1 04/28/2024 04:45 PM STRETCHER HELPER
--- NOTE | ~2025-02-25 | XR_ITS ---
EXAMINATION: XR knee LT min 4V, 02/25/2025 17:52 OPTO MECHANICAL TECHNICIAN HISTORY: Fall with Swelling COMPARISON: No comparisons available. Findings: No acute fracture or malalignment. Moderate to severe tricompartmental degenerative changes with small joint effusion Soft tissues unremarkable. Impression: No acute fracture or malalignment. Reviewed, dictated and finalized at location P. MECHANICAL TECHNICIAN Impression: No acute fracture or malalignment.
[2025-02-25 16:43] VITALS: BP 128/61; PULSE 61; RESP 17; TEMP 36.4; O2SAT 96
--- OUTSIDE RECORDS SUMMARY | 2025-02-25 16:44 | XMS_ITS | Clinical Summary ---
Author Organization [facility] [employer] Address [address] [place] [address] Care Team Providers Care Motor Coach Chauffeur Name Role Phone Unavailable Primary Care Provider Unavailabl e Source Comments [facility],non-owned Affiliates and Associated Physician Practices is amultiple site organization consisting of ambulatory clinics and hospital sitesin [place], [place] and [place]. This disclosure is being madepursuant to the Care Everywhere program and may not contain all information available regarding this patient. Last updated 17.[facility] [employer] Allergies Active Allergy Reactions Criticality Noted Date [...] Indications: anxiety 07/18/19 Active Vitamin D, Ergocalciferol, 71311 units CAPSIndications: Vitamin D Deficiency Take 50,000 [...] on file Legal Sex Female 5:01 AM GARBAGE PERSON Gender Identity Not on file Sexual Orientation [...] SCREENING 1965 LIPID TESTING 1965 MAMMOGRAM 1965 HIV SCREENING 1981 HEPATITIS C SCREENING 05/28/1984 DTAP/TDAP/TD VACCINES (1 - Tdap) 1985 HEPATITIS B VACCINE (1 of 3 - 19+ 3-dose series) 1985 Cervical Cancer Screening 06/03/1987 PAP SMEAR 06/03/1987 PAP with HPV 1996 PNEUMOCOCCAL VACCINE 50+ (1 of 1 - PCV) 2016 ZOSTER VACCINE (1 of 2) 2016 DEPRESSION SCREENING 03/23/2024 MEDICARE AWV CALENDAR YEAR 2024 COVID-19 VACCINE (1 - 2024-2 6 season) 2024 INFLUENZA VACCINE (#1) 2024 8, 01/01/2017 HIB VACCINE Aged Out No longer [...] patient's age to complete this topic Insurance [facility] MANAGED MEDICARE ADV
--- OUTSIDE RECORDS SUMMARY | 2025-02-25 16:44 | XMS_ITS | Clinical Summary ---
Author Organization [facility] Address [facility] [place] [address] Care Team Providers Care Leasing Director Name Role Phone Melissa Rojas LEASING ASSOCIATE Primary Care Provider [phone] Allergies Active Allergy Reactions Criticality Noted Date Comments Aspirin Stomach upset,Vomiting Low 01/23/2016 Ibuprofen Vomiting Low 01/23/2016 Gastric bypass Latex Rash Medium Nsaids (Non-Steroidal Anti-Inflammatory Drug) Nausea & Vomiting Medium 06/06/2021 Shrimp Anaphylaxis High 04/20/2019 Tramadol Stomach upset [...] bedtime 01/27/20 23 Active mv,kal,iron,mn/fo lic acid/chol (LFKT-GGCD-HMULE, PABA, ORAL)Indications: supplement Take 2 tablet/chew tab by mouth every evening Active furosemide (LASIX) 40 mg tabletIndications :Edema Take 1 tablet (40 mg total) by mouth as needed (swelling) Active acetaminophen (TYLENOL) 325 mg tabletIndications :Pain Take 2 tablets (650 mg total) by mouth every 6 (six) hours 90 tablet 1 06/15/19 24 Active Additional Information Patient not taking.Reported on 01/23/2025 senna-docusate (PERICOLACE) 8.6-50 mgIndications:con stipation Take 2 tablets by mouth 2 (two) times a day 60 tablet 1 06/15/19 24 Active Additional Information Patient not taking.Reported on 01/23/2025 ergocalciferol (VITAMIN D) 50,000 unit capsule TAKE 1 CAPSULE BY MOUTH ONE TIME PER WEEK 12 capsule 1 07/03/19 24 Active Additional Information Patient not taking.Reported on 01/23/2025 oxyCODONE (ROXICODONE) 5 mg immediate release tabletIndications :Pain Take 1-2 tablets (5-10 mg total) by mouth every 6 (six) hours as needed for pain 42 tablet 07/13/19 24 Active Additional Information Patient not taking.Reported on 01/23/2025 oxyCODONE-acetami nophen (PERCOCET) 5-325 mg per tablet TAKE 1 TABLET BY MOUTH EVERY 6 HOURS NEEDED FOR 30 DAYS 01/06/20 25 Active QUEtiapine (SEROquel) 100 mg tablet 01/17/20 25 Active atorvastatin (LIPITOR) 20 mg tablet Take 1 tablet (20 mg total) by mouth every morning 12/12/19 25 Active mupirocin (BACTROBAN) 2 % ointment Place small amount of ointment in each nostril with a q-tip twice daily for 5 days prior to surgery 22 g 01/24/20 25 Active Active Problems Problem Noted Date Diagnosed Date Primary osteoarthritis of left knee 01/27/2025 Chronic pain of right knee 06/12/2023 Knee [...] (12/13/2021): Added automatically from request for surgery [id number] Impingement syndrome of left shoulder 12/13/2021 Overview (12/13/2021): Added automatically from request for surgery [id number] Biceps tendinitis of left upper extremity 2021 Overview (12/13/2021): Added automatically from request for surgery [id number] Tear of left rotator cuff 09/25/2021 Pain in joint of right shoulder 07/24/2021 Primary osteoarthritis of right knee 06/11/2021 Overview (06/11/2021): Added automatically from request for surgery [id number] History of bilateral hip replacements 01/29/2018 Right knee pain 01/29/2018 Tobacco dependence syndrome 01/23/2016 Other specified symptoms and signs involving the circulatory and respiratory systems 01/23/2016 Hypertension 01/23/2016 Asthma 01/23/2016 Localized adiposity 01/21/2012 Anemia 03/10/2011 Encounters Date Type Department Care Team Description 02/14/2025 Telephone [facility] [address] [facility] Advanced Medicine [address]th [place] [address] [place] [address] Surinder Garcia MD Reschedule Knee Surgery 01/23/2025 2:10 PM CLINICAL TRIALS MANAGER Office Visit [facility] [address] [facility] 6th [place] [address] [place] [id number] Surinder Garcia MD Total knee replacement status, right (Primary Dx); Primary osteoarthritis of left knee 01/23/2025 1:30 PM CLINICAL TRIALS MANAGER - 01/23/2025 11:59 PM CLINICAL TRIALS MANAGER Hospital Encounter [facility] [address] [place] [address] Total knee replacement status, right; Primary osteoarthritis of left knee Discharge Disposition: Discharge to home or self care from Last 3 Months Immunizations Immunization Administration Dates Next Due Influenza, Quadrivalent, Split, Intramuscular Influenza, Unspecified 01/01/2017 Surgical History Surgery Date Site/Laterality Comments [place] GASTRIC RSTCV W/BYP W/SHORT LIMB 150 CM/< 03/23/2005 - 03/22/2006 Gastric Surgery For Morbid Obesity Bypass With Ellen-en-Y - 2005 (Added by TW Conv) [place] RPR UMBILICAL HERNIA < 5 YRS REDUCIBLE 03/23/2005 - 03/22/2006 Umbilical Hernia Repair - 2005 (Added by TW Conv) CHOLECYSTECTOMY 03/23/1999 - 03/22/2000 COLONOSCOPY 03/23/2016 [...] on file Legal Sex Female 9:28 AM CLINICAL TRIALS MANAGER Gender Identity Not on file Sexual Orientation [...] 6:07 AM CDT Height 167.6 cm (5' 6) 06/12/2023 6:07 AM CDT Body Mass Index 37.12 06/12/2023 6:07 AM CDT Plan of Treatment Upcoming Encounters Date Type Department Care Team (Latest Contact Info) Description 04/27/2025 7:30 AM CLINICAL TRIALS MANAGER Hospital Encounter [facility] Operating Room [address] [place] [address] Surinder Garcia MD [address] [facility] [place] [address] 04/27/2025 7:30 AM CLINICAL TRIALS MANAGER - 04/27/2025 10:12 AM CLINICAL TRIALS MANAGER Surgery [facility] Operating Room [address] [place] [id number] Surinder Garcia MD [address] [facility] [place] [address] ARTHROPLASTY TOTAL KNEE- Left Total Knee Arthroplasty Scheduled Procedures Name Priority Associated Diagnoses Date/Ti me ARTHROPLASTY TOTAL KNEE Primary osteoarthritis of left knee 04/27/2025 7:30 AM CLINICAL TRIALS MANAGER Health Maintenance Due Date Last Done Comments Breast Cancer Screening-Mammogram 1966 Cervical Cancer Screening 1966 Colon Cancer Screening-Colonoscopy 1966 Depression Screening 1966 Hepatitis C Screening 1966 DTaP/Tdap/Td Vaccine (1 - Tdap) 1977 Hepatitis B Screening 1984 Regular Well Visit/Exam 18-64 1984 Pneumococcal vaccine <65 (1 of 2 - PCV) 1985 Zoster Vaccine (1 of 2) 1985 Lung Cancer Screening 2016 Covid-19 Vaccine (5 - 2024-2 6 season) 2024 01/25/2021, 05/25/2020, 04/30/2020, Additional history exists Influenza Vaccine (#1) 2024 02/20/2018, 2016 Goals Goal Patient Goal Type Associated Problems Recent Progress Patient-Stated? Author Autogenera karol Goal Care Plan Autogenerated Problem No Ameena Turner Medical Devices Implanted Type Area Jewelry Making Instructor Device Identifier Shelf Expiration Date Model / Serial / Lot Hip Replacement Bilateral: Hip [employer] Swivelock C 4.75mm 19.1mm Closed Eyelet Vent [place] Suture Ar-2324bcc - [id number] Implanted:Qty: 1 on 01/01/2022 by Kade Rivera MD at [facility] [employer] [id number] 09/19/2025 AR-2324BC C / / [id number] [employer] Swivelock C 4.75mm 19.1mm Closed Eyelet Vent [place] Suture Ar-2324bcc - [id number] Implanted:Qty: 1 on 10/01/2022 by Kade Rivera MD at [facility] Right: Shoulder [employer] [id number] 05/20/2026 AR-2324BCC / / [id number] [employer] Baseplate Tibial Knee Cemented Right Fixed Stemmed Persona Size E Tivanium [id number] - [id number] Implanted:Qty: 1 on 06/12/2023 by Surinder Garcai MD at [facility] Right: Knee [employer] [id number] 03/07/2033 [id number] / / [id number] [employer] Persona 14mm 30+ Mm Knee Tibia Taper Extension Stem [id number] - [id number] Implanted:Qty: 1 on 06/12/2023 by Surinder Garcia MD at [facility] Right: Knee [employer] [id number] 06/14/2032 [id number] / / [id number] [employer] Persona Cemented Posterior Stabilize Knee Right 8 Standard [id number] - [id number] Implanted:Qty: 1 on 06/12/2023 by Surinder Garcia MD at [facility] Right: Knee [employer] [id number] 08/17/2030 [id number] / / [id number] [employer] Simplex P Full Dose Radiopaque Preblend Cement Bone Tobramycin 6197-9-001 - [id number] Implanted:Qty: 2 on 06/12/2023 by Surinder Garcia MD at [facility] Right: Knee [employer] 08/20/2024 [id number] / / [id number] [employer] Insert Tibial Knee Vitamin E Fixed Rt Persona Vivacit E 10mm Size 6 9 E F Polyethylene [id number] - [id number] Implanted:Qty: 1 on 06/12/2023 by Surinder Garcia MD at [facility] Right: Knee [employer] [id number] 09/05/2027 [id number] / / [id number] Procedures Procedure Name Priority Date/Time Associated Diagnosis Comments XR KNEE LEFT 3 VIEWS Schedule Routine, Read Routine (OP Routine) 01/23/2025 2:11 PM CLINICAL TRIALS MANAGER Total knee replacement status, right Primary osteoarthritis of left knee XR KNEE RIGHT 3 VIEWS Schedule Routine, Read Routine (OP Routine) 01/23/2025 2:11 PM CLINICAL TRIALS MANAGER Total knee replacement status, right Primary osteoarthritis of left knee from Last 3 Months Results * XR Knee Right 3 Views (01/23/2025 2:11 PM CLINICAL TRIALS MANAGER) Anatomical Region Laterality Modality Lower Extremities, Knee Right Computed Radiography 01/23/2025 2:23 PM CLINICAL TRIALS MANAGER Impressions 01/23/2025 2:23 PM CLINICAL TRIALS MANAGER 1. Severe patellofemoral predominant, tricompartmental left knee osteoarthritis. 2. Two component right knee arthroplasty in unchanged, near anatomic position. Electronically signed by: Fernando Damian M.D. Narrative 01/23/2025 2:23 PM CLINICAL TRIALS MANAGER EXAMINATION: XR KNEE RIGHT 3 VIEWS, XR KNEE LEFT 3 VIEWS HISTORY: Bilateral knee osteoarthritis FINDINGS: 3 view examinations of both knees are compared with a study from 10/15/2023. On the right, there is an unchanged two component knee arthroplasty in near-anatomic position, with a small joint effusion. There is no fracture or component migration. On the left, there is no change in severe patellofemoral predominant, tricompartmental knee osteoarthritis. There is a small joint effusion and suprapatellar loose body. No fracture is present. Procedure Note Fernando Damian MD - 01/23/2025 EXAMINATION: XR KNEE RIGHT 3 VIEWS, XR KNEE LEFT 3 VIEWS HISTORY: Bilateral knee osteoarthritis FINDINGS: 3 view examinations of both knees are compared with a study from 10/15/2023. On the right, there is an unchanged two component knee arthroplasty in near-anatomic position, with a small joint effusion. There is no fracture or component migration. On the left, there is no change in severe patellofemoral predominant, tricompartmental knee osteoarthritis. There is a small joint effusion and suprapatellar loose body. No fracture is present. IMPRESSION: 1. Severe patellofemoral predominant, tricompartmental left knee osteoarthritis. 2. Two component right knee arthroplasty in unchanged, near anatomic position. Electronically signed by: Fernando Damian M.D. Surinder Garcia MD IMG XR PROCEDURES Final Re sult * XR Knee Left 3 Views (01/23/2025 2:11 PM CLINICAL TRIALS MANAGER) Anatomical Region Laterality Modality Lower Extremities, Knee Left Computed Radiography 01/23/2025 2:23 PM CLINICAL TRIALS MANAGER Impressions 01/23/2025 2:23 PM CLINICAL TRIALS MANAGER 1. Severe patellofemoral predominant, tricompartmental left knee osteoarthritis. 2. Two component right knee arthroplasty in unchanged, near anatomic position. Electronically signed by: Fernando Damian M.D. Narrative 01/23/2025 2:23 PM CLINICAL TRIALS MANAGER EXAMINATION: XR KNEE RIGHT 3 VIEWS, XR KNEE LEFT 3 VIEWS HISTORY: Bilateral knee osteoarthritis FINDINGS: 3 view examinations of both knees are compared with a study from 10/15/2023. On the right, there is an unchanged two component knee arthroplasty in near-anatomic position, with a small joint effusion. There is no fracture or component migration. On the left, there is no change in severe patellofemoral predominant, tricompartmental knee osteoarthritis. There is a small joint effusion and suprapatellar loose body. No fracture is present. Procedure Note Fernando Damian MD - 01/23/2025 EXAMINATION: XR KNEE RIGHT 3 VIEWS, XR KNEE LEFT 3 VIEWS HISTORY: Bilateral knee osteoarthritis FINDINGS: 3 view examinations of both knees are compared with a study from 10/15/2023. On the right, there is an unchanged two component knee arthroplasty in near-anatomic position, with a small joint effusion. There is no fracture or component migration. On the left, there is no change in severe patellofemoral predominant, tricompartmental knee osteoarthritis. There is a small joint effusion and suprapatellar loose body. No fracture is present. IMPRESSION: 1. Severe patellofemoral predominant, tricompartmental left knee osteoarthritis. 2. Two component right knee arthroplasty in unchanged, near anatomic position. Electronically signed by: Fernando Damian M.D. Surinder Garcia MD IMG XR PROCEDURES Final Re sult from Last 3 Months Additional Health Concerns Active Problems Noted Date Diagnosed Date Autogenerated Problem 02/22/2025 Insurance IDPA [facility] MEDICARE ADVANTAGE IDPA [facility] MEDICARE ADVANTAGE [facility] MEDICARE ADVANTAGE Advance Directives For more information, please contact: [phone] * Full Code (Latest Code Status on File) Date Activated Date Inactivated Comments 06/12/2023 2:14 PM 06/15/2023 4:51 PM Care Teams Leasing Director Relationship Specialty Start Date End Date Melissa Rojas NP PCP - General Nurse Practitioner 11/13/21
--- OUTSIDE RECORDS SUMMARY | 2025-02-25 16:45 | XMS_ITS | Encounter Summary ---
Author Organization [facility] Address [address] [place] [address] Phone Care Team Providers Care Pharmacy Retail Support Specialist Name Role Phone Melissa Rojas BLENDER OPERATOR Primary Care Provider [phone] Susan Kirkpatrick UNIX ADMINISTRATOR Unavailable [phone] Encounter Details Date Type Department Care Team (Late st Contact Info) Description 04/01/2022 Orders Only [facility] Medicine Orthopaedic Surgery [address] [facility] Advanced Medicine 12th [place] [address] [place] [address] Kade Rivera MD [address] [facility] [address] [place], [place] [id number] Status post orthopedic surgery, follow-up exam (Primary [...] on file Legal Sex Female 9:28 AM SOLAR LAB TECHNICIAN Gender Identity Not on file Sexual Orientation Not on file documented as of this encounter Plan of Treatment Upcoming Encounters Date Type Department Care Team (Latest Contact Info) Description 04/27/2025 7:30 AM SOLAR LAB TECHNICIAN Hospital Encounter [facility] Operating Room [address] [place] [id number] Surinder Garcia MD [address] [facility] [place], [place] [id number] 04/27/2025 7:30 AM SOLAR LAB TECHNICIAN - 04/27/2025 10:12 AM SOLAR LAB TECHNICIAN Surgery [facility] Operating Room [address] [place] [address] Surinder Garcia MD [address] [facility] [place], [place] [id number] ARTHROPLASTY TOTAL KNEE- Left Total Knee Arthroplasty Scheduled Procedures Name Priority Associated Diagnoses Date/Ti me ARTHROPLASTY TOTAL KNEE Primary osteoarthritis of left knee 04/27/2025 7:30 AM SOLAR LAB TECHNICIAN documented as of this encounter Visit Diagnoses Diagnosis Status post orthopedic surgery, follow-up exam- Primary S/P right rotator cuff repair Primary osteoarthritis of left knee documented in this encounter Care Teams Pharmacy Retail Support Specialist Relationship Specialty Start Date End Date Melissa Rojas NP PCP - General Nurse Practitioner 11/13/21 Susan Kirkpatrick LCSW [address] [facility] ([facility] Mailstop [phone] [place] [address] SHOP Outpatient Wastewater Plant Operator 06/16/23 06/18/23 documented as of this encounter
--- OUTSIDE RECORDS SUMMARY | 2025-02-25 16:45 | XMS_ITS | Encounter Summary ---
Author Organization [facility] Address [address] [place] [address] Care Team Providers Care Television Writer Name Role Phone Melissa Rojas HEAD BANQUET WAITRESS Primary Care Provider [phone] Susan Kirkpatrick SHAREPOINT DEVELOPER Unavailable [phone] Encounter Details Date Type Department Care Team (Late st Contact Info) Description 10/04/2022 Documentation [facility] [address] [facility] Advanced Medicine [address] [place] [address] Telly Herrmann MD [address] [place] [address] Social History Tobacco Use Types Packs/Day Years [...] on file Legal Sex Female 9:28 AM MAKE UP ARTIST Gender Identity Not on file Sexual Orientation Not on file documented as of this encounter Plan of Treatment Upcoming Encounters Date Type Department Care Team (Latest Contact Info) Description 04/27/2025 7:30 AM MAKE UP ARTIST Hospital Encounter [facility] Operating Room [address] [place] [address] Surinder Garcia MD [address] [facility] [place] [address] 04/27/2025 7:30 AM MAKE UP ARTIST - 04/27/2025 10:12 AM MAKE UP ARTIST Surgery [facility] Operating Room [address] [place] [address] Surinder Garcia MD [address] [facility] [place] [address] ARTHROPLASTY TOTAL KNEE- Left Total Knee Arthroplasty Scheduled Procedures Name Priority Associated Diagnoses Date/Ti me ARTHROPLASTY TOTAL KNEE Primary osteoarthritis of left knee 04/27/2025 7:30 AM MAKE UP ARTIST documented as of this encounter Visit Diagnoses Not on filedocumented in this encounter Care Teams Television Writer Relationship Specialty Start Date End Date Melissa Rojas NP PCP - General Nurse Practitioner 11/13/21 Susan Kirkpatrick LCSW [address] [facility] ([facility]) Mailstop [phone] [place] [address] SHOP Outpatient Air Quality Engineer 06/16/23 06/18/23 documented as of this encounter
--- OUTSIDE RECORDS SUMMARY | 2025-02-25 16:45 | XMS_ITS | Patient Health Record ---
Author Organization [facility] [employer] Address [address] [place] [address] Care Team Providers Care Golf [employer] Maker Name Role Phone Ameena Negrete Unavailable [phone] DeandreCee weir Unavailable [phone] Gail Carlos Unavailable [phone] Allergies Allergen (clinical drug ingredient) Drug/Non Drug Allergy documented on EMR Reaction Allergy Type Onset Date Status aspirin Aspirin Unknown Drug Allergy 04/20/2023 Active Reason For Referral No Information Medications Medication SIG (Take, Route, Frequency, Duration) Notes Start Date End Date Status Atorvastatin Calcium 20 MG Tablet TAKE 1 TABLET BY MOUTH IN THE MORNING Oral; Duration: 90 Days Active Pantoprazole Sodium 40 MG Tablet Delayed Release TAKE 1 TABLET BY MOUTH DAILY Oral; Duration: 90 Days Active Zolpidem Tartrate 10 MG Tablet Oral; Duration: 30 Days Active Fluticasone Propionate 50 MCG/ACT Suspension SHAKE LIQUID AND USE 2 SPRAYS IN EACH NOSTRIL DAILY Nasal; Duration: 30 Days Active oxyCODONE-Acetaminophen 5-325 MG Tablet TAKE 1 TABLET BY MOUTH EVERY 6 HOURS NEEDED MUST LAST 30 DAYS Oral; Duration: 30 Days Active Albuterol Sulfate HFA 108 (90 Base) MCG/ACT Aerosol Solution INHALE 1 PUFF BY MOUTH EVERY 6 HOURS NEEDED Inhalation; Duration: 50 Days Active QUEtiapine Fumarate 300 MG Tablet 1 tablet at bedtime Oral at bedtime; Duration: 30 days 11/24/2024 Active QUEtiapine Fumarate 100 MG Tablet 1 tablet every morning Orally Once a day; Duration: 30 days 11/24/2024 Active DULoxetine HCl 60 MG Capsule Delayed Release Particles 1 capsule Orally Once a day; Duration: 30 days Active WIXELA INHUB 250 MCG-50 MCG/DOSE POWDER FOR INHALATION *Reorder from bulletn.TrueFacet for eRx and Interaction Alerts* 04/20/2023 Active hydroCHLOROthiazide 12.5 MG Capsule Oral 04/20/2023 Active hydrOXYzine HCl 25 MG Tablet 1 tablet Oral three times a day; Duration: 30 days As needed 11/24/2024 Active Sertraline HCl 100 MG Tablet TAKE 1 AND 1/2 TABLETS BY MOUTH DAILY; Duration: 30 Not-Taking hydrOXYzine HCl 25 MG Tablet TAKE 1 TABLET BY MOUTH THREE TIMES DAILY NEEDED; Duration: 90 Active Immunizations Vaccine Route Administration Date Status [...] History Observation Description Sex Assigned At Female Social History Miscellaneous: Social Info Question Answer Notes Safety issues: Do you feel safe at home? Yes Household: Social Info Question Answer Notes Household Marital status: single Number of adults in household: 1 Drug/Alcohol: Social Info Question Answer Notes Drugs Have you used drugs other than those for medical reasons in the past 12 months? Yes Marijuana? Yes Tobacco Use: Social Info Question Answer Notes Tobacco Control (Standard) Tobacco use: Current smoker How many cigarettes a day do you smoke? 6-10 Additional Details Category Social Info Options Details Miscellaneous: Occupation: on disability Migrated Social History Migrated Social History Alcohol Intake: None 06/27/2021,Tobacco Years: Current every day smoker 06/27/2021,Smoking Status: 10 04/20/2023 Drug/Alcohol: Do you drink alcohol? No Section Notes: Lives alone in [facility], no children, 7 siblings, has been on disability for a long time. Lives alone in [facility], no children, 7 siblings, has been on disability for a long time. Lives alone in [place], no children, 7 siblings, has been on disability for a long time. Occupation: Does not work Living situation: Lives alone Problems Problem Type SNOMED Code ICD Code Onset Dates Problem Status W/U Status Risk Notes Problem Schizoaffective disorder, bipolar type (80648715) Schizoaffective disorder, bipolar type (F25.0) Active confirmed Problem Generalized anxiety disorder (18381598) Generalized anxiety disorder (F41.1) Active confirmed Problem Primary insomnia (9581987) Primary insomnia (F51.01) Active confirmed Problem Insomnia (830753519) Insomnia, unspecified (G47.00) Active confirmed Problem Obstructive sleep apnea syndrome (72018040) KADEN (obstructive sleep apnea) (G47.33) Active confirmed Problem Grief (895321244) Grief (F43.21) Active confirm ed Problem Tobacco use (286477076) Nicotine use (Z72.0) Active confirmed Problem Essential hypertension (01727097) Benign essential HTN (I10) Active confirmed Vital Signs Heart Rate 73 /min 01/16/2025 Height-cm 172.72 cm 01/16/2025 Blood pressure diastolic 74 mm Hg 01/16/2025 Weight-kg 116.12 kg 01/16/2025 Height 68.00 in 01/16/2025 Blood pressure systolic 113 mm Hg 01/16/2025 Weight 256 lbs 01/16/2025 BMI 38.92 kg/m2 01/16/2025 Encounters Encounter Location Date Provider Diagnosis [employer] [place] [address] [facility] [address] [address] 05/18/2024 Ameena Negrete Schizoaffective disorder, bipolar type F25.0 ; Generalized anxiety disorder F41.1 ; Primary insomnia F51.01 ; Nicotine use Z72.0 and Benign essential HTN I10 [employer] [place] [address] [facility] [address] [address] 06/20/2024 Ameena Negrete Generalized anxiety disorder F41.1 ; Schizoaffective disorder, bipolar type F25.0 ; Primary insomnia F51.01 ; Nicotine use Z72.0 ; Benign essential HTN I10 and Encounter for screening for depression Z13.31 [facility] [address] [place] [address] 08/16/2024 Ameena Negrete Schizoaffective disorder, bipolar type F25.0 ; Generalized anxiety disorder F41.1 ; Primary insomnia F51.01 ; Nicotine use Z72.0 ; KADEN (obstructive sleep apnea) G47.33 ; Benign essential HTN I10 ; Encounter for screening for cardiovascular disorders Z13.6 and Encounter for screening for depression Z13.31 [place] [address] [facility] [address] [place] [address] 11/24/2024 Ameena Negrete Schizoaffective disorder, bipolar type F25.0 ; Generalized anxiety disorder F41.1 ; Primary insomnia F51.01 and Grief F43.21 [place] [address] [facility] [address] [place] [address] 01/04/2025 Ameena Negrete [place] [address] [address] 01/16/2025 Gail Carlos Generalized anxiety disorder F41.1 ; Insomnia, unspecified G47.00 and Grief F43.21 [place] [address] [facility] [address] [place] [address] 04/25/2024 Thena Deandre Schizoaffective disorder, bipolar type F25.0 [place] [address] [facility] [address] [place] [address] 05/10/2024 Thena Deandre Schizoaffective disorder, bipolar type F25.0 [place] [address] [facility] [address] [place] [address] 10/12/2024 Ameena Negrete Generalized anxiety disorder F41.1 [place] [address] [place] [address] 11/24/2024 Ameena Negrete [place] [address] [facility] [address] [place] [address] 12/09/2024 Ameena Negrete Generalized anxiety disorder F41.1 Assessments Encounter Date Diagnosis (ICD Code) Assessment Notes Treatment Notes Treatment Clinical Notes Section Notes 04/25/2024 Schizoaffective disorder, bipolar type (ICD-10 - [...] and consider further dose adjustments if needed 08/16/2024 Schizoaffective disorder, bipolar type (ICD-10 - F25.0) 08/16/2024 Generalized anxiety disorder (ICD-10 - F41.1) 10/12/2024 Generalized anxiety disorder (ICD-10 - F41.1) [employer] Response got Denied on 2024-11-24 13:49:20 for 'DULoxetine HCl 60 MG Capsule Delayed Release Particles'Pha rmacy Notes: Some or all of Rx dispensed; Last fill:10/16/24 11/24/2024 Schizoaffective disorder, bipolar type (ICD-10 - F25.0) 11/24/2024 Generalized anxiety disorder (ICD-10 - F41.1) 12/09/2024 Generalized anxiety disorder (ICD-10 - F41.1) 01/16/2025 Generalized anxiety disorder (ICD-10 - F41.1) Anxiety described as 'OK' and under control. Hydroxyzine 25 mg taken two or three times a day as needed for anxiety. - Continue Hydroxyzine as needed for anxiety. 01/16/2025 Insomnia, unspecified (ICD-10 - G47.00) Sleeping only three hours per night. Continues Ambien use for insomnia. - Continue Ambien for insomnia. 01/16/2025 Grief (ICD-10 - F43.21) Mother October; ongoing emotional difficulty. 11/24/2024 Primary insomnia (ICD-10 - F51.01) on ambien per PCP 08/16/2024 Primary insomnia (ICD-10 - F51.01) on ambien per PCP 06/20/2024 Primary insomnia (ICD-10 - F51.01) Schizoaffective [...] increased duloxetine dose and overall well-being 05/18/2024 Nicotine use (ICD-10 - Z72.0) Anxiety [...] to increased duloxetine dose and overall well-being 11/24/2024 Grief (ICD-10 - F43.21) 06/20/2024 Nicotine use (ICD-10 - Z72.0) Schizoaffective [...] and consider further dose adjustments if needed 08/16/2024 Nicotine use (ICD-10 - Z72.0) 06/20/2024 Benign essential HTN (ICD-10 - I10) [...] and consider further dose adjustments if needed 08/16/2024 KADEN (obstructive sleep apnea) (ICD-10 - G47.33) 05/18/2024 Benign essential HTN (ICD-10 - I10) [...] and consider further dose adjustments if needed 08/16/2024 Benign essential HTN (ICD-10 - I10) 08/16/2024 Encounter for screening for cardiovascular disorders (ICD-10 - Z13.6) 08/16/2024 Encounter for screening for depression (ICD-10 - Z13.31) 08/16/2024 Maddy Lucio, a female patient with a history of mood and anxiety disorders, presents for follow-up of medication management. Mood Disorder Assessment: Patient reports mood as okay with no current suicidal ideation. Recent medication changes were implemented approximately 6-8 weeks ago, including a switch from duloxetine (Cymbalta) to sertraline. Patient denies any side effects from the medication changes. No reports of hallucinations or paranoia. Plan: - Continue quetiapine as currently prescribed - Monitor for changes in mood after sertraline increase - Follow up in 6 weeks or sooner if concerns arise Anxiety Disorder Assessment: Patient reports anxiety as okay and all right. Currently taking hydroxyzine three times daily as needed for anxiety management. Plan: - Continue hydroxyzine as needed for anxiety - Increase sertraline to 150 mg daily for better anxiety control Insomnia Assessment: Patient reports insufficient sleep with difficulty falling asleep and frequent tossing and turning. Currently taking zolpidem (Ambien) prescribed by primary care physician and quetiapine at bedtime for sleep. Plan: - Practice good sleep hygiene Tobacco Use Assessment: Patient reports ongoing tobacco use but expresses desire to quit, acknowledging the difficulty of cessation. Plan: - Encourage continued efforts to quit smoking 11/24/2024 Other Rosemary Lucio, female, presenting with grief and depressive symptoms following the recent of her mother from lung cancer. Patient reports sleep disturbance and feeling more down. Grief Assessment: Patient's mother on the of last month due to lung cancer. Patient is experiencing normal grief reactions, including feeling more down and having significant sleep disturbance (1-2 hours of sleep per night). No suicidal ideation reported. Patient denies significant anxiety increase or psychotic symptoms. Current symptoms appear to be within the range of normal bereavement, but continued monitoring is warranted given the recency of the loss and the intensity of sleep disturbance. Plan: - Offered referral to grief counselor; patient declined at this time - Follow-up appointment scheduled in 6 weeks to reassess grief process and symptoms - Encourage patient to reach out if additional support is needed before next appointment Major Depressive Disorder Assessment: Patient reports feeling more down lately, which is likely exacerbated by recent loss. Current medication regimen includes Cymbalta (duloxetine) for depression and anxiety, which was switched from sertraline a couple of months ago due to inadequate anxiety control. Patient denies side effects from Cymbalta and reports taking it in the morning as prescribed. Plan: - Continue Cymbalta - Continue hydroxyzine as needed for anxiety - Monitor efficacy of current antidepressant regimen in context of grief Insomnia Assessment: Patient reports significant sleep disturbance, getting only 1-2 hours of sleep per night. Currently taking quetiapine 100 mg in the morning and 300 mg at bedtime, as well as Ambien (zolpidem) prescribed by another provider. Patient reports Ambien is not helping lately. Plan: - Continue quetiapine 100 mg in the morning and 300 mg at bedtime - Reassess sleep at follow-up appointment and consider adjustments to sleep regimen if insomnia persists Medical Decision Making Rosemary Lucio is a female patient presenting with depressed mood and sleep disturbances following the recent loss of her mother to lung cancer. The patient's grief reaction is the primary focus, with reported symptoms of depressed mood, anxiety, and insomnia (1-2 hours of sleep per night). Current medications, including sertraline, Cymbalta, hydroxyzine, quetiapine, and Ambien, were reviewed for efficacy and side effects. The clinician considered whether medication adjustments were necessary to address the increased depressive symptoms but weighed this against the normal grief process. The decision was made to maintain current medications without changes, acknowledging that pharmacological interventions may have limited impact during acute bereavement. The possibility of grief counseling was discussed as a non-pharmacologi kal intervention. Plan Of Treatment Next Appt Details Provider Name:Gail alas, 04/18/2025 01:30:00 PM, [address] [place] [address] [address] [facility] [address], [place], [address], Insurance Providers Payer Name Payer Address Payer Phone Subscriber Number Group Number Insured Name Patient Relationship to Insured Coverage Start Date Coverage End Date [facility] Medicare Replacement/A dvantage - Ppo [address] [address] [place] [address] [id number] ROSEMARY LUCIO Self - patient is the insured [facility] Medicaid Replacement - Hmo [address] [place] [address] [id number] ROSEMARY LUCIO Self - patient is the insured Medical (General) History Medical History History ICD Code Problems: Generalized anxiety disorder Schizoaffective disorder bipolar type Primary insomnia Morbid obesity E66.01 Hypertension I10 Asthma J45.909 Tobacco dependence syndrome F17.200 Anemia D64.9 History of bilateral hip replacements Z9 6.643 Osteoarthritis M19.90 Surgical History Surgery Date(Month/Year) Subdural hematoma (25275) Breast surgery () Removal of gallbladder (37282) Right knee replacement 05/2023 Left hip replacement 2014 Right hip replacement 2018 gastric bypass surgery 2006 Hospitalization History Reason Date(Month/Year) surgical stays
--- NOTE | 2025-02-25 18:29 | ED.LOWEXIN ---
HPI - Extremity Injury (Lower) General Chief Complaint: Extremity Injury, Lower Stated Complaint: fell 12/4, L knee pain Time Seen by Provider: 02/25/25 18:12 History of Present Illness HPI Narrative: Patient is a 59 year female who presents to the ER after sustaining a knee injury 2 days ago. She reports she was walking out of store when she missed a step and landed on concrete. Patient reports she landed on her left knee cap. She endorses pain with range of motion and walking. Patient endorses a history of gastric bypass surgery and right knee replacement. She reports she is supposed to get her left knee replaced in April. Patient denies any calf pain, recent fevers, pain behind her kneecap, or disfigurement. Related Data Home Medications ?Medication ?Instructions ?Recorded ?Confirmed ?Last Taken ?Type albuterol sulfate 90 mcg/actuation 1 inhalation inhalation Q4H PRN 05/19/19 02/05/24 Unknown History aerosol inhaler (ProAir HFA) Shortness Of Breath fluticasone 100 mcg-salmeterol 50 1 puff inhalation DAILY 05/19/19 02/05/24 Unknown History mcg/dose blistr powdr for inhalation (Advair Diskus) furosemide 40 mg tablet 40 mg PO QAM 05/19/19 02/05/24 Unknown History pantoprazole 40 mg tablet,delayed 40 mg PO QAM 05/19/19 02/05/24 Unknown History release zolpidem 10 mg tablet (Ambien) 10 mg PO QHS PRN Sleep 12/28/20 02/05/24 Unknown History hydroxyzine HCl 25 mg tablet 25 mg TID PRN Anxiety 04/08/23 02/05/24 Unknown History oxycodone-acetaminophen 5 mg-325 1 tablet Q6H PRN Pain 04/08/23 02/05/24 Unknown History mg tablet quetiapine 100 mg tablet 100 mg DAILY 04/08/23 02/05/24 Unknown History semaglutide 1 mg/dose (4 mg/3 mL) 1 mg subcut WEEKLY 04/08/23 02/05/24 04/04/23 History subcutaneous pen injector (Ozempic) Allergies Allergy/AdvReac Type Severity Reaction Status Date / Time aspirin Allergy Severe Nausea Verified 02/25/25 17:35 shellfish derived Allergy Severe Anaphylactic Verified 12/06/25 17:35 Shock NSAIDS (Non-Steroidal Allergy Intermediate Nausea and Verified 02/25/25 17:35 Anti-Inflamma Vomiting latex Allergy Mild Itching Verified 02/25/25 17:35 hands ibuprofen Allergy Unknown Nausea Verified 02/25/25 17:35 Review of Systems Review of Systems: All systems reviewed & are unremarkable except as noted in HPI and below PMFSH Past Medical History Medical History History of vaginal delivery Seasonal allergies Asthma Essential (primary) hypertension Liver disease, unspecified Personal history of nicotine dependence Surgical History Surgical History H/O knee surgery H/O bilateral breast reduction surgery History of cholecystectomy History of abdominoplasty History of gastric surgery History of hernia repair Family History Family History Father Hypertension Family history of diabetes mellitus in first degree relative Patient's father is in good health Diabetes mellitus Cerebrovascular accident Mother Family history of malignant neoplasm of breast in first degree relative Hypertension Patient's mother is in good health Family history of diabetes mellitus in first degree relative Other Carcinoma of colon Social History Social History Smoking packs per day: 0.5 Smoking cigarettes per day: 10.0 Years smoked: 10 Smoking pack-years: 5.00 Smoking status: Former smoker Tobacco type: cigarettes Second hand tobacco smoke exposure: Yes (@ TIMES WHEN IN A CAR OR SOMEONE ELSE'S HOUSE) Smoking end date: 01/21/23 Additional smoking assessment comments: PT DENIES ALL FORMS OF TOBACCO USE Alcohol intake: current Alcohol use details: 3-4/MONTH Substance use: never Substance use type: does not use Lack of Transportation: No Lack of Food: Never True Current Housing: I Have Housing Concerned About Future Housing: No Difficulty Paying Gas/Electric Bills: No Difficulty Paying for Meds: No Currently Unemployed: No Education: High School Diploma/GED Difficulty w/ Childcare or Family Care: No Living arrangements: alone Occupation/Education: unemployed Spiritual care concerns: No Exam Narrative: GENERAL: Well appearing, Obese, non-toxic, in no acute distress. HEAD: Normocephalic, atraumatic. NECK: Supple. No adenopathy, no masses. RESPIRATORY: Airway patent, respirations nonlabored. Clear to auscultation bilaterally, no rales, rhonchi, wheezing. CARDIOVASCULAR: Regular rate and rhythm without murmurs, rubs, or gallops. Peripheral pulses 2+ and equal bilaterally. ABDOMINAL: Soft, nontender, nondistended, no hepatosplenomegaly. Normoactive BS. MUSCULOSKELETAL: Moves all extremities. Strength/ROM intact without gross deformities. L knee pain with manipulation, external rotation, internal rotation, flexion and extension. Mild bruising around the knee cap. No excessive swelling noted. SKIN: Warm, dry, normal color. No rashes. NEURO: A&O X3. Speech clear. Cranial nerves II-XII intact. No ataxic movements. PSYCHIATRIC: Appropriate mood and affect. Normal interaction. Course Vital Signs Vital signs: Vital Signs Temperature 36.4 C 02/25/25 16:43 Pulse Rate 61 02/25/25 16:43 Respiratory Rate 17 02/25/25 16:43 Blood Pressure 128/61 02/25/25 16:43 Pulse Oximetry 96 02/25/25 16:43 Oxygen Delivery Room Air 02/25/25 16:43 Temperature 36.4 C 02/25/25 16:43 Pulse Rate 61 02/25/25 16:43 Respiratory Rate 17 02/25/25 16:43 Blood Pressure 128/61 02/25/25 16:43 Pulse Oximetry 96 02/25/25 16:43 Oxygen Delivery Room Air 02/25/25 16:43 MDM MDM Narrative Medical decision making narrative: Patient is a 59 year female who presents to the ER after sustaining a knee injury 2 days ago. She reports she was walking out of store when she missed a step and landed on concrete. Patient reports she landed on her left knee cap. She endorses pain with range of motion and walking. Patient endorses a history of gastric bypass surgery and right knee replacement. She reports she is supposed to get her left knee replaced in April. Patient denies any calf pain, recent fevers, pain behind her kneecap, or disfigurement. Patient Education/Shared MDM: Results of imaging shared with patient. She reports she is unable to take NSAIDs due to previous gastric bypass surgery. Patient will be given 1 dose of steroids here in the ER to see if this helps relieve some of her pain, along with Tylenol and a lidocaine patch. Patient strongly advised to follow-up with her PCP in the next 2-3 days for re-evaluation. She will be discharged home with a prescription for lidocaine patches. Strict return precautions provided. Patient verbalized understanding and is in agreement with plan. Vital signs stable at time of discharge. All questions answered. Differential Diagnosis Differential Diagnosis: Knee fracture, knee dislocation, joint effusion, musculoskeletal pain Imaging Data Attestation: I personally reviewed and interpreted this imaging study as follows: Radiologist's impression: ITS Impressions Knee X-Ray 02/25/25 18:21 Impression: No acute fracture or malalignment. Discharge Plan Discharge Clinical Impression: Left knee sprain, Acute knee pain, Traumatic ecchymosis of left knee, Fall Patient Disposition: Home Condition: Stable Instructions: Antibiotic Form Additional Instructions: Please return to the ER with any worsening symptoms. Follow-up with primary care provider as needed for further evaluation Take all medications as prescribed, including regularly scheduled medications. You may use lidocaine patches on the site for pain relief. Please continue icing the site every 2 hours for 20 minutes. Haresh wrap may help relieve your swelling and pain symptoms. Patient Language: [place] Prescriptions: New lidocaine 5 % adhesive patch,medicated 1 patch topical DAILY Qty: 30 0RF Rx Instructions: leave on most painful area for up to 12 hrs No Action fluticasone propion-salmeterol [Advair Diskus] 100-50 mcg/dose blister with device 1 puff INHALATION DAILY furosemide 40 mg tablet 40 mg PO QAM pantoprazole 40 mg tablet,delayed release (DR/EC) 40 mg PO QAM albuterol sulfate [ProAir HFA] 90 mcg/actuation HFA aerosol inhaler 1 inhalation INHALATION Q4H PRN (Reason: Shortness Of Breath) zolpidem [Ambien] 10 mg tablet 10 mg PO QHS PRN (Reason: Sleep) quetiapine 100 mg tablet 100 mg DAILY oxycodone-acetaminophen 5-325 mg tablet 1 tablet Q6H PRN (Reason: Pain) hydroxyzine HCl 25 mg tablet 25 mg TID PRN (Reason: Anxiety) Ozempic 1 mg/dose (4 mg/3 mL) pen injector 1 mg SUBCUT WEEKLY Rx Instructions: TAKES ON SATURDAYS FOR WEIGHT LOSS Follow-up/Referrals: Bob,Melissa Wills, USER INTERFACE ARTIST [Primary Care Provider, Unknown] Time of Disposition: 18:38
[2025-02-25] MEDS: LIDOCAINE 5% PATCH 1 PATCH TRANSDERM (18:34)
[2025-02-25] MEDS: ACETAMINOPHEN 500 MG TABLET 1000 MG PO (18:34)
[2025-02-25 18:44] VITALS: BP 129/72
--- OUTSIDE RECORDS SUMMARY | 2025-02-25 18:58 | XMS_ITS | Encounter Summary ---
Author Organization [facility] Address [address] [place] [address] Phone Care Team Providers Care Brake Repair Mechanic Name Role Phone Melissa Rojas CLINIC CMA Primary Care Provider [phone] Susan Kirkpatrick CONTROL ROOM HELPER Unavailable [phone] Encounter Details Date Type Department Care Team (Late st Contact Info) Description 04/01/2022 Orders Only [facility] Medicine Orthopaedic Surgery [address] [facility] Advanced Medicine [address]th [place] [address] [place] [address] Kade Rivera MD [address] [facility] [address] [place], [place] [id number] Status post orthopedic surgery, follow-up exam (Primary [...] on file Legal Sex Female 9:28 AM LICENSE EXAMINER Gender Identity Not on file Sexual Orientation Not on file documented as of this encounter Plan of Treatment Upcoming Encounters Date Type Department Care Team (Latest Contact Info) Description 04/27/2025 7:30 AM LICENSE EXAMINER Hospital Encounter [facility] [address] [place] [phone] Surinder Garcia MD [address] [facility] [place], [place] [id number] 04/27/2025 7:30 AM LICENSE EXAMINER - 04/27/2025 10:12 AM LICENSE EXAMINER Surgery [facility] [address] [place] [phone] Surinder Garcia MD [address] [facility] [place], [place] [id number] ARTHROPLASTY TOTAL KNEE- Left Total Knee Arthroplasty Scheduled Procedures Name Priority Associated Diagnoses Date/Ti me ARTHROPLASTY TOTAL KNEE Primary osteoarthritis of left knee 04/27/2025 7:30 AM LICENSE EXAMINER documented as of this encounter Visit Diagnoses Diagnosis Status post orthopedic surgery, follow-up exam- Primary S/P right rotator cuff repair Primary osteoarthritis of left knee documented in this encounter Care Teams Brake Repair Mechanic Relationship Specialty Start Date End Date Melissa Rojas NP PCP - General Nurse Practitioner 11/13/21 Susan Kirkpatrick LCSW [address] [facility] ([facility]) Mailstop [phone] [place] [address] [facility] Outpatient Machine Maintenance Supervisor 06/16/23 06/18/23 documented as of this encounter
--- OUTSIDE RECORDS SUMMARY | 2025-02-25 18:58 | XMS_ITS | Clinical Summary ---
Author Organization [facility] Address [address] [place] [address] Care Team Providers Care Drying Frame Operator Name Role Phone Unavailable Primary Care Provider Unavailabl e Source Comments [facility],non-owned Affiliates and Associated Physician Practices is amultiple site organization consisting of ambulatory clinics and hospital sitesin [place], [place], [place] and [place]. This disclosure is being madepursuant to the Care Everywhere program and may not contain all information available regarding this patient. Last updated 17.[facility] Allergies Active Allergy Reactions Criticality Noted Date [...] Indications: anxiety 07/18/19 Active Vitamin D, Ergocalciferol, 52815 units CAPSIndications: Vitamin D Deficiency Take 50,000 [...] on file Legal Sex Female 5:01 AM ENGINEERING PRODUCTION LIAISON Gender Identity Not on file Sexual Orientation [...] patient's age to complete this topic Insurance [facility] [place] [facility] MANAGED MEDICARE ADV
--- OUTSIDE RECORDS SUMMARY | 2025-02-25 18:58 | XMS_ITS | Encounter Summary ---
Author Organization [facility] Address [address] [place] [address] Care Team Providers Care Diversity Intern Name Role Phone Melissa Rojas WORKSHOP MANAGER Primary Care Provider [phone] Susan Kirkpatrick MENAGERIE CARETAKER Unavailable [phone] Encounter Details Date Type Department Care Team (Late st Contact Info) Description 10/04/2022 Documentation [facility] [address] [facility] Advanced Medicine [address] [place] [address] Telly Herrmann MD [address] [place] [address] Social History Tobacco Use Types Packs/Day Years [...] on file Legal Sex Female 9:28 AM MARKET CONSULTANT Gender Identity Not on file Sexual Orientation Not on file documented as of this encounter Plan of Treatment Upcoming Encounters Date Type Department Care Team (Latest Contact Info) Description 04/27/2025 7:30 AM MARKET CONSULTANT Hospital Encounter [facility] Operating Room [address] [place] [address] Surinder Garcia MD [address] [place] [address] 04/27/2025 7:30 AM MARKET CONSULTANT - 04/27/2025 10:12 AM MARKET CONSULTANT Surgery [facility] Operating Room [address] [place] [address] Surinder Garcia MD [address] [place] [address] ARTHROPLASTY TOTAL KNEE- Left Total Knee Arthroplasty Scheduled Procedures Name Priority Associated Diagnoses Date/Ti me ARTHROPLASTY TOTAL KNEE Primary osteoarthritis of left knee 04/27/2025 7:30 AM MARKET CONSULTANT documented as of this encounter Visit Diagnoses Not on filedocumented in this encounter Care Teams Diversity Intern Relationship Specialty Start Date End Date Melissa Rojas NP PCP - General Nurse Practitioner 11/13/21 Susan Kirkpatrick LCSW [address] [facility] ([facility]) Mailstop [phone] [place] [address] SHOP Outpatient Cable Repairer 06/16/23 06/18/23 documented as of this encounter
--- OUTSIDE RECORDS SUMMARY | 2025-02-25 18:58 | XMS_ITS | Clinical Summary ---
Author Organization [facility] Address [facility] [place] [address] Care Team Providers Care Cardiology Technologist Name Role Phone Melissa Rojas OUTPATIENT INTERVIEWING CLERK Primary Care Provider [phone] Allergies Active Allergy Reactions Criticality Noted Date [...] bedtime 01/27/20 23 Active mv,kal,iron,mn/fo lic acid/chol (DRJS-TBGA-YFDLB, PABA, ORAL)Indications: supplement Take 2 tablet/chew tab [...] (12/13/2021): Added automatically from request for surgery [id number] Impingement syndrome of left shoulder 12/13/2021 Overview (12/13/2021): Added automatically from request for surgery [id number] Biceps tendinitis of left upper extremity 2021 Overview (12/13/2021): Added automatically from request for surgery [id number] Tear of left rotator cuff 09/25/2021 Pain in joint of right shoulder 07/24/2021 Primary osteoarthritis of right knee 06/11/2021 Overview (06/11/2021): Added automatically from request for surgery [id number] History of bilateral hip replacements 01/29/2018 Right knee pain 01/29/2018 Tobacco dependence syndrome 01/23/2016 Other specified symptoms and signs involving the circulatory and respiratory systems 01/23/2016 Hypertension 01/23/2016 Asthma 01/23/2016 Localized adiposity 01/21/2012 Anemia 03/10/2011 Encounters Date Type Department Care Team Description 02/14/2025 Telephone [facility] Orthopaedic Surgery [address] [facility] Advanced Medicine 6th [place] [address] [place] [address] Surinder Garcia MD Reschedule Knee Surgery 01/23/2025 2:10 PM DIRECTOR OF COMPLIANCE Office Visit [facility] Orthopaedic Surgery [address] [facility] 6th [place] [address] [place] [phone] Surinder Garcia MD Total knee replacement status, right (Primary Dx); Primary osteoarthritis of left knee 01/23/2025 1:30 PM DIRECTOR OF COMPLIANCE - 01/23/2025 11:59 PM DIRECTOR OF COMPLIANCE Hospital Encounter [facility] ([facility] [address] [place] [address] Total knee replacement status, right; Primary osteoarthritis of left knee Discharge Disposition: Discharge to home or self care from Last 3 Months Immunizations Immunization Administration Dates Next Due Influenza, Quadrivalent, Split, Intramuscular Influenza, Unspecified 01/01/2017 Surgical History Surgery Date Site/Laterality Comments NE GASTRIC RSTCV W/BYP W/SHORT LIMB 150 CM/< 03/23/2005 - 03/22/2006 Gastric Surgery For Morbid Obesity Bypass With Ellen-en-Y - 2005 (Added by TW Conv) NE RPR UMBILICAL HERNIA < 5 YRS REDUCIBLE [...] on file Legal Sex Female 9:28 AM DIRECTOR OF COMPLIANCE Gender Identity Not on file Sexual Orientation [...] (Latest Contact Info) Description 04/27/2025 7:30 AM DIRECTOR OF COMPLIANCE Hospital Encounter [facility] Operating Room [address] [place] [address] Surinder Garcia MD [address] [facility] [place] [place] [address] 04/27/2025 7:30 AM DIRECTOR OF COMPLIANCE - 04/27/2025 10:12 AM DIRECTOR OF COMPLIANCE Surgery [facility] Operating Room [address] [place] [phone] Surinder Garcia MD [address] [facility] [place] [place] [address] ARTHROPLASTY TOTAL KNEE- Left Total Knee Arthroplasty Scheduled Procedures Name Priority Associated Diagnoses Date/Ti me ARTHROPLASTY TOTAL KNEE Primary osteoarthritis of left knee 04/27/2025 7:30 AM DIRECTOR OF COMPLIANCE Health Maintenance Due Date Last Done Comments [...] [employer] Implanted Type Area Courtesy Car Driver Device Identifier Shelf Expiration Date Model / Serial / Lot Hip Replacement Bilateral: Hip [employer] Swivelock C 4.75mm 19.1mm Closed Eyelet Vent [place] Suture Ar-2324bcc - [id number] Implanted:Qty: 1 on 01/01/2022 by Kade Rivera MD at [facility] [employer] [id number] 09/19/2025 AR-2324BC C / / [id number] [employer] Swivelock C 4.75mm 19.1mm Closed Eyelet Vent [place] Suture Ar-2324bcc - [id number] Implanted:Qty: 1 on 10/01/2022 by Kade Rivera MD at [facility] Right: Shoulder [employer] [id number] 05/20/2026 AR-2324BCC / / [id number] [employer] Baseplate Tibial Knee Cemented Right Fixed Stemmed Persona Size E Tivanium [id number] - [id number] Implanted:Qty: 1 on 06/12/2023 by Surinder Garcia MD at [facility] Right: Knee [employer] [id number] 03/07/2033 [id number] / / [id number] [employer] Persona 14mm 30+ Mm Knee Tibia Taper Extension Stem [id number] - [id number] Implanted:Qty: 1 on 06/12/2023 by Surinder Garcia MD at [facility] Right: Knee [employer] [id number] 06/14/2032 [id number] / / [id number] [employer] Persona Cemented Posterior Stabilize Knee Right 8 Standard [id number] - [id number] Implanted:Qty: 1 on 06/12/2023 by Surinder Garcia MD at [facility] Right: Knee [employer] [id number] 08/17/2030 [id number] / / [id number] [employer] Simplex P Full Dose Radiopaque Preblend Cement Bone Tobramycin 6197-9-001 - [id number] Implanted:Qty: 2 on 06/12/2023 by Surinder Garcia MD at [facility] Right: Knee [employer] 08/20/2024 6197-9-001 / / [id number] [employer] Insert Tibial Knee Vitamin E Fixed Rt Persona Vivacit E 10mm Size 6 9 E F Polyethylene [id number] - [id number] Implanted:Qty: 1 on 06/12/2023 by Surinder Garcia MD at [facility] Right: Knee [employer] [id number] 09/05/2027 [id number] / / [id number] Procedures Procedure Name Priority Date/Time Associated Diagnosis Comments XR KNEE LEFT 3 VIEWS Schedule Routine, Read Routine (OP Routine) 01/23/2025 2:11 PM DIRECTOR OF COMPLIANCE Total knee replacement status, right Primary osteoarthritis of left knee XR KNEE RIGHT 3 VIEWS Schedule Routine, Read Routine (OP Routine) 01/23/2025 2:11 PM DIRECTOR OF COMPLIANCE Total knee replacement status, right Primary osteoarthritis of left knee from Last 3 Months Results * XR Knee Right 3 Views (01/23/2025 2:11 PM DIRECTOR OF COMPLIANCE) Anatomical Region Laterality Modality Lower Extremities, Knee Right Computed Radiography 01/23/2025 2:23 PM DIRECTOR OF COMPLIANCE Impressions 01/23/2025 2:23 PM DIRECTOR OF COMPLIANCE 1. Severe patellofemoral predominant, tricompartmental left knee osteoarthritis. 2. Two component right knee arthroplasty in unchanged, near anatomic position. Electronically signed by: Fernando Damian M.D. Narrative 01/23/2025 2:23 PM DIRECTOR OF COMPLIANCE EXAMINATION: XR KNEE RIGHT 3 VIEWS, XR [...] Knee Left 3 Views (01/23/2025 2:11 PM DIRECTOR OF COMPLIANCE) Anatomical Region Laterality Modality Lower Extremities, Knee Left Computed Radiography 01/23/2025 2:23 PM DIRECTOR OF COMPLIANCE Impressions 01/23/2025 2:23 PM DIRECTOR OF COMPLIANCE 1. Severe patellofemoral predominant, tricompartmental left knee osteoarthritis. 2. Two component right knee arthroplasty in unchanged, near anatomic position. Electronically signed by: Fernando Damian M.D. Narrative 01/23/2025 2:23 PM DIRECTOR OF COMPLIANCE EXAMINATION: XR KNEE RIGHT 3 VIEWS, XR [...] Diagnosed Date Autogenerated Problem 02/22/2025 Insurance [facility] MEDICARE ADVANTAGE [facility] [facility] MEDICARE ADVANTAGE [facility] MED[facility] ADVANTAGE Advance Directives For more information, please contact: [phone] * Full Code (Latest Code Status on File) Date Activated Date Inactivated Comments 06/12/2023 2:14 PM 06/15/2023 4:51 PM Care Teams Cardiology Technologist Relationship Specialty Start Date End Date Melissa Rojas NP PCP - General Nurse Practitioner 11/13/21
== END 2025-02-25 20:32 | disposition home or self-care (01) ==
LOC: ANHED 18:56
PROVIDERS: Emergency Provider Registered Nurse; PCP Registered Nurse
DX: S83.92XA Sprain of unspecified site of left knee, initial encounter (principal); I10 Essential (primary) hypertension; J45.909 Unspecified asthma, uncomplicated; K76.9 Liver disease, unspecified; Z98.84 Bariatric surgery status; Z96.651 Presence of right artificial knee joint; Z87.891 Personal history of nicotine dependence; Z90.49 Acquired absence of other specified parts of digestive tract; W10.9XXA Fall (on) (from) unspecified stairs and steps, initial encounter
CPT/HCPCS: 73564; 99283; A9270; J7512